=== PATIENT | female | born 1960 | race Caucasian/White ===

== ENCOUNTER 2022-06-13 15:06 | Outpatient (CLI) | payer OTHER, SELFPAY ==
[2022-06-13 16:22] LABS: Basophils Absolute Auto 0.1 K/mm3 (0.0-0.1); Basophils Percent Auto 0.8 % (0.2-1.2); Eosinophils Absolute Auto 0.4 K/mm3 (0-0.3); Eosinophils Percent Auto 4.6 % (0-4.4); Hematocrit 27.2 % (37.0-47.0); Hemoglobin 8.4 g/dL (12.0-15.0); Immature Granulocyte Absolute 0.05 K/mm3 (0.00-0.031); Immature Granulocyte Percent A 0.6 % (0-0.5); Lymphocytes Absolute Auto 2.13 K/mm3 (0.9-3.2); Lymphocytes Percent Auto 23.9 % (18.3-44.2); Mean Corpuscular HGB Conc 30.9 g/dl (32-36); Mean Corpuscular Hemoglobin 27.5 pg (26-34); Mean Corpuscular Volume 88.9 fl (80-100); Mean Platelet Volume 9.5 fl (7.4-10.4); Monocytes Absolute Auto 0.8 K/mm3 (0.1-0.6); Monocytes Percent Auto 8.7 % (2.6-8.5); Neutrophils Absolute Auto 5.5 K/mm3 (1.3-6.7); Neutrophils Percent Auto 61.4 % (45.5-73.1); Platelet Count Result 443 k/mm3 (150-375); Red Blood Count 3.06 M/mm3 (4.2-5.4); Red Cell Distribution Width 14.6 % (11.5-14.5); White Blood Count 8.9 K/mm3 (4.5-10.0)
== END 2022-06-13 15:07 | disposition home or self-care (01) ==
LOC: ANHLAB 15:12
PROVIDERS: PCP Family Medicine; Visit Provider Physician Assistant Surgical
DX: D64.9 Anemia, unspecified (principal)
CPT/HCPCS: 36415; 85025

== ENCOUNTER 2023-07-18 17:37 | Emergency (ER) | payer OTHER, SELFPAY ==
--- NOTE | ~2023-07-18 | CT_ITS ---
EXAMINATION: CT pelvis wo con DATE: 07/18/2023 21:03 INDICATION: Right hip pop and pain. TECHNIQUE: Computed tomography (CT) of the pelvis was performed without intravenous contrast. Automat ed exposure control and iterative reconstruction technique were employed. The dose-length product was 585.93 mGy-cm. COMPARISON: Pelvis and hip radiographs 07/18/2023 FINDINGS: Aortic atherosclerosis is noted. The bladder is distended. There are no pathologically enla rged lymph nodes. There is no free intraperitoneal fluid. Bone alignment is normal. No fracture. Ther e is moderate lumbar spondylosis. There is moderate osteoarthritis of the hips. IMPRESSION: 1. Moderate osteoarthritis of the hips. Reviewed, dictated and finalized at location E. OLOGY NURSE
--- NOTE | ~2023-07-18 | XR_ITS ---
EXAMINATION: XR hip RT 2V w AP pelvis DATE: 07/18/2023 18:22 INDICATION: Right hip pain. TECHNIQUE: An anteroposterior view of the pelvis and 2 views of right hip were obtained. COMPARISON: None. FINDINGS: Bone alignment is normal. No fracture. There is moderate lumbar spondylosis. There is moder ate osteoarthritis of the hips. IMPRESSION: 1. Moderate osteoarthritis of the hips. Reviewed, dictated and finalized at location E. INSPECTION SPECIALIST
[2023-07-18 17:39] VITALS: BP 131/62; PULSE 78; RESP 20; TEMP 36.2; O2SAT 100
--- NOTE | 2023-07-18 18:07 | ED.EXTPRO ---
HPI - Extremity Problem General Chief complaint: Extremity Problem,Nontraumatic <Ish Love APRN - Last Filed: 07/18/23 18:10> Stated complaint: right leg pain/swelling <Ish Love APRN - Last Filed: 07/18/23 18:10> Time Seen by Provider: 07/18/23 18:08 <Ish Love APRN - Last Filed: 07/18/23 18:10> Source: patient <Ish Love APRN - Last Filed: 07/18/23 18:10> Mode of arrival: ambulatory <Ish Love APRN - Last Filed: 07/18/23 18:10> Limitations: no limitations <Ish Love APRN - Last Filed: 07/18/23 18:10> History of Present Illness HPI Narrative: Supriya is a 62-year-old female patient presenting to the ER today with complaints of right hip/leg pain. She reports that she got up this morning and felt a pop in her hip. Initially had pain to her lateral hip and now it is more towards her groin radiating down her leg. Pain is worse when she is bearing weight. <Ish Love APRN - Last Filed: 07/18/23 18:10> Related Data Allergies/Adverse reactions: Allergies Allergy/AdvReac Type Severity Reaction Status Date / Time No Known Allergies Allergy Verified 07/18/23 20:51 <Ish Love APRN - Last Filed: 07/18/23 18:10> Review of Systems Review of Systems: Pertinent positives per HPI. Patient denies any fever, chills, rash, headache, visual changes, dizziness, cough, runny nose, sore throat, shortness of breath, chest pain, palpitations, nausea, vomiting, diarrhea, constipation, abdominal pain, or any urinary issues. <Ish Love APRN - Last Filed: 07/18/23 18:10> PMFSH Comments At the time of my signature, I reviewed and agree with the nursing past medical, surgical, social, and family history. There is no relevant family history pertinent to the patient complaint. <Ish Love APRN - Last Filed: 07/18/23 18:10> Exam Narrative: General: Well-developed, well nourished, in no apparent distress Head: Normocephalic, atraumatic. Cardio: Regular rate and rhythm, s1 and s2 normal, no murmur appreciated. Resp: Clear to auscultation bilaterally, no rhonchi, rales, wheezing or rubs. Musculoskeletal: No deformity, tender to palpation over the anterior hip joint, nontender to palpation over the lateral or posterior hip, grossly normal range of motion, muscle strength strong and equal, peripheral pulse strong, 1+ pitting edema bilaterally, no cyanosis, sitting in a wheelchair <Ish Love PURCHASE REQUEST EDITOR - Last Filed: 07/18/23 18:10> Course Course Emergency Course: Portions of this record may have been created with voice recognition software. <Ish Love APRN - Last Filed: 07/18/23 18:10> Vital Signs Vital signs: Vital Signs Temperature 97.1 F L 07/18/23 17:39 Pulse Rate 78 07/18/23 17:39 Respiratory Rate 20 07/18/23 17:39 Blood Pressure 131/62 07/18/23 17:39 Pulse Oximetry 100 07/18/23 17:39 Oxygen Delivery Room Air 07/18/23 17:39 Temperature 97.1 F L 07/18/23 17:39 Pulse Rate 76 07/18/23 20:54 Respiratory Rate 18 07/18/23 20:54 Blood Pressure 129/54 L 07/18/23 20:54 Pulse Oximetry 99 07/18/23 20:54 Oxygen Delivery Room Air 07/18/23 17:39 Vital signs reviewed <Ish Love, PURCHASE REQUEST EDITOR - Last Filed: 07/18/23 18:10> Vital Signs Temperature 97.1 F L 07/18/23 17:39 Pulse Rate 78 07/18/23 17:39 Respiratory Rate 20 07/18/23 17:39 Blood Pressure 131/62 07/18/23 17:39 Pulse Oximetry 100 07/18/23 17:39 Oxygen Delivery Room Air 07/18/23 17:39 Temperature 97.1 F L 07/18/23 17:39 Pulse Rate 76 07/18/23 20:54 Respiratory Rate 18 07/18/23 20:54 Blood Pressure 129/54 L 07/18/23 20:54 Pulse Oximetry 99 07/18/23 20:54 Oxygen Delivery Room Air 07/18/23 17:39 <Bruce Hernandez PA-C - Last Filed: 07/19/23 01:19> MDM - Extremity (Nontraumatic) MDM Narrative Medical decision making n
[2023-07-18] MEDS: ACETAMINOPHEN 500 MG TABLET 1000 MG PO (20:52)
[2023-07-18 20:54] VITALS: BP 129/54; PULSE 76; RESP 18; O2SAT 99
== END 2023-07-18 21:43 | disposition home or self-care (01) ==
PROVIDERS: Emergency Provider Physician Assistant; PCP Family Medicine
DX: S79.911A Unspecified injury of right hip, initial encounter (principal); X50.0XXA Overexertion from strenuous movement or load, initial encounter
CPT/HCPCS: 72192; 73502; 99283; A9270

== ENCOUNTER 2024-12-25 18:55 | Emergency (ER) | payer MEDICARE, MEDICAID, SELFPAY ==
--- NOTE | ~2024-12-25 | CT_ITS ---
Clinical Indication: Chest pain, abdominal pain CT Scan of the Chest, Abdomen, and Pelvis with Contrast: Technique: Contiguous sections were acquired throughout the chest, abdomen, and pelvis after intraven ous administration of 100 cc of Omnipaque 350. Dose reduction technique was used on this scan by jatin overton automated exposure control and iterative reconstruction technique. The dose-length product (DL P) was 1393.94 mGy-cm. Findings: There is no evidence of any significant mediastinal, hilar or axillary lymphadenopathy. The mediastin al soft tissues and vascular structures appear normal. Ujnbm-mu-ncpsqleh hiatal hernia present. There is no evidence of pleural or pericardial effusion. The lungs are clear. No pulmonary nodules or infiltrates are noted. There is diffuse hepatic steatosis. The spleen, pancreas, gallbladder, adrenals and kidneys are withi n normal limits. There are atherosclerotic calcifications of the aorta. No lymphadenopathy. No bowel obstruction or bowel wall thickening. There is mild diverticulosis. Urinary bladder is unremarkable. No pelvic mass seen. No ascites. Impression: No acute abnormalities seen. Ueelm-lf-lgrqxdcg hiatal hernia. Diffuse hepatic steatosis. Reviewed, dictated and finalized at [facility]. Impression: No acute abnormalities seen. Ldefd-ml-cmxocwvz hiatal hernia. Diffuse hepatic steatosis.
--- NOTE | ~2024-12-25 | CT_ITS ---
CT head without contrast Indication: Altered mental status Technique: Serial scans were obtained through the brain without the administration of contrast. Dose reduction technique was used on this scan by utilizing automated exposure control and iterative recon struction technique. The dose-length product (DLP) was 605.33 mGy-cm. Findings: There is no evidence of intracranial hemorrhage, mass lesion, or acute infarct. The ventri cles and subarachnoid spaces are dilated, consistent with mild atrophy. Low attenuation regions are seen within the periventricular white matter bilaterally, likely representing changes from chronic mi crovascular ischemic disease. There is no evidence of edema, mass effect or midline shift. The visu alized paranasal sinuses and mastoid air cells are clear. Impression: No intracranial hemorrhage, mass, or acute infarct. Atrophy and chronic white matter changes, as above. Reviewed, dictated and finalized at location . Impression: No intracranial hemorrhage, mass, or acute infarct. Atrophy and chronic white matter changes, as above.
[2024-12-25 18:56] VITALS: BP 201/73; PULSE 106; RESP 16; TEMP 36.2; O2SAT 96
--- OUTSIDE RECORDS SUMMARY | 2024-12-25 18:58 | XMS_ITS | CONTINUITY OF CARE DOCUMENT ---
Author Name sami gallardo Address Unknown Organization [facility] Address [address] [facility] [address] [place] [address] Phone [phone] Care Team Providers Care Sales Performance Analyst Name Role Phone Brea CAAL, Marino Unavailable [phone] FRANK HAM MD Unavailable FRANK HAM MD Unavailable PROBLEMS Condition Status Date Provider Notes Cardiology examination active Marino Guidry MD Hyperlipidemia active Marino Guidry MD Preoperative cardiovascular evaluation active Marino Guidry MD Degenerative joint disease active Marino alonzo MD ENCOUNTERS Date Type Provider Location Encounter Diag nosis - In-person encounter Office Visit Marino Guidry MD [facility] Cardiology examinationHyperlipidemiaPreoperative cardiovascular evaluationDegenerative joint disease VITAL SIGNS Date Observation Value Provider Body Mass Index (Ratio) 31.24 kg/m2 Luis Antonoi Guidry MD blood pressure, diastolic 80 mm[Hg] Lisa nkLogic blood pressure, systolic 140 mm[Hg] Marisa kLogmartir blood pressure, resting No Katerina Jane blood pressure, cuff size regular Cy manoj Jane blood pressure, diastolic 80 mm[Hg] Cy manoj Jane blood pressure, systolic 140 mm[Hg] Pam Jane height E&M 60 [in_i] Giselle ewing oxygen saturation, oximetry 98 % Giselle Jane respiratory rate E&M 18 /min Giselle Jane pulse rate 101 /min Giselle ewing weight E&M 160 [lb_av] Giselle ewing ALLERGIES No Known Drug Allergies HISTORY OF MEDICATION USE Medication Status Instructions Dates Provider Indications Com ments atorvastatin 10 mg tablet active Take 1 tablet by mouth once a day Giselle Jane dorzolamide 2% drops active Apply 1 drop into both eyes once a day Giselle Jane ibuprofen 600 mg tablet active Take 1 tablet by mouth twice a day Giselle Jane latanoprost 0.005% drops active Apply 1 drop into both eyes once a day Giselle Jane omeprazole 20 mg capsule,delayed release(DR/EC) active Take 1 capsule by mouth once a day Giselle Jane timolol maleate 0.5% drops active Apply 1 drop into both eyes twice a day Giselle Jane SOCIAL HISTORY Date Observation Value Provider passive cigarette sm cornelia exposure yes Marnio Guidry MD social history E&M Marital Statu s: C hildren: 2 O ccupation: Homemaker Smoking History: P atient has never smoked. Marino Guidry MD social history reviewed E&M revi ewed - no changes required Marino Guidry MD smoking status Never smoker Giselle Kristi ell FAMILY HISTORY Family Member Condition First Degree Blood Relative No Known Fam london History INSURANCE PROVIDERS Payer name Policy type / Coverage type Bessie red libertarian ID [id number] MEDICAID Medicaid [id number] ADVANCE DIRECTIVES Name Date DISCUSSED - NO DECISION MADE TREATMENT PLAN Date Name Performer [id number],S, Marino jang MD [id number],W, Marino jang MD [id number],N,P re-op eval for TKA. N eeds stress test, can't walk on treadmill due to knees (pre-op for knee replacement). Marino Guidry MD Cardiology New Patient Marino alonzo MD Cardiology New Patient Marino alonzo MD Cardiology New Patie nt :Pre-op eval for TKA. N eeds stress test, can't walk on treadmill due to knees (pre-op for knee replacement). Marino Guidry MD Date Name Stress Regadenoson HISTORY OF PROCEDURES Procedure Date Procedure Name Provider Procedure Notes S tatus EKG Marino Guidry MD complete d
--- OUTSIDE RECORDS SUMMARY | 2024-12-25 18:58 | XMS_ITS | Continuity of Care Document ---
Author Organization [facility] Address [address] [place] [address] [place] [address] Phone Care Team Providers Care Loader Operator Supervisor Name Role Phone Santos OD, Karthik Unavailable [...] Copied on Encounter Office/outpat ient Visit, Est [facility], [address] [place] [address] [address], [place], [place], [address], tel:[phone] [facility] [place] No Information Sep-1 5-201 0 Santos OD Karthik. [address] [place], [place] [address]ate Center , [address], [place], [address], [place]. tel:[phone] [facility], [address] [place] [address] [address], [place], [place], [address], tel:[phone] [facility] [place] No Information Jaguar-1 8-201 0 Santos OD Karthik. [address] [place] [address] Maryjo Monique, [address], [place], [place], [facility], [place]. tel:[phone] Referring Provider: Karthik Santos OD A, [address] [place], [place] [address]ate Maryjo Monique [address], [place], [place], [facility]. tel:[phone] Office/outpat ient Visit, [facility], [address] [place] [address] [address], [place], [place], [address], [place] tel:[phone] [facility] No Information May-2 5-201 0 Santos OD Karthik. [address] [place], [place] [address]ate Maryjo Monique, [address], [place], [address], [place]. tel:[phone] Office/outpat ient Visit, [facility], [address] [place] [address] [address], [place], [place], [address], [place] tel:[phone] [facility] No Information May-0 4-201 0 Santos OD Karthik. [facility] Maryjo Monique, [address], [place], [address], [place]. tel:[phone] [facility], [address] [place] [address] [address], [place], [place], [address], [place] tel:[phone] [facility] [place] No Information Apr-2 3-201 0 Santos OD Karthik. [address] [place], [place] [address]ate Center , [address], [place], [place], [facility], [place]. tel:[phone] Referring Provider: Karthik Santos OD A, [address] [place], [place] [address]ate Center [address], [place], [facility]. tel:[phone] [facility], [address] [place] [address] [address], [place], [place], [address], [place] tel:[phone] [facility] [place] No Information Mar-2 3-201 0 Santos OD Karthik. [address] [place] [address] Center , [address], [place], [facility], [place]. tel:[phone] [facility], [address] [place] [address] [address], [place], [place], [address], [place] tel:[phone] [facility] No Information Mar-0 9-201 0 Santos OD Karthik. [address] [place] [address] Maryjo Monique, [address], [place], [facility], [place]. tel:[phone] [facility], [address] [place] [address] [address], [place], [place], [address], [place] tel:[phone] [facility] No Information Mar-0 2-201 0 Alexx Rivas. [address] [place], [place] [address]ate Center , [address], [place], [place], [facility], [place]. tel:[phone] Referring Provider: Rob Bertrand, [address] [place], [place] [address]ate Center [address], [place], [place], [facility]. tel:[phone] Office/outpat ient Visit, Est [facility], [address] [place] [address] [address], [place], [place], [address], [place] tel:[phone] SEC [place] [facility] No Information 1-201 0 Alexx Rivas. [address] , [address], [place], [address], [place]. tel:[phone] [facility], [address], [place], [place], [address], [place] tel:[phone] [facility] No Information 0 5-200 9 Doialonzo Rivas. [address] , [address], [place], [facility], [place]. tel:[phone] [facility], [address] [place] [address] [address], [place], [place], [address], [place] tel:[phone] [facility] No Information 2200 9 Doialonzo Rivas. [address] , [address], [place], [facility], [place]. tel:[phone] [facility], [address] [place] [address] [address], [place], [place], [address], [place] tel:[phone] [facility] No Information 1200 9 Doialonzo Edemely. [address] , [address], [place], [facility], [place]. tel:[phone] [facility], [address] [address], [place], [place], [address], [place] tel:[phone] [facility] No Information 2200 9 Doialonzo Rivas. [address] , [address], [place], [facility], [place]. tel:[phone] Referring Provider: Rob Bertrand, [address], [place], [facility]. tel:[phone] [facility], [address] [address], [place], [place], [address], [place] tel:[phone] [facility] No Information Jaguar-1 6-200 9 Doisy Edward. [address] , [address], [place], [address], [place]. tel:[phone] Office/outpat ient Visit, Est [facility], [address] [address], [place], [place], [address], [place] tel:[phone] [facility] No Information Jaguar-0 1-200 9 Doisy Edward. [address] , [address], [place], [facility], [place]. tel:[phone] [facility], [address] [place] [address] [address], [place], [place], [address], [place] tel:[phone] [facility] No Information May-0 2-200 8 Doisy Edward. [address] [facility] , [address], [place], [facility], [place]. tel:[phone] [facility], [address] [address], [place], [place], [address], [place] tel:[phone] [facility] No Information Apr-2 3-200 8 Doisy Edemely. [facility] Center , [address], [place], [facility], [place]. tel:[phone] [facility], [address] [address], [place], [place], [address], [place] tel:[phone] [facility] No Information Apr-2 2-200 8 Doisy Edward. [address] [facility] , [address], [place], [facility], [place]. tel:[phone] Office/outpat ient Visit, [facility], [address] [address], [place], [place], [address], [place] tel:[phone] [facility] No Information Mar-3 1-200 8 Doisy Edemely. [address] [facility] , [address], [place], [address], [place]. tel:[phone] Referring Provider: Karthik Santos OD Jerzy, [address] [facility] [address], [place], [address]. tel:[phone] Office/outpat ient Visit, [facility], [address] [place] [address] [address], [place], [place], [address], [place] tel:[phone] [facility] No Information Mar-1 2-200 8 Santos OD Karthik. [address] [facility] , [address], [place], [address], [place]. tel:[phone] Office/outpat ient Visit, [facility], [address] [address], [place], [place], [address], [place] tel:[phone] [facility] No Information Nov-2 0-200 7 Wankum Donato. [address], [address], [place], [place], [address], [place]. tel:[phone] Office/outpat ient Visit, [facility], [address], [place], [place], [address], [place] tel:[phone] [facility] No Information Oct-2 3-200 7 Wankum Donato. [address], [address], [place], [place], [address], [place]. tel:[phone] Office/outpat ient Visit, [facility], [address] [place] [address] [address], [place], [place], [address], [place] tel:[phone] [facility] [place] No Information Sep-2 5-200 7 Wankum Donato. [address], [address], [place], [place], [address], [place]. tel:[phone] Office/outpat ient Visit, [facility], [address] [facility] [address], [place], [place], [address], tel:[phone] [facility] No Information 8-200 7 Enrike Sewell. [address] [facility], [facility] [place], [address], [place]. tel:[phone] Referring Provider: Donato Bertrand, [address] [facility] [address], [place], [address] . tel:[phone] [facility], [address] [facility] [address], [place], [place], [address], tel:[phone] [facility] No Information 5200 7 Enrike Sewell. [address] [facility], [facility] [place], [address], [place]. tel:[phone] Referring Provider: Donato Bertrand, [address] [facility], [place], [address] . tel:[phone] Office/outpat ient Visit, [facility], [address] [facility] [address], [place], [place], [address], [place] tel:[phone] [facility] No Information 200 7 Enrike Sewell. [address] [facility], [facility] [place], [address], [place]. tel:[phone] Family History Family Member Type Diagnosis Age At Onset No Information Payers Payer name Insurance type Covered republican ID Marya shayyyosef(s) [place] [id number] Social History Type Description Quantity Date Captured [...]
[2024-12-25 21:08] VITALS: BP 179/77; PULSE 99; RESP 18; TEMP 37.3; O2SAT 95
--- NOTE | 2024-12-25 23:11 | ECG_ITS ---
Test Date: 2024-12-25 23:34:46 Measurements Intervals [place] Rate: 96 P: 32 MI: 128 QRS: -12 QRSD: 85 T: 0 QT: 349 QTc: 442 Interpretive Statements SINUS RHYTHM NONSPECIFIC T-WAVE ABNORMALITY No previous ECG available for comparison Electronically Signed On 12-26-2024 15:21:37 CDT by Boyd Lock M.D.
--- NOTE | 2024-12-25 23:15 | ED_ITS ---
HPI - Dizziness General Chief Complaint: Dizziness Stated Complaint: dizzy Time Seen by Provider: 12/25/24 22:54 History of Present Illness HPI Narrative: Patient is a 64-year-old female who presents to the ER due to weakness, altered mental status, and not feeling well. Her caregiver reports she intellectual disabilities so she has caregivers who come in and spent time with her each day. Patient's caregiver that is here with her today reports she has not been acting like herself since Monday, 5 days ago. Her caregiver reports she has been ?zoning out, disoriented, and just off. Patient endorses recent nausea and headaches. Her caregiver reports she took patient to urgent care earlier today and patient's blood pressure was 190/80. Patient denies any recent sore throat, neck stiffness, or urinary symptoms. She reports she has been drinking a fair amount of water. Patient does endorse right upper quadrant pain. She has a history of glaucoma, right pupil abnormality, and high blood pressure. Related Data Allergies Allergy/AdvReac Type Severity Reaction Status Date / Time No Known Allergies Allergy Verified 12/25/24 18:59 Review of Systems 2 Review of Systems: All systems reviewed & are unremarkable except as noted in HPI and below Exam 2 Narrative: GENERAL: Well appearing, well-nourished, non-toxic, in no acute distress. HEAD: Normocephalic, atraumatic. NECK: Supple. No adenopathy, no masses. RESPIRATORY: Airway patent, respirations nonlabored. Clear to auscultation bilaterally, no rales, rhonchi, wheezing. CARDIOVASCULAR: Tachycardia without murmurs, rubs, or gallops. Peripheral pulses 2+ and equal bilaterally. ABDOMINAL: Soft, tender right upper quadrant with palpation, nondistended, no hepatosplenomegaly. Normoactive BS. MUSCULOSKELETAL: Moves all extremities. Strength/ROM intact without gross deformities. SKIN: Warm, dry, normal color. No rashes. NEURO: A&O X3. Speech clear. Cranial nerves II-XII intact. No ataxic movements. PSYCHIATRIC: Appropriate mood and affect. Normal interaction. Course Vital Signs Vital signs: Vital Signs Temperature 36.2 C L 12/25/24 18:56 Pulse Rate 106 H 12/25/24 18:56 Respiratory Rate 16 12/25/24 18:56 Blood Pressure 201/73 H 12/25/24 18:56 Pulse Oximetry 96 12/25/24 18:56 Temperature 37.3 C 12/25/24 21:08 Pulse Rate 99 12/25/24 21:08 Respiratory Rate 18 12/25/24 21:08 Blood Pressure 179/77 H 12/25/24 21:08 Pulse Oximetry 95 12/25/24 21:08 MDM - Dizziness MDM Narrative Medical decision making narrative: Patient is a 64-year-old female who presents to the ER due to weakness, altered mental status, and not feeling well. Her caregiver reports she intellectual disabilities so she has caregivers who come in and spent time with her each day. Patient's caregiver that is here with her today reports she has not been acting like herself since Monday, 5 days ago. Her caregiver reports she has been ?zoning out, disoriented, and just off. Patient endorses recent nausea and headaches. Her caregiver reports she took patient to urgent care earlier today and patient's blood pressure was 190/80. Patient denies any recent sore throat, neck stiffness, or urinary symptoms. She reports she has been drinking a fair amount of water. Patient does endorse right upper quadrant pain. She has a history of glaucoma, right pupil abnormality, and high blood pressure. Labs Ordered: CBC, CMP, CK, UDS, UA, INR, PTT, troponin, TSH Imaging Ordered: CT head, CT chest abdomen pelvis Medications Ordered: 1 L normal saline IV bolus x 2, ceftriaxone 1 g IV Results: Patient's head CT scan indicates no acute intracranial hemorrhage. No midline shift or mass effect. The territory low grade-white matter differentiation is maintained throughout. The ventricles and sulci are commensurate with age. Pt's chest/abdomen/pelvis indicates no pulmonary contusion or pneumothorax. No acute fractures. No traumatic visceral injury. Small hiatal hernia. Diverticulosis without acute diverticulitis. Patient's CBC indicates a white blood cell count of 14.4. Her CMP indicates a sodium of 130, BUN of 18, creatinine of 0.86, glucose of 206, AST of 68, ALT of 53. Her CK was 110. Patient's troponin was 0.028. Urinalysis indicates 2+ leukocytes with 21-50 white blood cell count. Patient's respiratory swab was negative for influenza, COVID, RSV. Diagnosis: Urinary tract infection, mild dehydration, elevated blood sugar, hypertension Patient Education/Shared MDM: Results of lab work and imaging shared with patient and her caregiver. She will be given 2L NS to help rehydrate pt and correct her low sodium. Pt will be given a dose of Ceftriaxone IV here in the ER and then sent home on oral antibiotics. Her blood pressure has been intermittently elevated and normotensive in the ER. Her most recent BP reading was 164/54. Pt should also follow-up on her elevated BP readings with her PCP. Patient strongly advised to maintain hydration status upon discharge. She will be discharged home with a prescription for Keflex PO. Her glucose in the ER is in the low 200s and her caregiver reports she has been diagnosed with pre- diabetes. She should follow up with her PCP for further evaluation regarding her elevated glucose readings in the ER. Strict return precautions provided. Patient and her caregiver verbalized understanding and is in agreement with plan. Vital signs stable at time of discharge. All questions answered. Differential Diagnosis Differential diagnosis: Likely cerebrovascular accident and other (Sepsis, urinary tract infection, pyelonephritis, dehydration) Lab Data Attestation: I reviewed the patient's lab results. 12/25/24 23:49 12/25/24 23:49 Labs: Lab Results 12/25/24 12/25/24 12/25/24 Range/Units 23:44 23:48 23:49 WBC 14.4 H (4.5-10.0) K/mm3 RBC 4.30 (4.2-5.4) M/mm3 Hgb 13.0 D (12.0-15.0) g/dL Hct 40.2 (37.0-47.0) % MCV 93.5 (80-100) fl MCH 30.2 (26-34) pg MCHC 32.3 (32-36) g/dl RDW 12.9 (11.5-14.5) % Plt Count 363 (150-375) k/mm3 MPV 9.6 (7.4-10.4) fl Immature Gran % (Auto) 0.6 H (0-0.5) % Neut % (Auto) 73.7 H (45.5-73.1) % Lymph % (Auto) 17.0 L (18.3-44.2) % Union % (Auto) 8.1 (2.6-8.5) % Eos % (Auto) 0.3 (0-4.4) % Baso % (Auto) 0.3 (0.2-1.2) % Lymph # (Auto) 2.45 (0.9-3.2) K/mm3 Union # (Auto) 1.2 H (0.1-0.6) K/mm3 Eos # (Auto) 0.0 (0-0.3) K/mm3 Baso # (Auto) 0.0 (0.0-0.1) K/mm3 Abs Immat Gran (auto) 0.09 H (0.00-0.031) K/mm3 Absolute Neuts (auto) 10.6 H (1.3-6.7) K/mm3 Absolute Nucleated RBC 0.000 (0.0-0.012) K/mm3 Nucleated RBC % 0.0 (0.0-0.2) % PT 12.9 (11.1-14.7) Seconds INR 0.9 APTT 25.8 (22.3-36.8) Seconds Sodium 130 L (137-145) mmol/L Potassium 5.0 (3.4-5.0) mmol/L Chloride 98 (98-107) mmol/L Carbon Dioxide 24 (22-30) mmol/L Anion Gap 8 (4-12) mmol/L BUN 18 H (7-17) mg/dL Creatinine 0.86 (0.7-1.0) mg/dL Estim Creat Clear Calc 55 ml/min Estimated GFR > 60 (59 - ) Glucose 206 H (65-110) mg/dL POC Capillary Glucose 202 H (65-105) mg/dl Lactic Acid Calcium 9.0 (8.4-10.2) mg/dL Total Bilirubin 1.3 (0.2-1.3) mg/dL AST 68 H (14-36) U/L ALT 53 H (6-35) U/L Alkaline Phosphatase 59 (38-126) U/L Total Creatine Kinase 110 (30-135) U/L Troponin I 0.028 (0.000-0.034) ng/mL C-Reactive Protein Pending Total Protein 8.0 (6.3-8.2) g/dL Albumin 4.8 (3.5-5.1) g/dL TSH 3.200 (0.465-4.680) uIU/mL Urine Color Yellow (Yellow) Urine Appearance Clear (Clear) Urine pH 6.5 (5.0-9.0) Ur Specific [place]ott 1.014 (1.001-1.035) Urine Protein 1+ H (Negative) mg/dL Urine Glucose (UA) Negative (Negative) mg/dL Urine Ketones Negative (Negative) mg/dL Ur Blood (Man) Negative (Negative) Urine Nitrate Negative (Negative) Urine Bilirubin Negative (Negative) Urine Urobilinogen 1.0 (<2.0) mg/dL Leukocyte Esterase Rfl 2+ H (Negative) DIANNA/UL Urine RBC 0-2 (0-2) /hpf Urine WBC 21-50 H (0-3) /hpf Ur Squamous Epith Cells Occasional (Few) /hpf Urine Bacteria Rare /hpf Urine Casts 0-2 Urine Opiates Screen Negative (Negative) Urine Methadone Screen Negative (Negative) Ur Barbiturates Screen Negative (Negative) Ur Phencyclidine Scrn Negative (Negative) Ur Amphetamine Screen Negative (Negative) U Benzodiazepines Scrn Negative (Negative) Urine Cocaine Screen Negative (Negative) U Cannabinoids Screen Negative (Negative) Influenza A (RT-PCR) Negative (Negative) Influenza B (RT-PCR) Negative (Negative) RSV (RT-PCR) Negative (Negative) SARS-CoV-2 RNA (RT-PCR) Negative (Negative) 12/26/24 Range/Units 03:35 WBC (4.5-10.0) K/mm3 RBC (4.2-5.4) M/mm3 Hgb (12.0-15.0) g/dL Hct (37.0-47.0) % MCV (80-100) fl MCH (26-34) pg MCHC (32-36) g/dl RDW (11.5-14.5) % Plt Count (150-375) k/mm3 MPV (7.4-10.4) fl Immature Gran % (Auto) (0-0.5) % Neut % (Auto) (45.5-73.1) % Lymph % (Auto) (18.3-44.2) % Union % (Auto) (2.6-8.5) % Eos % (Auto) (0-4.4) % Baso % (Auto) (0.2-1.2) % Lymph # (Auto) (0.9-3.2) K/mm3 Union # (Auto) (0.1-0.6) K/mm3 Eos # (Auto) (0-0.3) K/mm3 Baso # (Auto) (0.0-0.1) K/mm3 Abs Immat Gran (auto) (0.00-0.031) K/mm3 Absolute Neuts (auto) (1.3-6.7) K/mm3 Absolute Nucleated RBC (0.0-0.012) K/mm3 Nucleated RBC % (0.0-0.2) % PT (11.1-14.7) Seconds INR APTT (22.3-36.8) Seconds Sodium (137-145) mmol/L Potassium (3.4-5.0) mmol/L Chloride (98-107) mmol/L Carbon Dioxide (22-30) mmol/L Anion Gap (4-12) mmol/L BUN (7-17) mg/dL Creatinine (0.7-1.0) mg/dL Estim Creat Clear Calc ml/min Estimated GFR (59 - ) Glucose (65-110) mg/dL POC Capillary Glucose (65-105) mg/dl Lactic Acid Pending Calcium (8.4-10.2) mg/dL Total Bilirubin (0.2-1.3) mg/dL AST (14-36) U/L ALT (6-35) U/L Alkaline Phosphatase (38-126) U/L Total Creatine Kinase (30-135) U/L Troponin I (0.000-0.034) ng/mL C-Reactive Protein Total Protein (6.3-8.2) g/dL Albumin (3.5-5.1) g/dL TSH (0.465-4.680) uIU/mL Urine Color (Yellow) Urine Appearance (Clear) Urine pH (5.0-9.0) Ur Specific [place] (1.001-1.035) Urine Protein (Negative) mg/dL Urine Glucose (UA) (Negative) mg/dL Urine Ketones (Negative) mg/dL Ur Blood (Man) (Negative) Urine Nitrate (Negative) Urine Bilirubin (Negative) Urine Urobilinogen (<2.0) mg/dL Leukocyte Esterase Rfl (Negative) DIANNA/UL Urine RBC (0-2) /hpf Urine WBC (0-3) /hpf Ur Squamous Epith Cells (Few) /hpf Urine Bacteria /hpf Urine Casts Urine Opiates Screen (Negative) Urine Methadone Screen (Negative) Ur Barbiturates Screen (Negative) Ur Phencyclidine Scrn (Negative) Ur Amphetamine Screen (Negative) U Benzodiazepines Scrn (Negative) Urine Cocaine Screen (Negative) U Cannabinoids Screen (Negative) Influenza A (RT-PCR) (Negative) Influenza B (RT-PCR) (Negative) RSV (RT-PCR) (Negative) SARS-CoV-2 RNA (RT-PCR) (Negative) Imaging Data Attestation: I personally reviewed and interpreted this imaging study as follows: Radiologist's impression: Patient's head CT scan indicates no acute intracranial hemorrhage. No midline shift or mass effect. The territory low grade-white matter differentiation is maintained throughout. The ventricles and sulci are commensurate with age. Pt's chest/abdomen/pelvis indicates no pulmonary contusion or pneumothorax. No acute fractures. No traumatic visceral injury. Small hiatal hernia. Diverticulosis without acute diverticulitis. Discharge Plan Discharge Clinical Impression: Urinary tract infection, Dehydration, mild Patient Disposition: Home Condition: Stable Instructions: Antibiotic Form, Urinary Tract Infection in Women (ED) Additional Instructions: Please return to the ER with any worsening symptoms. Follow-up with primary care provider as soon as possible. Take all medications as prescribed, including regularly scheduled medications. Complete your full dose of antibiotics. Please remember to drink lots of water. You may take Tylenol at home for pain control. Patient Language: Amharic Prescriptions: New cephalexin 500 mg capsule 500 mg PO Q8H 7 Days Qty: 21 0RF Follow-up/Referrals: Sg,Bart Bertrand MD [Primary Care Provider] - Time of Disposition: 03:41
--- OUTSIDE RECORDS SUMMARY | 2024-12-25 23:21 | XMS_ITS | CONTINUITY OF CARE DOCUMENT ---
Author Name sami gallardo Address Unknown Organization [facility] Address [address] [facility] [address] [place] [address] Phone [phone] Care Team Providers Care Retail Advertising Executive Name Role Phone Brea CAAL, Marino Unavailable [phone] FRANK HAM MD Unavailable FRANK HAM MD Unavailable PROBLEMS Condition Status Date Provider Notes Cardiology examination active Marino Guidry MD Hyperlipidemia active Marino Guidry MD Preoperative cardiovascular evaluation active Marino Guidry MD Degenerative joint disease active Marino alonzo MD ENCOUNTERS Date Type Provider Location Encounter Diag nosis - In-person encounter Office Visit Marino Guidry MD [facility] Cardiology examinationHyperlipidemiaPreoperative cardiovascular evaluationDegenerative joint disease VITAL SIGNS Date Observation Value Provider Body Mass Index (Ratio) 31.24 kg/m2 Luis Antonio Guidry MD blood pressure, diastolic 80 mm[Hg] [...] Provider passive cigarette sm cornelia exposure yes Marino Guidry MD social history E&M Marital Statu [...] Bessie red libertarian ID [id number] Medicaid [id number] ADVANCE DIRECTIVES Name Date DISCUSSED - NO DECISION MADE TREATMENT PLAN Date Name Performer [id number],S, Marino jang MD [id number],W, Marino jang MD [id number],N,P re-op eval for TKA. N eeds stress [...]
--- OUTSIDE RECORDS SUMMARY | 2024-12-25 23:21 | XMS_ITS | Continuity of Care Document ---
Author Organization [facility] Address [id number] [place] [address] [place] [address] Phone Care Team Providers Care Dental Assistant Instructor Name Role Phone Santos OD, Karthik Unavailable [...] Copied on Encounter Office/outpat ient Visit, [facility], [address] [place] [address] [address], [place], [place], [address], tel:[phone] [facility] [place] No Information Sep-1 5-201 0 Santos OD Karthik. [address] [place], [place] [address]ate Center , [address], [place], [address], [place]. tel:[phone] [facility], [address] [place] [address] [address], [place], [place], [address], tel:[phone] SEC [facility] No Information Jaguar-1 8-201 0 Santos OD Karthik. [address] [place] [address] Maryjo Monique, [address], [place], [place], [facility], [place]. tel:[phone] Referring Provider: Karthik Santos OD A, [address] [place], [place] [address]ate Maryjo Monique [address], [place], [facility]. tel:[phone] Office/outpat ient Visit, [facility], [address] [place] [address] [address], [place], [place], [address], [place] tel:[phone] SEC [facility] No Information May-2 5-201 0 Santos OD Karthik. [address] [place], [place] [address]ate Maryjo Monique, [address], [place], [address], [place]. tel:[phone] Office/outpat ient Visit, [facility], [address] [place] [address] [address], [place], [place], [address], [place] tel:[phone] SEC [facility] No Information May-0 4-201 0 Santos OD Karthik. [facility] Maryjo Monique, [address], [place], [address], [place]. tel:[phone] [facility], [address] [place] [address] [address], [place], [place], [address], [place] tel:[phone] [facility] [place] No Information Apr-2 3-201 0 Santos OD Karthik. [address] [place], [place] [address]ate Center , [address], [place], [facility], [place]. tel:[phone] Referring Provider: Karthik Santos OD A, [address] [place], [place] [address]ate Center [address], [place], [facility]. tel:[phone] [facility], [address] [place] [address] [address], [place], [place], [address], [place] tel:[phone] [facility] [place] No Information Mar-2 3-201 0 Santos OD Karthik. [address] [place] [address] Center , [address], [place], [facility], [place]. tel:[phone] [facility], [address] [place] [address] [address], [place], [place], [address], [place] tel:[phone] SEC [facility] No Information Mar-0 9-201 0 Santos OD Akrthik. [address] [place] [address] Maryjo Monique, [address], [place], [facility], [place]. tel:[phone] [facility], [address] [place] [address] [address], [place], [place], [address], [place] tel:[phone] [facility] No Information Mar-0 2-201 0 Alexx Rivas. [address] [place], [place] [address]ate Center , [address], [place], [facility], [place]. tel:[phone] Referring Provider: Rob Bertrand, [address] [place], [place] [address]ate Center [address], [place], [facility]. tel:[phone] Office/outpat ient Visit, Est [facility], [address] [place] [address] [address], [place], [place], [address], [place] tel:[phone] SEC [place] [facility] No Information 1-201 0 Alexx Rivas. [address] , [address], [place], [address], [place]. tel:[phone] [facility], [address], [place], [place], [address], [place] tel:[phone] SEC [facility] No Information 0 5-200 9 Doialonzo Rivas. [address] , [address], [place], [facility], [place]. tel:[phone] [facility], [address] [place] [address] [address], [place], [place], [address], [place] tel:[phone] [facility] No Information 2200 9 Doialonzo Rivas. [address] , [address], [place], [facility], [place]. tel:[phone] [facility], [address] [place] [address] [address], [place], [place], [address], [place] tel:[phone] [facility] No Information 1200 9 Doialonzo Edemely. [address] , [address], [place], [facility], [place]. tel:[phone] [facility], [address], [place], [place], [address], [place] tel:[phone] SEC [facility] No Information 2200 9 Doialonzo Rivas. [address] , [address], [place], [facility], [place]. tel:[phone] Referring Provider: Rob Bertrand, [address], [place], [facility]. tel:[phone] [facility], [address], [place], [place], [address], [place] tel:[phone] [facility] No Information Jaguar-1 6-200 9 Doisy Edward. [address] , [address], [place], [address], [place]. tel:[phone] Office/outpat ient Visit, Est [facility], [address], [place], [place], [address], [place] tel:[phone] [facility] No Information Jaguar-0 1-200 9 Doisy Edward. [address] , [address], [place], [facility], [place]. tel:[phone] [facility], [address] [place] [address] [address], [place], [place], [address], [place] tel:[phone] [facility] No Information May-0 2-200 8 Doisy Edward. [address] [facility] , [address], [place], [facility], [place]. tel:[phone] [facility], [address], [place], [place], [address], [place] tel:[phone] [facility] No Information Apr-2 3-200 8 Doisy Edemely. [facility] , [address], [place], [facility], [place]. tel:[phone] [facility], [address], [place], [place], [address], [place] tel:[phone] [facility] No Information Apr-2 2-200 8 Doisy Edward. [address] [facility] , [address], [place], [facility], [place]. tel:[phone] Office/outpat ient Visit, [facility], [address], [place], [place], [address], [place] tel:[phone] [facility] No Information Mar-3 1-200 8 Doisy Edemely. [address] [facility] Center , [address], [place], [address], [place]. tel:[phone] Referring Provider: Karthik Santos OD Jerzy, [address] [facility] [address], [place], [address]. tel:[phone] Office/outpat ient Visit, [facility], [address] [place] [address] [address], [place], [place], [address], [place] tel:[phone] SEC [facility] No Information Mar-1 2-200 8 Santos OD Karthik. [address] [facility] , [address], [place], [address], [place]. tel:[phone] Office/outpat ient Visit, [facility], [address], [place], [place], [address], [place] tel:[phone] [facility] No Information Nov-2 0-200 7 Wankum Donato. [address], [place], [place], [address], [place]. tel:[phone] Office/outpat ient Visit, [facility], [address], [place], [place], [address], [place] tel:[phone] [facility] No Information Oct-2 3-200 7 Wankum Donato. [address], [address], [place], [place], [address], [place]. tel:[phone] Office/outpat ient Visit, [facility], [address] [place] [address] [address], [place], [place], [address], [place] tel:[phone] [facility] [place] No Information Sep-2 5-200 7 Wankum Donato. [address], [place], [place], [address], [place]. tel:[phone] Office/outpat ient Visit, [facility], [address] [facility] [address], [place], [place], [address], tel:[phone] SEC [facility] No Information 8-200 7 Enrike [place]. [address] [facility], [facility] [place], [address], [place]. tel:[phone] Referring Provider: Donato Bertrand, [address] [facility] [address], [place], [address] . tel:[phone] [facility], [address] [facility] [address], [place], [place], [address], tel:[phone] SEC [facility] No Information 5200 7 Enrike [place]. [address] [facility], [facility] [place], [address], [place]. tel:[phone] Referring Provider: Donato Bertrand, [address] [facility] [address], [place], [address] . tel:[phone] Office/outpat ient Visit, [facility] [address] [facility] [address], [place], [place], [address], [place] tel:[phone] SEC [facility] No Information 200 7 Enrike [place]. [address] [facility], [facility] [place], [address], [place]. tel:[phone] Family History Family Member Type Diagnosis Age At Onset No Information Payers Payer name Insurance type Covered republican ID Marya shayyyosef(s) Medicaid [place] [id number] Social History Type Description Quantity Date Captured [...]
[2024-12-25 23:38] VITALS: BP 177/57; PULSE 93; RESP 19; O2SAT 99
[2024-12-25 23:48] LABS: Glucose Point of Care 202 mg/dl (65-105)
[2024-12-25 23:58] LABS: Basophils Percent Auto 0.3 % (0.2-1.2); Eosinophils Percent Auto 0.3 % (0-4.4); Hematocrit 40.2 % (37.0-47.0); Immature Granulocyte Absolute 0.09 K/mm3 (0.00-0.031); Immature Granulocyte Percent A 0.6 % (0-0.5); Lymphocytes Absolute Auto 2.45 K/mm3 (0.9-3.2); Mean Corpuscular HGB Conc 32.3 g/dl (32-36); Mean Corpuscular Hemoglobin 30.2 pg (26-34); Mean Corpuscular Volume 93.5 fl (80-100); Mean Platelet Volume 9.6 fl (7.4-10.4); Monocytes Absolute Auto 1.2 K/mm3 (0.1-0.6); Monocytes Percent Auto 8.1 % (2.6-8.5); Neutrophils Absolute Auto 10.6 K/mm3 (1.3-6.7); Neutrophils Percent Auto 73.7 % (45.5-73.1); Platelet Count Result 363 k/mm3 (150-375); Red Cell Distribution Width 12.9 % (11.5-14.5); White Blood Count 14.4 K/mm3 (4.5-10.0)
[2024-12-26 00:01] VITALS: BP 158/63; PULSE 88; RESP 18; O2SAT 98
[2024-12-26 00:05] LABS: Add Urine Microscopic? YES; Appearance Urine Clear (Clear); Bacteria Urine Rare /hpf; Bilirubin Urine Negative (Negative); Blood Urine Negative (Negative); Color Urine Yellow (Yellow); Glucose Urine UA Negative (Negative); Ketones Urine Negative (Negative); Leukocyte Esterase Ur 2+ LEU/UL (Negative); Nitrate Urine Negative (Negative); Non Pathogenic Casts 0-2; Protein Urine 1+ mg/dL (Negative); RBC Urine 0-2 /hpf (0-2); Specific Grav Ur 1.014 (1.001-1.035); Squamous Epithelial Cell Urine Occasional /hpf (Few); WBC Urine 21-50 /hpf (0-3); pH Urine 6.5 (5.0-9.0)
[2024-12-26 00:08] LABS: Alanine Aminotransferase 53 U/L (6-35); Albumin Level 4.8 g/dL (3.5-5.1); Alkaline Phosphatase 59 U/L (38-126); Anion Gap 8 mmol/L (4-12); Aspartate Amino Transferase 68 U/L (14-36); Bilirubin,Total 1.3 mg/dL (0.2-1.3); Blood Urea Nitrogen 18 mg/dL (7-17); Carbon Dioxide 24 mmol/L (22-30); Chloride 98 mmol/L (98-107); Creatine Kinase 110 U/L (30-135); Estimated CRCL calculation 55 ml/min; Estimated Glomerular Filt Rate > 60; Glucose 206 mg/dL (65-110); Sodium 130 mmol/L (137-145)
[2024-12-26 00:13] LABS: INR 0.9; Partial Thromboplastin Time 25.8 Seconds (22.3-36.8); Prothrombin Time 12.9 Seconds (11.1-14.7)
[2024-12-26 00:16] VITALS: BP 158/61; PULSE 91; RESP 19; O2SAT 94
[2024-12-26 00:16] LABS: Barbiturate Screen Urine Negative (Negative); Benzodiazepines Screen Urine Negative (Negative)
[2024-12-26 00:19] LABS: Troponin I 0.028 ng/mL (0.000-0.034)
[2024-12-26 00:22] LABS: Amphetamine Screen Urine Negative (Negative); Cannabinoid Screen Urine Negative (Negative); Cocaine Screen Urine Negative (Negative); Methadone Screen Urine Negative (Negative); Opiate Screen Urine Negative (Negative); Phencyclidine Screen Urine Negative (Negative)
[2024-12-26 00:35] LABS: Influenza A QL RT-PCR Negative (Negative); Influenza B QL RT-PCR Negative (Negative); RSV RNA, RT-PCR Negative (Negative); SARS-CoV-2 RNA PCR Negative (Negative)
[2024-12-26 00:46] VITALS: BP 186/84; PULSE 98; RESP 20; O2SAT 94
[2024-12-26] MEDS: SODIUM CHLORIDE 0.9% IV 1,000 ML 999 ML IV CONT ×2 (03:38)
[2024-12-26 03:49] LABS: CRP 0.6 mg/dL (<1.0)
[2024-12-26 03:52] LABS: Lactic Acid Reflex 0.9 mmol/L (0.7-2.0)
[2024-12-26 05:16] VITALS: BP 168/97; PULSE 86; RESP 19; O2SAT 97
[2024-12-26 05:17] VITALS: PULSE 96
[2024-12-26 05:52] VITALS: BP 163/65; PULSE 97; RESP 19; TEMP 37.1; O2SAT 97
== END 2024-12-26 05:54 | disposition home or self-care (01) ==
PROVIDERS: Emergency Provider Registered Nurse; PCP Family Medicine
DX: N39.0 Urinary tract infection, site not specified (principal); E86.0 Dehydration; R10.11 Right upper quadrant pain; I10 Essential (primary) hypertension; H40.9 Unspecified glaucoma; F79 Unspecified intellectual disabilities; Z20.822 Contact with and (suspected) exposure to COVID-19; R94.31 Abnormal electrocardiogram [ECG] [EKG]
CPT/HCPCS: 36415; 70450; 71260; 74177; 80053; 80307; 81001; 82550; 82948; 83605; 84443; 84484; 85025; 85610; 85730; 86140; 87040; 87086; 87637; 93005; 96365; 99284; J0696; J7030; Q9967

== ENCOUNTER 2025-05-30 22:33 | Emergency (ER) | payer MEDICARE, MEDICAID, SELFPAY ==
--- OUTSIDE RECORDS SUMMARY | 2010-04-14 07:30 | XMS_ITS | Continuity of Care Document ---
Author Organization [facility] Address [id number] [place] [address] [place] [address] Phone Care Team Providers Care Solar Applications Development Engineer Name Role Phone Santos OD, Karthik Unavailable Unavailable Procedures Procedure Date Office/outpatient Visit, Est Optic Nerve Topography Optic Nerve Topography Office/outpatient Visit, Est Office/outpatient Visit, Est Visual Field Examination(s) Eye Exam & Treatment Refraction Post-op Follow-up Visit Laser Surgery Of Eye Office/outpatient Visit, Est Post-op Follow-up Visit Post-op Follow-up Visit Remove Cataract, Insert Lens Post-op Follow-up Visit Echo Exam Of Eye-Professional 9 After Cataract Laser Surgery Office/outpatient Visit, Est Post-op Follow-up Visit Post-op Follow-up Visit Remove Cataract, Insert Lens Cyclophotocoag,endoscopic Office/outpatient Visit, Est Echo Exam Of Eye Office/outpatient Visit, Est Office/outpatient Visit, Est Office/outpatient Visit, Est Office/outpatient Visit, Est Office/outpatient Visit, Est Corneal Pachymetry Visual Field Examination(s) Office/outpatient Visit, Est Advance Directives Directive Yes / No Effective Date File Name No Information Encounters Encounter Description Practice Location Reason(s) For Visit Diagnoses Date Provider Providers Copied on Encounter Office/outpat ient Visit, Est [facility], [address] [place] [address] [address], [place], [place], [id number], tel:[phone] [facility] [place] No Information Sep-1 5-201 0 Santos OD Karthik. [address] [place], [place] [address]ate Center , [address], [place], [address], [place]. tel:[phone] [facility], [address] [place] [address] [address], [place], [place], [id number], tel:[phone] SEC [facility] No Information Jaguar-1 8-201 0 Santos OD Karthik. [address] [place] [address] Maryjo Monique, [address], [place], [place], [facility], [place]. tel:[phone] Referring Provider: Karthik Santos OD A, [address] [place], [place] [address]ate Maryjo Monique [address], [place], [place], [facility]. tel:[phone] Office/outpat ient Visit, [facility], [address] [place] [address] [address], [place], [place], [address], [place] tel:[phone] [facility] No Information May-2 5-201 0 Santos OD Karthik. [address] [place], [place] [address]ate Maryjo Monique, [address], [place], [address], [place]. tel:[phone] Office/outpat ient Visit, [facility], [address] [place] [address] [address], [place], [place], [address], [place] tel:[phone] [facility] No Information May-0 4-201 0 Santos OD Karthik. [facility] Maryjo Monique, [address], [place], [address], [place]. tel:[phone] [facility], [address] [place] [address] [address], [place], [place], [address], [place] tel:[phone] [facility] [place] No Information Apr-2 3-201 0 Santos OD Karthik. [address] [place], [place] [address]ate Center , [address], [place], [facility], [place]. tel:[phone] Referring Provider: Karthik Santos OD A, [address] [place], [place] [address]ate Center [address], [place], [facility]. tel:[phone] [facility], [address] [place] [address] [address], [place], [place], [address], [place] tel:[phone] [facility] [place] No Information Mar-2 3-201 0 Santos OD Karthik. [address] [place] [address] Center , [address], [place], [facility], [place]. tel:[phone] [facility], [address] [place] [address] [address], [place], [place], [address], [place] tel:[phone] [facility] No Information Mar-0 9-201 0 Santos OD Karthik. [address] [place] [address] Maryjo Monique, [address], [place], [facility], [place]. tel:[phone] [facility], [address] [place] [address] [address], [place], [place], [address], [place] tel:[phone] [facility] No Information Mar-0 2-201 0 Alexx Rivas. [address] [place], [place] [address]ate Center , [address], [place], [facility], [place]. tel:[phone] Referring Provider: Rob Bertrand, [address] [place], [place] [address]ate Center [address], [place], [facility]. tel:[phone] Office/outpat ient Visit, Est [facility], [address] [place] [address] [address], [place], [place], [address], [place] tel:[phone] SEC [place] [place] [facility] No Information 1-201 0 Alexx Rivas. [address] , [address], [place], [address], [place]. tel:[phone] [facility], [address], [place], [place], [address], [place] tel:[phone] SEC [facility] No Information 0 5-200 9 Doialonzo Rivas. [address] , [address], [place], [facility], [place]. tel:[phone] [facility], [address] [place] [address] [address], [place], [place], [address], [place] tel:[phone] [facility] No Information 2200 9 Doialonzo Rivas. [address] , [address], [place], [facility], [place]. tel:[phone] [facility], [address] [place] [address] [address], [place], [place], [address], [place] tel:[phone] [facility] No Information 1200 9 Doialonzo Edemely. [address] , [address], [place], [facility], [place]. tel:[phone] [facility], [address], [place], [place], [address], [place] tel:[phone] [facility] No Information 2200 9 Doialonzo Rivas. [address] , [address], [place], [facility], [place]. tel:[phone] Referring Provider: Rob Bertrand, [address], [place], [facility]. tel:[phone] [facility], [address], [place], [place], [address], [place] tel:[phone] [facility] No Information Jaguar-1 6-200 9 Doisy Edward. [address] , [address], [place], [address], [place]. tel:[phone] Office/outpat ient Visit, Est [facility], [address], [place], [place], [address], [place] tel:[phone] [facility] No Information Jaguar-0 1-200 9 Doisy Edward. [address] , [address], [place], [facility], [place]. tel:[phone] [facility], [address] [place] [address] [address], [place], [place], [address], [place] tel:[phone] [facility] No Information May-0 2-200 8 Doisy Edward. [address] [facility] , [address], [place], [facility], [place]. tel:[phone] [facility], [address], [place], [place], [address], [place] tel:[phone] [facility] No Information Apr-2 3-200 8 Doisy Edemely. [facility] , [address], [place], [facility], [place]. tel:[phone] [facility], [address], [place], [place], [address], [place] tel:[phone] [facility] No Information Apr-2 2-200 8 Doisy Edward. [address] [facility] , [address], [place], [facility], [place]. tel:[phone] Office/outpat ient Visit, [facility], [address], [place], [place], [address], [place] tel:[phone] [facility] No Information Mar-3 1-200 8 Doisy Edemely. [address] [facility] , [address], [place], [address], [place]. tel:[phone] Referring Provider: Karthik Santos OD Jerzy, [address] [facility] [address], [place], [address]. tel:[phone] Office/outpat ient Visit, [facility], [address] [place] [address] [address], [place], [place], [address], [place] tel:[phone] [facility] No Information Mar-1 2-200 8 Santos OD Karthik. [address] [facility] , [address], [place], [address], [place]. tel:[phone] Office/outpat ient Visit, [facility], [address], [place], [place], [address], [place] tel:[phone] [facility] No Information Nov-2 0-200 7 Wankum Donato. [address], [place], [place], [address], [place]. tel:[phone] Office/outpat ient Visit, [facility], [address], [place], [place], [address], [place] tel:[phone] [facility] No Information Oct-2 3-200 7 Wankum Donato. [address], [place], [place], [address], [place]. tel:[phone] Office/outpat ient Visit, [facility], [address] [place] [address] [address], [place], [place], [address], [place] tel:[phone] [facility] [place] No Information Sep-2 5-200 7 Wankum Donato. [address], [address], [place], [place], [address], [place]. tel:[phone] Office/outpat ient Visit, [facility], [address] [facility] [place], [facility] [address], [place], [place], [address], tel:[phone] [facility] No Information 8-200 7 Enrike Sewell. [address] [facility], [facility] [place], [address], [place]. tel:[phone] Referring Provider: Donato Bertrand, [address] [facility] [place], [address] . tel:[phone] [facility], [address] [facility] [place], [facility] [address], [place], [place], [address], tel:[phone] [facility] No Information 5200 7 Enrike Sewell. [address] [facility], [facility] [place], [address], [place]. tel:[phone] Referring Provider: Donato Bertrand, [address] [facility] [address], [place], [address] . tel:[phone] Office/outpat ient Visit, [facility], [address] [facility], [place], [facility] [address], [place], [place], [address], [place] tel:[phone] [facility] No Information 200 7 Enrike Sewell. [address] [facility], [facility] [place], [place], [address], [place]. tel:[phone] Family History Family Member Type Diagnosis Age At Onset No Information Payers Payer name Insurance type Covered green party ID Marya shayyyosef(s) [place] [id number] Social History Type Description Quantity Date Captured Comments Sex Female Smoking Status No Information Chief Complaint And Reason For Visit No Information Reason For Referral Reason For Referral No Information History Of Present Illness Encounter Date Complaint History Of Prese nt Illness No Information Functional Status Date Functional Assessmen t No Information Instructions Date Instruction Additional Infor mation No Information Assessments Type Assessment Date No Information Patient Care Teams Name Effective Dates (start - stop) Status Members No Information
--- NOTE | ~2025-05-30 | XR_ITS ---
Examination: XR chest 1V Clinical History: AMS Comparison: CT chest abdomen pelvis 12/26/2004 Technique: Portable AP Findings: Heart size normal. Lungs clear. No acute bony abnormality. Chronic right rib fractures. IMPRESSION: 1. No acute cardiopulmonary findings given portable technique. Reviewed, dictated and finalized at location R.
--- NOTE | ~2025-05-30 | CT_ITS ---
CT brain wo con HISTORY:AMS COMPARISON: None. TECHNIQUE: Axial images were obtained of the head without intravenous contrast. FINDINGS: No acute intracranial hemorrhage, mass effect or midline shift. No extra-axial fluid collections. There is chronic white matter microangiopathic changes within the periventricular white matter.The calvarium is intact. Visualized paranasal sinuses and mastoid air cells are clear. IMPRESSION: No acute intracranial hemorrhage or extra axial fluid collections. Chronic white matter microangiopathic changes. All CT scans at this facility are performed using low dose modulation techniques as appropriate to perform exam including the following: automated exposure control; use of iterative reconstruction technique; adjustment of the mA and/or kV according to patient size (this includes techniques or standardized protocols for targeted exams where dose is matched to indication/reason for exam). Reviewed, dictated and finalized at location S. IMPRESSION: No acute intracranial hemorrhage or extra axial fluid collections. Chronic white matter microangiopathic changes. All CT scans at this facility are performed using low dose modulation techniqu es as appropriate to perform exam including the following: automated exposure c ontrol; use of iterative reconstruction technique; adjustment of the mA and/or kV according to patient size (this includes techniques or standardized protocol s for targeted exams where dose is matched to indication/reason for exam).
--- OUTSIDE RECORDS SUMMARY | 2025-05-30 22:35 | XMS_ITS | Clinical Summary ---
Author Organization [place] [id number] [facility] Address [address] [place] [address] Care Team Providers Care Stock Holder Name Role Phone Bart Bettencourt MD Primary Care Provider Brea Sorensen MD, Marino P. Unavailable [phone] Allergies Active Allergy Reactions Criticality Noted Date Comments Tissue Adhesive Blisters High 07/05/2022 Surgical glue Medications timolol (TIMOPTIC) 0.5 % ophthalmic solution Apply topically 07/31/18 70 Active latanoprost (XALATAN) 0.005 % ophthalmic solution Administer 1 drop into both eyes every evening 11/02/19 22 Active dorzolamide (TRUSOPT) 2 % ophthalmic solution 10/10/19 22 Active acetaminophen (TYLENOL) 500 mg tablet 12/30/19 22 Active hydrOXYzine (ATARAX) 25 mg tabletIndications:an xiety Take 1 tablet (25 mg total) by mouth every 8 (eight) hours as needed for anxiety (insomnia) 90 tablet 11/10/19 23 Active calcium carb and citrate-vitD3 600 mg-12.5 mcg (500 unit) tablet extended releaseIndications:O steoporosis Take 1 tablet by mouth 2 (two) times a day 60 tablet 11 12/09/19 23 Active cholecalciferol (VITAMIN D-3) 5,000 unit capsuleIndications:O steoporosis, post-menopausal TAKE (1) CAPSULE BY MOUTH DAILY WITH FOOD 28 capsule 11/27/19 24 Active brimonidine (ALPHAGAN) 0.2 % ophthalmic solution Administer 1 drop into both eyes 3 (three) times a day 02/12/20 24 Active losartan (COZAAR) 25 mg tabletIndications:Hy pertension, essential TAKE (1) TABLET BY MOUTH DAILY. 30 tablet 06/12/20 24 Active FeroSuL 325 mg (65 mg iron) tablet TAKE (1) TABLET BY MOUTH ONCE DAILY WITH BREAKFAST 30 tablet 08/30/19 25 Active nystatin cream Apply topically as needed (twice a day as needed.) 30 g 09/02/19 25 Active alendronate (FOSAMAX) 35 mg tabletIndications:Os teoporosis, post-menopausal TAKE (1) TABLET BY MOUTH EVERY WEEK *GIVE ON EMPTY STOMACH W/8OZ WATER-DO NOT LIE DOWN UNTIL AFTER 1ST FOOD OF THE DAYDO NOT CRUSH* 4 tablet 09/10/19 25 Active atorvastatin (LIPITOR) 20 mg tablet TAKE (1) TABLET BY MOUTH DAILY. 30 tablet 09/10/19 25 Active omeprazole (PriLOSEC) 20 mg capsule TAKE (1) CAPSULE BY MOUTH DAILY BEFORE BREAKFAST. 28 capsule 12/05/19 25 Active blood glucose diagnostic (glucose blood) stripIndications:Hyp ertension associated with diabetes (HCC) For blood glucose monitoring 100 each 01/01/20 25 026 Active escitalopram (LEXAPRO) 10 mg tabletIndications:Mo derate episode of recurrent major depressive disorder (HCC) Take 1 tablet (10 mg total) by mouth daily 28 tablet 01/04/20 25 Active fenofibrate nanocrystallized (TRICOR) 48 mg tabletIndications:Mi xed hyperlipidemia Take 1 tablet (48 mg total) by mouth daily 28 tablet 01/04/20 25 Active EvenCare G2 misc 02/27/20 25 Active metFORMIN XR (GLUCOPHAGE XR) 500 mg 24 hr tabletIndications:Hy pertension associated with diabetes (HCC) TAKE (1) TABLET BY MOUTH ONCE DAILY WITH BREAKFAST 30 tablet 04/07/20 25 Active celecoxib (CeleBREX) 200 mg capsule Take 1 capsule (200 mg total) by mouth daily 90 capsule 1 04/30/20 25 Active Easy Touch Safety Lancets 28 gauge misc Use to check blood sugar daily 100 each 05/19/20 25 Active nystatin-triamcinolo ne creamIndications:cut aneous candidiasis Apply to affect area twice a day for 7-14 days then as needed for rash. 30 g 1 05/27/20 25 025 Active Easy Touch Safety Lancets 28 gauge misc 02/27/20 25 025 Discontin ued(Reord er) Active Problems Problem Noted Date Diagnosed Date Class 1 obesity due to exces s calories with serious comorbidity and body mass index (BMI) of 33.0 to 33.9 in adult 09/10/2024 Assessment & Plan (09/10/2024 10:19 AM CLINICAL INFORMATICS EDUCATOR): BMI Follow-up includes: nutrition counseling, exercise counseling, and education provided. Vulvar itching 09/02/2024 Assessment & Plan (09/02/2024 10:22 AM CLINICAL INFORMATICS EDUCATOR): Will treat with nystatin and powder Moderate episode of recurrent major depressive d isorder 09/12/2023 Age-related osteoporosis wit hout current pathological fracture 08/28/2023 Overview (11/12/2024): 2022- -2.7 started fosomax 2024= -2.7 Assessment & Plan (09/02/2024 10:23 AM CLINICAL INFORMATICS EDUCATOR): To bmd To continue fosamax for now Assessment & Plan (11/27/2023 11:20 AM CDT): To continue on the Fosamax How to take was reviewed Will plan to repeat her BMD in 2024 Assessment & Plan (08/28/2023 9:44 AM CLINICAL INFORMATICS EDUCATOR): Doing well on fosamax Will check bones next year Abnormal mammogram of both breasts 08/28/2023 Overview (11/27/2023): 08/2022- bilateral calcifications 2023- Assessment & Plan (11/27/2023 11:20 AM CDT): We discussed that as her last mammogram was negative, she has and she has no current tenderness or palpable masses, I do not think her insurance will cover another mammogram this year. She and her varnish mixer would like to do her next screening mammogram at [facility]. She was asked to call if she develops any interval issues Assessment & Plan (08/28/2023 10:00 AM CLINICAL INFORMATICS EDUCATOR): Will arrange for her to have repeat giovani. Will also ask them to look at the tender area on the right breast at 9 oclock Recurrent major depression 10/06/2022 Assessment & Plan (03/07/2023 4:16 PM CDT): Stable on the Lexapro and Hydroxyzine. No changes today. Well woman exam 08/22/2022 Overview (09/02/2024): Lab: Pap:all normal that she remembers- [address] Bettencourt Giovani:due Colonoscopy:06/2022 due 2031 BMD: -2.7. she is supposed to be on fosamax. Will repeat this year Gardasil: Assessment & Plan (09/02/2024 10:25 AM CLINICAL INFORMATICS EDUCATOR): I did not do a pap as couldn't get up there Otherwise complete exam done. Assessment & Plan (11/27/2023 10:16 AM CDT): Due in Jul 2024 Assessment & Plan (08/28/2023 10:01 AM CLINICAL INFORMATICS EDUCATOR): Complete exam done Encounter for screening for malignant neoplasm o f colon 06/14/2022 Overview (06/14/2022): Added automatically from request for surgery [id number] Hypertension associated with diabetes 01/05/2022 Assessment & Plan (03/07/2023 4:17 PM CDT): BP stable in office today, continuing the Losartan 25 mg. Renal function stable for baseline, encouraged more water intake and less soda intake. Mixed hyperlipidemia 11/13/2021 Assessment & Plan (03/07/2023 4:16 PM CDT): Triglycerides much improved since starting the Fenofibrate. Discussed decreasing soda intake and increasing water intake. Assessment & Plan (11/13/2021 10:04 AM CDT): Lab work today Noted this time will continue with atorvastatin 10 mg 1 daily Request foot wound, watch her diet making sure that it is slower and fat but balance and adequate fluid. Note due to knees is unable to really exercise. Talked about doing chair aerobics. Arthritis of both knees 11/13/2021 Assessment & Plan (11/13/2021 10:13 AM CDT): Does have bad arthritis in both knees. Has seen Ortho in regards to her knee noting she is awaiting time for a knee replacement bilaterally. Noted this time does take Advil or Motrin 600 mg every 8 hours as needed for the pain Does continue to walk arm is pretty sure in her feet no shuffling is note no assist devices note Note gait is slow but steady area Gastroesophageal reflux disease without esophagi tis 11/13/2021 Assessment & Plan (11/13/2021 10:05 AM CDT): Will continue with Prilosec 20 mg 1 daily for GERD. Talked with him regarding diet and foods that aggravate her stomach. Making sure she is taking her medication appropriately. Lab work today. Flexural atopic dermatitis 11/13/2021 Assessment & Plan (11/13/2021 10:19 AM CDT): Noted this time this is in the topic dermatitis. No other areas noted to be involved. Will use some triamcinolone cream ..0.1% apply thin coat 2 times a day for 7 days. Try to get her a mild soap such as oil of Olay, dove, tone, If resolves find if not needs to be looked at again. Degenerative joint disease 06/01/2021 Resolved Problems Problem Noted Date Diagnosed Date Resolved Date Dermatitis 11/10/2021 11/13/2021 Encounters Date Type Department Care Team Description 05/28/2025 Results Follow-Up [facility] Medical [facility] at [address] [address] Cesilia Billy NP Vaginitis panel Vaginal, Urine culture Urine, clean voided 05/27/2025 5:38 PM CDT - 05/27/2025 11:59 PM CDT Hospital Encounter [address] [address] Vaginal itching; Urinary urgency Discharge Disposition: Discharge to home or self care 05/27/2025 5:00 PM CDT Office Visit [facility] at [address] [address] Cesilia Billy NP Urinary urgency (Primary Dx); Vaginal itching; Weight loss, unintentional 03/04/2025 10:50 AM CDT Lab [address] [address] Hypertension associated with diabetes (HCC) 03/04/2025 10:15 AM CDT Office Visit [facility] at [address] [phone] Bart Bettencourt MD Hypertension associated with diabetes (HCC) (Primary Dx); Mixed hyperlipidemia from Last 3 Months Immunizations Immunization Administration Dates Next Due Influenza, Quadrivalent, Marielos l Culture-based MDCK, Antibiotic Free, Intramuscular 06/20/2019 Influenza, Quadrivalent, Marielos l Culture-based MDCK, Preservative Free, Antibiotic Free, Intramuscular 05/05/2023 Influenza, Quadrivalent, Spl it, Intramuscular 06/13/2017,08/10/2015 Influenza, Trivalent, Cell Culture-based MDCK, Preservative Free, Antibiotic Free, Intramuscular 08/07/2024 Influenza, Trivalent, IM (MDV) 06/08/2012 Influenza, Trivalent, Preser vative Free, Intramuscular 08/04/2014 Influenza, Unspecified 03/07/2023(Deferr ed: Patient Refused),08/22/2022(Deferred: Patient Refused),07/31/2021,07/31/2020 Pneumococcal Conjugate Pcv20 08/07/2024 Tdap 03/07/2023 ZOSTER Recombinant 08/01/2024,01/09/2024 Surgical History Surgery Date Site/Laterality Comments REPLACEMENT TOTAL KNEE 05/31/2022 - 06/29/2022 Left COLONOSCOPY 07/05/2022 REPLACEMENT TOTAL KNEE 12/29/2021 - 01/27/2022 CATARACT EXTRACTION, BILATERAL Medical History Medical History Date Comments Mixed hyperlipidemia 11/13/2021 Hypertension, essential 01/05/2022 Gastroesophageal reflux disease without esophagi tis 11/13/2021 Degenerative joint disease 06/01/2021 Flexural atopic dermatitis 11/13/2021 Benign breast lumps Developmental delay Osteoporosis Social History Tobacco Use Types Packs/Day Years Used Date Smoking Tobacco: Never Passive Smoke Exposure: Never Smokeless Tobacco: Never Tobacco Cessation:Counseling Given: Not Answered Humiliation, Afraid, Rape, and Kick questionnair e Answer Date Recorded Within the last year, have y ou been afraid of your partner or ex-partner? No 09/02/2024 Within the last year, have y ou been humiliated or emotionally abused in other ways by your partner or ex-partner? No Within the last year, have y ou been kicked, hit, slapped, or otherwise physically hurt by your partner or ex-partner? No 09/02/2024 Within the last year, have y ou been raped or forced to have any kind of sexual activity by your partner or ex-partner? No 09/02/2024 AUDIT-C Answer Date Recorded Q1: How often do you have a drink containing alcohol? Never 06/14/2023 Q2: How many drinks containi ng alcohol do you have on a typical day when you are drinking? Patient does not drink Q3: How often do you have si x or more drinks on one occasion? Never 06/14/2023 PHQ-2 Answer Date Recorded PHQ-2 Total Score (If total score is 3 or more points, staff should administer the PHQ-9) 6 03/04/2025 PHQ-9 Answer Date Recorded PHQ-9 Total Score 10 03/04/2025 Comments No Sex and Gender Information Value Date Recorded Sex Assigned at Not on file Legal Sex Female 11:42 AM CLINICAL INFORMATICS EDUCATOR Gender Identity Not on file Sexual Orientation Not on file Obstetrics History Para Term AB IAB SAB Ectopic Multiple Livin g Live Births 2 2 2 Date Outcome GA Total Labor Labor/2nd/3rd Weight Sex Type Anes PTL Ilene A1 A5 Name Clin Term Term Last Filed Vital Signs Vital Sign Reading Time Taken Comments Blood Pressure 134/74 05/27/2025 4:59 PM CDT Pulse 61 05/27/2025 4:59 PM CDT Temperature 36.3 C (97.4 F) 05/27/2025 4:59 PM CDT Respiratory Rate 20 05/27/2025 4:59 PM CDT Oxygen Saturation 99% 05/27/2025 4:59 PM CDT Inhaled Oxygen Concentration - - Weight 72.6 kg (160 lb) 05/27/2025 4:59 PM CDT Height 152.4 cm (5') 03/04/2025 10:08 AM CDT Body Mass Index 31.25 03/04/2025 10:08 AM CDT Plan of Treatment Health Maintenance Due Date Last Done Comments Covid-19 Vaccine (2023-2 5 season) 2025 08/07/2024, 05/05/2023, 06/30/2021, Additional history exists Influenza Vaccine (#1) 2025 , 05/05/2023, 07/31/2021, Additional history exists Cervical Cancer Screening 09/02/2025 08/28/2023, Hemoglobin A1C 09/04/2025 03/04/2025, 11/28, 09/10/2024, Additional history exists Breast Cancer Screening-Mammogram 10/28/2025 10/28/2024, 09/23/2022, 09/23/2022 Albumin Creatinine Ratio, Urine 12/10/2025 Fall Risk Assessment 12/10/2025 12/10/2024, 09/10/2024, 09/12/2023, Additional history exists Foot Exam 12/10/2025 12/10/2024, 12/10/2024 Well Visit 65+ 12/10/2025 12/10/2024, 08/28/2023 Depression Screening 03/04/2026 03/04/2025, 03/04/2025, 12/10/2024, Additional history exists Lipid Panel 03/04/2026 03/04/2025, 08/31, 03/12/2024, Additional history exists eGFR 03/04/2026 03/04/2025, 08/31, 03/12/2024, Additional history exists Osteoporosis Screening-Bone Density Scan 10/28/2026 10/28/2024, 09/22/2022 Colon Cancer Screening-Colonoscopy 07/05/2032 07/05/2022, 07/05/2022 DTaP/Tdap/Td Vaccine (2 - Td or Tdap) 03/07/2033 03/07/2023 Hepatitis C Screening Completed 01/05/2022 Zoster Vaccine Completed 08/01/2024, 01/09/2024 Pneumococcal vaccine 65+ Completed 08/07/2024 Hepatitis B Screening Completed 12/10/2024 Dilated Eye Exam Discontinued Procedures Procedure Name Priority Date/Time Associated Diagnosis Comments URINE CULTURE Routine 05/27/2025 5:38 PM CDT Urinary urgency VAGINITIS PANEL Routine 05/27/2025 5:38 PM CDT Vaginal itching POCT URINALYSIS DIPSTICK Routine 05/27/2025 5:09 PM CDT Urinary urgency EGFR Routine 03/04/2025 10:54 AM CDT Hypertension associated with diabetes (HCC) DIFFERENTIAL AUTO Routine 03/04/2025 10: 54 AM CDT Hypertension associated with diabetes (HCC) LIPID PANEL Routine 03/04/2025 10:54 AM CDT Hypertension associated with diabetes (HCC) CBC WITH AUTO DIFFERENTIAL Routine 03/04/2025 10:54 AM CDT Hypertension associated with diabetes (HCC) COMPREHENSIVE METABOLIC PANEL Routine 03/04/2025 10:54 AM CDT Hypertension associated with diabetes (HCC) HEMOGLOBIN A1C Routine 03/04/2025 10:54 AM CDT Hypertension associated with diabetes (HCC) ALBUMIN CREATININE RATIO, URINE Routine 12/10/2024 9:54 AM CDT Hypertension associated with diabetes (HCC) SCREENING MAMMOGRAM BILATERAL W KENNY Schedule Routine, Read Routine (OP Routine) 10/28/2024 1:30 PM CDT Well woman exam Screening mammogram for breast cancer DEXA AXIAL SKELETON BONE DENSITY 1 OR MORE SITES Schedule Routine, Read Routine (OP Routine) 10/28/2024 1:24 PM CDT Age-related osteoporosis without current pathological fracture PAP AND HIGH RISK HPV, REFLEX TO GENOTYPING Routine 08/22/2022 10:30 AM CLINICAL INFORMATICS EDUCATOR Well woman exam COLONOSCOPY 07/05/2022 10:04 AM CLINICAL INFORMATICS EDUCATOR HEPATITIS C ANTIBODY Routine 01/05/2022 3:40 PM CDT Encounter for hepatitis C screening test for low risk patient from Last 3 Months or Most Recently Relevant to Health Maintenance Results * Vaginitis panel Vaginal (05/27/2025 5:38 PM CDT) Bacterial Vaginosis Not Detected Not Detected Comment:A negative result do es not preclude a possible infection. Results should be considered in conjunction with clinical presentation to determine the disease status. Anahy group Not Detected Not Detected [facility] Anahy glabrata/ krusei Not Detected Not Detected [facility] Trichomonas DNA Not Detected Not Detected [facility] Vaginal 05/27/2025 5:38 PM CDT 05/27/2025 8:07 PM CDT Narrative [facility] - 05/27/2025 9:26 PM CDT The CepARTtwo50id Xpert Xpress MVP test detects DNA targets from anaerobic bacteria associated with bacterial vaginosis, Anahy species associated with vulvovaginal candidiasis, and Trichomonas vaginalis by nucleic acid amplification testing (NAAT). Results should be interpreted in conjunction with other clinical data. This test cannot be used to assess therapeutic success or failure because target nucleic acids may persist following antimicrobial therapy. This test has been cleared by the [place] Food and Drug Administration to aid in the diagnosis of vaginal infections in symptomatic women ages 14 and older. The performance characteristics of this test have been verified by the [facility]. Cesilia Billy NP LAB MICROBIOLOGY - GENERAL ORDE RABLES Final Result [facility] [address] Department [place] [address] [place] * Urine culture Urine, clean voided (05/27/2025 5:38 PM CDT) Report Final Report: Less than 100,000 colonies/mL (clinically insignificant growth based on current clinical standards) Comment:Testing performed by : [facility], [address] [place]., [address] Organism (CLINICALLY INSIGNIFICANT GROWTH CYNDI Urine, clean voided 05/27/2025 5:38 PM CDT 05/27/2025 10:14 PM CDT Narrative [facility] - 05/29/2025 8:59 AM CDT Testing performed by [facility] ([phone]) Cesilia Billy NP LAB MICROBIOLOGY - [facility]AL ORDE [facility] Final Result Performing Organization Address City/[facility]/ZIP Co de Phone Number [facility] [address] [address] Department [place] [address] * POCT urinalysis dipstick (05/27/2025 5:09 PM CDT) Color, Urine, POC Dark Yellow Clarity, ur, POC Clear Clear Glucose, ur, POC Negative Negative Bilirubin, ur, POC Negative Negative Ketones, ur, POC Negative Negative Specific Accident, POC 1.020 1.003 - 1.030 Blood, ur, POC Negative Negative pH, ur, POC 5.5 5.0 - 8.0 Protein, ur, POC Negative Negative Urobilinogen, urine, POC 1.0 0.2 - 1.0 mg/dL Nitrite, ur, POC Negative Negative Leukocytes, ur, POC Negative Negative Lot Number [id number] Urine 05/27/2025 5:09 PM CDT Ranita Billy PNEUDRAULIC SYSTEMS MECHANIC POINT OF CARE TEST ORDERABLES F inal Result * eGFR (03/04/2025 10:54 AM CDT) Pathologist [facility] eGFR 62 >=60 mL/min/1. 73 m2 Comment: Interpretive Data Reference Interval Normal >/= 90 mL/min/1.73m2 Mildly decreased* 60 - 89 mL/min/1.73m2 Mildly to moderately decreased 45 - 59 mL/min/1.73m2 Moderately to severely decreased 30 - 44 mL/min/1.73m2 Severely decreased 15 - 29 mL/min/1.73m2 Kidney Failure < 15 mL/min/1.73m2 *Relative to young adult level Estimated glomerular filtration rate is determined by the 2020 CKD-EPI equation recommended by the National Kidney Foundation (A Unifying Approach to GFR Estimation: Recommendations of the NKF-ASK Task Force on Reassessing the Inclusion of Race in Diagnosing Kidney Disease, JASN 2020). The CKD-EPI equation should not be used for patients with unstable renal function and has not been validated in children and those over 70. Current interpretive data was last reviewed 2021. Blood 03/04/2025 10:5 4 AM CDT 03/04/2025 1:53 PM CDT us Bart Bettencourt MD LAB BLOOD ORDERABLES Final Result [facility] [address] [facility] [place] [address] * Differential, auto (03/04/2025 10:54 AM CDT) Pathologist [facility] Neutrophil abs 5.85 1.50 - 6.50 K/cumm Imm gran abs 0.04 0.00 - 0.10 K/cumm [facility] Lymphocyte abs 2.10 0.80 - 3.30 K/cumm [facility] Monocyte abs 0.78 0.20 - 0.80 K/cumm [facility] Eosinophil abs 0.10 0.00 - 0.50 K/cumm [facility] Basophil abs 0.06 0.00 - 0.10 K/cumm [facility] Neutrophil pct 65.6 % [facility] Comment: Interpretive Data Percent cell count reference ranges are not reported, since discordance with absolute values may lead to misinterpretation of CBC data. Current Interpretive Data was last revised on 2017. Imm gran pct 0.4 % [facility] Comment: Interpretive Data Percent cell count reference ranges are not reported, since discordance with absolute values may lead to misinterpretation of CBC data. Current Interpretive Data was last revised on 2017. Lymphocyte pct 23.5 % [facility] Comment: Interpretive Data Percent cell count reference ranges are not reported, since discordance with absolute values may lead to misinterpretation of CBC data. Current Interpretive Data was last revised on 2017. Monocyte pct 8.7 % [facility] Comment: Interpretive Data Percent cell count reference ranges are not reported, since discordance with absolute values may lead to misinterpretation of CBC data. Current Interpretive Data was last revised on 2017. Eosinophil pct 1.1 % [facility] Comment: Interpretive Data Percent cell count reference ranges are not reported, since discordance with absolute values may lead to misinterpretation of CBC data. Current Interpretive Data was last revised on 2017. Basophil pct 0.7 % [facility] Comment: Interpretive Data Percent cell count reference ranges are not reported, since discordance with absolute values may lead to misinterpretation of CBC data. Current Interpretive Data was last revised on 2017. Blood 03/04/2025 10:5 4 AM CDT 03/04/2025 1:53 PM CDT Bart Bettencourt MD LAB BLOOD ORDERABLES Final Result [facility] [address] [facility] [place] [address] * (ABNORMAL) CBC with auto differential (03/04/2025 10:54 AM CDT) WBC 8.93 3.80 - 9.90 K/cumm Hgb 12.6 11.9 - 15.5 g/dL [facility] Hct 39.3 35.6 - 45.5 % [facility] Plt 337 150 - 400 K/cumm [facility] MPV 10.4 9.1 - 12.3 fL [facility] RBC 4.20 3.90 - 5.20 M/cumm [facility] MCV 93.6 81.3 - 96.4 fL [facility] MCH 30.0 27.1 - 33.3 pg [facility] MCHC 32.1(L) 32.3 - 35.7 g/dL [facility] RDW CV 12.5 11.1 - 14.9 % [facility] RDW SD 42.5 35.7 - 48.1 fL [facility] NRBC abs 0.00 0.00 - 0.01 K/cumm [facility] Blood 03/04/2025 10:5 4 AM CDT 03/04/2025 1:53 PM CDT Bart Bettencourt MD LAB BLOOD ORDERABLES Final Result Performing Organization Address [facility] Phone Number [address] [place] [address] * (ABNORMAL) Hemoglobin A1c (03/04/2025 10:54 AM CDT) Hgb A1C 6.4(H) 4.0 - 5.6 % Estimated Average Glucose 137 mg/dL [facility] Comment: The ADA recommends reporting an estimated Average Glucose (eAG) with all Hemoglobin A1c results using the equation derived from a study of 507 normal and diabetic adults. Minority populations were underrepresented and children were not included. (Diabetes Care 31:7077-8183, 2008). The eAG is not equivalent to a fasting glucose. Blood 03/04/2025 10:5 4 AM CDT 03/04/2025 1:53 PM CDT Bart Bettencourt MD LAB BLOOD ORDERABLES Final Result Performing Organization Address [facility] Co de Phone Number [address] [place] [address] * (ABNORMAL) Lipid panel (03/04/2025 10:54 AM CDT) Cholesterol 155 30 - 199 mg/dL Comment: Interpretive Data Ages < or = 19 years Acceptable: <170 mg/dL Borderline high: 170-199 mg/dL High: >or= 200 mg/dL Ages > or = 20 years Desirable: <200 mg/dL Borderline high: 200-239 mg/dL High: >or= 240 mg/dL Literature References: 1. Expert Panel on Integrated Guidelines for Cardiovascular Health and Risk Reduction in Children and Adolescents. Pediatrics 2011;128:S213 2. NCEP Expert Panel. Circulation 2004;110:227 Current Interpretive Data was last revised on 2018. Triglycerides 205(H) <=149 mg/dL [facility] Comment: Interpretive Data Ages < or = 9 years Acceptable: <75 mg/dL Borderline high: 75-99 mg/dL High: >or= 100 mg/dL Ages 10 to 20 years Acceptable: <90 mg/dL Borderline high: 90-129 mg/dL High: >or= 130 mg/dL Ages > or = 20 years Desirable: <150 mg/dL Borderline high: 150-199 mg/dL High: 200-499 mg/dL Very high: >or= 499 mg/dL Literature References: 1. Expert Panel on Integrated Guidelines for Cardiovascular Health and Risk Reduction in Children and Adolescents. Pediatrics 2011;128:S213 2. NCEP Expert Panel. Circulation 2004;110:227 Current Interpretive Data was last revised on 2018. HDL 32(L) >=40 mg/dL [facility] Comment: Interpretive Data Ages < or = 19 years Acceptable: >45 mg/dL Borderline low: 40-45 mg/dL Low: <40 mg/dL Ages > or = 20 years Desirable: >or= 60 mg/dL Low: <40 mg/dL Literature References: 1. Expert Panel on Integrated Guidelines for Cardiovascular Health and Risk Reduction in Children and Adolescents. Pediatrics 2011;128:S213 2. NCEP Expert Panel. Circulation 2004;110:227 Current Interpretive Data was last revised on 2018. LDL, calculated 88 <=129 mg/dL [facility] Comment: Interpretive Data Ages < or = 19 years Acceptable: <110 mg/dL Borderline high: 110-129 mg/dL High: >or= 130 mg/dL Ages > or = 20 years Optimal: <100 mg/dL Near optimal: 100-129 mg/dL Borderline high: 130-159 mg/dL High: >160 mg/dL Calculated using the Marshall LDL-C estimating equation. This equation was implemented on 2024. Prior to this date LDL-C was estimated using the Friedewald equation. Literature References: 1. Expert Panel on Integrated Guidelines for Cardiovascular Health and Risk Reduction in Children and Adolescents. Pediatrics 2011;128:S213 2. NCEP Expert Panel. Circulation 2004;110:227 3. Marshall Vivas et al. SHAUN Cardiol. 2019November 28;5(5):540-548. doi: 10.1001/[email or web address] Current Interpretive Data was last revised on 2024. Non-HDL Cholesterol 123 mg/dL [facility] Comment: Interpretive Data Ages < or = 19 years Acceptable: <120 mg/dL Borderline high: 120-144 mg/dL High: >145 mg/dL Ages > or = 20 years When triglycerides are >200 mg/dL, Non-HDL cholesterol is a secondary target of therapy with treatment goals that are 30 mg/dL greater than the LDL cholesterol target. Literature References: 1. Expert Panel on Integrated Guidelines for Cardiovascular Health and Risk Reduction in Children and Adolescents. Pediatrics 2011;128:S213 2. NCEP Expert Panel. Circulation 2004;110:227 Current Interpretive Data was last revised on 2018. Chol/HDL ratio 5 [facility] Blood 03/04/2025 10:5 4 AM CDT 03/04/2025 1:53 PM CDT Bart Bettencorut MD LAB BLOOD ORDERABLES Final Result [facility] [address] [facility] [place] [address] * Comprehensive metabolic panel (03/04/2025 10:54 AM CDT) Sodium 138 135 - 145 mmol/L Potassium, pl 4.0 3.3 - 4.9 mmol/L [facility] Chloride 102 97 - 110 mmol/L [facility] CO2 25 22 - 32 mmol/L [facility] Anion gap 11 2 - 15 mmol/L [facility] BUN 22 6 - 25 mg/dL [facility] Creatinine 1.01 0.60 - 1.10 mg/dL [facility] Glucose 121 70 - 199 mg/dL [facility] Comment: Interpretive Data Fasting glucose >/= 126 mg/dl is diagnostic for diabetes. Fasting is defined as no caloric intake for at least 8 hours. Fasting glucose between 100 mg/dl to 125 mg/dl is diagnostic of prediabetes. In a patient with classic symptoms of hyperglycemia or hyperglycemic crisis, a random glucose >/= 200 mg/dl is diagnostic for diabetes. In the absence of unequivocal hyperglycemia, results should be confirmed by repeat testing. The classification and Diagnosis of Diabetes Diabetes Care 2021; 46: S19-S40. Current interpretive data was last revised 2022. Calcium 9.7 8.5 - 10.3 mg/dL [facility] Bilirubin, total 0.5 0.1 - 1.2 mg/dL [facility] Protein, pl 7.3 6.5 - 8.5 g/dL [facility] Albumin 4.4 3.5 - 5.0 g/dL [facility] Alk phos 74 40 - 130 Units/L [facility] ALT 22 7 - 45 Units/L [facility] AST 31 10 - 45 Units/L [facility] Blood 03/04/2025 10:5 4 AM CDT 03/04/2025 1:53 PM CDT Bart Bettencourt MD LAB BLOOD ORDERABLES Final Result [facility] [address] [facility] [place] [address] * Albumin Creatinine Ratio, Urine (12/10/2024 9:54 AM CDT) Albumin Ur <12.0 mg/L Comment: Interpretive Data No reference range established. Current interpretive data was last revised 2018. Creatinine Ur 49.0 mg/dL [facility] Comment: Interpretive Data No reference range established. Current interpretive data was last revised 2018. Albumin Creatinine Ratio, Ur <24 1 - 29 mg/g [facility] Urine 12/10/2024 9:54 AM CDT 12/10/2024 4:43 PM CDT Narrative [facility] NUÑEZ - 12/10/2024 5:30 PM CDT PLEASE DRAW 12/08 A1C WELL us Bart Bettencourt MD LAB URINE ORDERABLES Final Result [facility] NUÑEZ [address] [facility] [place] Department [place] [address] * Screening Mammogram Bilateral W Kenny (10/28/2024 1:30 PM CDT) Anatomical Region Laterality Modality Breast Bilateral Mammography 10/31/2024 3:47 PM CDT Impressions 10/31/2024 3:47 PM CDT There is no mammographic evidence to suggest malignancy. The patient may continue screening mammography as per ACR guidelines. FINAL ASSESSMENT: BI-RADS Category 2: Benign. Electronically signed by: Nicci Berry M.D. Narrative 10/31/2024 3:47 PM CDT EXAMINATION: BILATERAL SCREENING MAMMOGRAM WITH TOMOGRAPHY HISTORY: Screening. COMPARISON(S): 2023, 2022, and 2019 TECHNIQUE: Full-field 2D images and digital tomosynthesis images were obtained. CAD was utilized. BREAST PARENCHYMAL COMPOSITION: There are scattered areas of fibroglandular density. FINDINGS: There is a biopsy marker in a stable mass on the left. There are no suspicious masses. No suspicious calcifications are seen. There is no unexplained architectural distortion. There is no skin thickening seen. There are no mammographically abnormal lymph nodes seen in the axillae or elsewhere. 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 CLINICAL INFORMATION: Current height: 60 inches Maximum height: 61 inches Weight: 186 pounds Risk factors: Postmenopausal COMPARISON: 09/22/2022 Dissimilar scan types or analysis methods precludes assessment for calculating a significant change. FINDINGS: AP LUMBAR SPINE L1-L4: Total BMD is 1.005 g/cm2 T-score is -0.4 LEFT HIP: Total BMD is 0.694 g/cm2 T-score is -2.0 Femoral neck BMD is 0.552 g/cm2 T-score is -2.7 FRAX: FRAX not reported due to T-scores of hip, femoral neck and/or spine being at or below -2.5 (Osteoporosis). IMPRESSION: Osteoporosis. REFERENCE: Bone mineral density: T-Score: Normal (T-score above or = -1.0) Low bone mass (T-score between -1.0 and -2.5) replaces the previously used term osteopenia Osteoporosis (T-score = or below -2.5) Z-Score: Within the expected range for age (Z-score above -2.0) Below the expected range for age (Z-score is -2.0 or below) Please see below follow up recommendations. Medical evaluation for secondary causes of low bone mineral density may be appropriate. FRAX is a World Health Organization validated fracture risk assessment tool that calculates a person's 10 year probability of a major osteoporosis related fracture and hip fracture. According to the National Osteoporosis Foundation guidelines, postmenopausal women and men age 50 or older with low bone mass and a 10 year probability of a major osteoporosis related fracture = or greater than 20% or a 10 year probability of a hip fracture = or greater than 3% should be considered for pharmacological treatment for the prevention of osteoporosis. For further information, including treatment recommendations, please refer to the 2019 ISCD Official Positions (http://www.iscd.org) and the NOF's Clinician's Guide to Prevention and Treatment of Osteoporosis (http://www.nof.org/professionals/clinical-guidelines) THIS IS AN ELECTRONICALLY VERIFIED FINAL REPORT 10/29/2024 4:50 PM - Electronically signed by Aidan Jones M.D. 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 CLINICAL INFORMATION: Current height: 60 inches Maximum height: 61 inches Weight: 186 pounds Risk factors: Postmenopausal COMPARISON: 09/22/2022 Dissimilar scan types or analysis methods precludes assessment for calculating a significant change. FINDINGS: AP LUMBAR SPINE L1-L4: Total BMD is 1.005 g/cm2 T-score is -0.4 LEFT HIP: Total BMD is 0.694 g/cm2 T-score is -2.0 Femoral neck BMD is 0.552 g/cm2 T-score is -2.7 FRAX: FRAX not reported due to T-scores of hip, femoral neck and/or spine beingat or below -2.5 (Osteoporosis). IMPRESSION: Osteoporosis. REFERENCE: Bone mineral density: T-Score: Normal (T-score above or = -1.0) Low bone mass (T-score between -1.0 and -2.5) replaces thepreviously used term osteopenia Osteoporosis (T-score = or below -2.5) Z-Score: Within the expected range for age (Z-score above -2.0) Below the expected range for age (Z-score is -2.0 or below) Please see below follow up recommendations. Medical evaluation forsecondary causes of low bone mineral density may be appropriate. FRAX is a World Health Organization validated fracture risk assessmenttool that calculates a person's 10 year probability of a major osteoporosisrelated fracture and hip fracture. According to the National OsteoporosisFoundation guidelines, postmenopausal women and men age 50 or older with low bonemass and a 10 year probability of a major osteoporosis related fracture = or greater than 20% or a 10 year probability of a hip fracture = or greaterthan 3% should be considered for pharmacological treatment for the preventionof osteoporosis. For further information, including treatment recommendations, please referto the 2019 ISCD Official Positions (http://www.iscd.org) and the NOF's Clinician's Guide to Prevention and Treatment of Osteoporosis (http://www.nof.org/professionals/clinical-guidelines) THIS IS AN ELECTRONICALLY VERIFIED FINAL REPORT 10/29/2024 4:50 PM - Electronically signed by Aidan Jones M.D. MF: EARLINE Report ID: [id number] Reading Location: [place] [address] Rosa Maria Romero MD IM DXA PROCEDURES Final Result * Pap and High Risk HPV, reflex to Genotyping (08/22/2022 10:30 AM CLINICAL INFORMATICS EDUCATOR) CLINICAL INFORMATION: [facility] Comment:None given LMP [facility] Comment:None given Previous Pap [facility] Comment:None given Prev. Bx [facility] Comment:None given SOURCE: [facility] Comment:Cervix, Endocervix Pap, specimen adequacy [facility] Comment:SATISFACTORY FOR VIKKI LUATION HPV interp [facility] Comment: Negative for intraepithelial lesion or malignancy. Atrophic pattern; predominantly parabasal cells Field Service Manager [facility] Comment: JAF, CT(ASCP) CT Screening Location: [place] [address] [place] [address] Comment [facility] Comment: EXPLANATORY NOTE: The Pap is a screening test for cervical cancer. It is not a diagnostic test and is subject to false negative and false positive results. It is most reliable when a satisfactory sample, regularly obtained, is submitted with relevant clinical findings and history, and when the Pap result is evaluated along with historic and current clinical information. Human papillomavirus DNA, High Risk E6/E7 Not Detected NOT DETECTED [facility] Comment: Not Detected High Risk HPV types (16,18,31,33,35,39,45,51,52, 56,58,59,66,68) were not detected. Other HPV types which cause anogenital lesions may be present. The significance of the other types of HPV in malignant processes has not been established. Methodology: Real Time PCR Thin prep 08/22/2022 10:3 0 AM CLINICAL INFORMATICS EDUCATOR 08/23/2022 5:37 AM CLINICAL INFORMATICS EDUCATOR Rosa Maria Romero MD LAB CYTOLOGY ORDERA BLES Final Result [facility] [address] [place] [id number] [facility]/[place] [address] [place] [address] * COLONOSCOPY (07/05/2022 10:04 AM CLINICAL INFORMATICS EDUCATOR) Anatomical Region Laterality Modality Other Narrative Procedure Note Anthony Pichardo MD - 07/05/2022 10:[address] [facility] Endoscopy [facility] Patient Name: Supriya Lauren Procedure Date: 07/05/2022 10:04 AM Date of : 1960 Admit Type: Outpatient Age: 61 Gender: Female Note Status: Finalized Attending MD: Anthony Pichardo M.D. Procedure Date: 07/05/2022 Procedure: Colonoscopy Indications: Screening for colorectal malignant neoplasm, Thisis the patient's first colonoscopy Providers: Anthony Pichardo M.D., Neda Cohen (AnesthesiaStaff), Venus Michel RN, Lorene Palacios, Appraiser Personal Property Referring MD: Bart Bettencourt M.D. Medicines: Monitored Anesthesia Care Complications: No immediate complications. Estimated Blood Loss: Estimated blood loss: none. Procedure: Pre-Anesthesia Assessment: - Airway Examination: normal oropharyngeal airwayand neck mobility. - Respiratory Examination: clear to auscultation. - ASA Grade Assessment: II - A patient with mild systemic disease. - After reviewing the risks and benefits, thepatient was deemed in satisfactory condition to undergo the procedure. - The risks and benefits of the procedure and the sedation options and risks were discussed with the patient. All questions were answered and informed consent was obtained. After I obtained informed consent, the scope was passed under direct vision. Throughout theprocedure, the patient's blood pressure, pulse, and oxygen saturations were monitored continuously. The scopewas passed under direct vision. The Colonoscope was introduced through the anus and advanced to the the cecum, identified by the appendiceal orifice, ileocecal valve and palpation. The colonoscopy was performed with ease. The patient tolerated the procedure well. The quality of the bowelpreparation was fair. The quality of the bowel preparation was evaluated using the BBPS (Monroe Bowel Preparation Scale) with scores of: Right Colon = 2 (minoramount of residual staining, small fragments of stooland/or opaque liquid, but mucosa seen well), TransverseColon = 2 (minor amount of residual staining, small fragments of stool and/or opaque liquid, but mucosa seen well) and Left Colon = 1 (portion of mucosaseen, but other areas not well seen due to staining, residual stool and/or opaque liquid). The totalBBPS score equals 5. The quality of the bowelpreparation was fair. The bowel preparation used was GoLYTELYvia split dose instruction. Bowel prep was administered using a split dose. Findings: The perianal and digital rectal examinations were normal. Multiple small and large-mouthed diverticula were found in the entire colon. The retroflexed view of the distal rectum and anal verge was normaland showed no anal or rectal abnormalities. Impression: - Preparation of the colon was fair. - Preparation of the colon was fair. - Diverticulosis in the entire examined colon. - The distal rectum and anal verge are normal on retroflexion view. - No specimens collected. Recommendation: - Discharge patient to home (ambulatory). - Repeat colonoscopy in 10 years for screening purposes. Procedure Code(s): --- Professional --- G0121, Colorectal cancer screening; colonoscopy on individual not meeting criteria for high risk Diagnosis Code(s): --- Professional --- Z12.11, Encounter for screening for malignantneoplasm of colon K57.30, Diverticulosis of large intestine without perforation or abscess without bleeding CPT copyright 2020 [employer]. All rights reserved. The codes documented in this report are preliminary and upon outpatient coder reviewmay be revised to meet current compliance requirements. Electronically signed by Anthony Pichardo MD Anthony Pichardo M.D. 07/05/2022 10:24:01 AM Number of Addenda: 0 Note Initiated On: 07/05/2022 10:04 AM Anthony Pichardo MD ENDOSCOPY PROCEDURES Final Resul t * Hepatitis C antibody (01/05/2022 3:40 PM CDT) Hep C Ab Nonreactive Nonreactive [facility] Comment: Interpretive Data Nonreactive: Antibodies to HCV not detected. Does NOT exclude the possibility of recent exposure to HCV. Equivocal: Equivocal for HCV antibodies. Supplemental molecular testing will be automatically performed to determine infection status in accordance with current CDC screening recommendations. Reactive: Positive for HCV antibodies. This may represent current or past HCV infection. Supplemental molecular testing will be automatically performed to determine current infection status in accordance with current CDC screening recommendations. Interpretive data was last revised on 2019. Blood 01/05/2022 3:40 PM CDT 01/05/2022 7:46 PM CDT Bart Bettenocurt MD LAB MICROBIOLOGY - GENERAL ORDERABLES Final Result Performing Organization Address City/State/Research [facility] Phone Number [facility] [id number] [facility] [place] [address] from Last 3 Months or Most Recently Relevant to Health Maintenance Insurance [facility] MEDICARE Care Teams Stock Holder Relationship Specialty Start Date End Date Bart Bettencourt MD [address] [place] [address] PCP - General Family Medicine 01/05/22 Marino Guidry Jr., MD [address] [place] [address] Consulting Physician Cardiovascular Disease 01/05/22
--- OUTSIDE RECORDS SUMMARY | 2025-05-30 22:35 | XMS_ITS | Data Portability ---
Author Organization [facility], Main Office Address [address] [place] [address] Care Team Providers Care Expediter Clerk Name Role Phone SABRINA PLASENCIA Primary Care Provider SABRINA PLASENCIA Referring Provider [phone] Assessment Encounter Date Assessment Date Assessment LastModified by Organization Details LastModified Time 07/03/2023 07/03/2023 HPI: Patient returns. She is here a 1 year follow-up of her staged bilateral total knee arthroplasty. she is doing very well. She still notes that the left knee which was done 2nd feels stiff at times but the right knee feels very normal. She has been active in the last year without having any significant complaints or pains. Physical exam: 62-year-old female alert pleasant. She is walking very well today without assistance or limp. There is no effusion in either knee. Her right knee range of motion is from 2-135 degrees on the left it is 2-125 degrees. On the left she has a little bit of discomfort at full flexion and on the right she has none. She has excellent stability in both flexion and extension in both knees. No increased swelling in either lower extremity. Impression: patient's total knee arthroplasties are doing very well 1 year out. She is lacking a little bit of flexion on the left relative to the right and talked about ways to improve this. I think this is probably why the left feels a little bit stiff because she does not have a flexion that she has on the left as she does the right. Otherwise she is doing very well and very happy with her results. X-rays look excellent. Long-term risk of infection was discussed. We will plan on seeing her back in 5 years for routine x-ray surveillance or sooner if she has problems. 20 minutes was spent in treatment patient more than half of this in [id number] conversation [email or web address] Not available 07/03/2023 15:28:15 Plan of Treatment Reminders Order Date Submit Date Provider Last Modified By Organization Details Last Modified Time Details Appointments None record ed. Lab None record ed. Referral None record ed. Procedures None record ed. Surgeries None record ed. Imaging XR, knee 023 07/03/20 23 [email or web address] [facility] [place], [facility], [place], [address], 3 07:27:40 Medication Orders None record ed. Patient TargetsNo targets recorded. Patient InstructionsNo instructions recorded. Reason for Referral None Reported. Results Created Date Observation Date Name Description Value Unit Range Abnormal Flag Note LastModifiedBy Organization Detail LastModifiedTime 05/26/2005/26/2022 MRSA/ STAPH AUREU S, NASAL , PCR MRSA, nasal positi ve abnormal Not Available [facility] (Lab) [address] [place], [address], 05/26/2022 12:43:10 05/26/20 22 05/26/2022 MRSA/ STAPH AUREU S, NASAL , PCR staph aureus, nasal positi ve abnormal Not Available [facility] (Lab) [address] [place], [address], 05/26/2022 12:43:10 05/26/20 22 05/26/2022 TYPE AND SCREE N patient ABO group and Rh O positi ve Not Available [facility] (Lab) [address] [place], [address], 05/26/2022 11:37:03 05/26/20 22 05/26/2022 TYPE AND SCREE N patient antibody screen negati ve Not Available [facility] (Lab) [address] [place], [address], 05/26/2022 11:37:03 05/26/20 22 05/26/2022 BASIC METAB OLIC PANEL sodium 140 mmol/ L 137-14 5 Not Available [facility] (Lab) [address] [place], [address], 05/26/2022 10:52:42 05/26/2005/26/2022 BASIC METAB OLIC PANEL potassium 3.9 mmol/ L 3.5-5. 1 Not Available [facility] (Lab) [address] [place], [address], 05/26/2022 10:52:42 05/26/2005/26/2022 BASIC METAB OLIC PANEL chloride 108 mmol/ L 98-107 high Not Available [facility] (Lab) [address] [place], [address], 05/26/2022 10:52:42 05/26/2005/26/2022 BASIC METAB OLIC PANEL carbon dioxide 24 mmol/ L 22-30 Not Available [facility] (Lab) [address] [place], [address], 05/26/2022 10:52:42 05/26/20 22 05/26/2022 BASIC METAB OLIC PANEL anion gap 11.9 mmol/ L 14-22 low Not Available [facility] (Lab) [address] [place], [address], 05/26/2022 10:52:42 05/26/2005/26/2022 BASIC METAB OLIC PANEL glucose 114 mg/dL 70-99 high Not Available [facility] (Lab) [address] [place], [address], 05/26/2022 10:52:42 05/26/20 22 05/26/2022 BASIC METAB OLIC PANEL BUN 11 mg/dL 8-19 Not Available [facility] (Lab) [address] [place], [address], 05/26/2022 10:52:42 05/26/20 22 05/26/2022 BASIC METAB OLIC PANEL creatinine 0.78 mg/dL 0.66-1 .25 Not Available [facility] (Lab) [address] [place], [address], 05/26/2022 10:52:42 05/26/2005/26/2022 BASIC METAB OLIC PANEL GFR >60 Refer ence Range : Mcbain ge GFR Healt hy Adult : >60 mL/mi n/1.7 3 m2 Chron ic Kidne y Disea se: 15-60 mL/mi n/1.7 3 m2 Kidne y Failu re: <15/m L/min /1.73 m2 www.n iddk. nih.g ov The MDRD study equat ion has not been valid ated in child fabian <18 years of age; pregn ant women ; the elder ly >85 years of age; or in some racia l or ethni c subgr oups, such as Hispa nics. Outsi de the valid ated paula eters , estim ated GFR is less accur ate, requi ring clini petr judgm ent on a case- by-ca se basis . Clini petr inter preta tion for other races and ages must be made by the clini cullen. The MDRD study equat ion has not been valid ated for the evalu ation of serum creat inine relat ed to nutri natan l statu s or medic ation usage . For perso ns <18 years of age, a pedia tric GFR calcu lator is avail able on the [facility] websi te: https ://sally rosales.orly veronica/pr ofess ional s/kdo qi/gf r_cal culat or Not Available [facility] (Lab) [address] [place], [address], 05/26/2022 10:52:42 05/26/2005/26/2022 BASIC METAB OLIC PANEL calcium 9.1 mg/dL 8.4-10 .2 Not Available [facility] (Lab) [address] [place], [address], 05/26/2022 10:52:42 05/26/2005/26/2022 CBC/C OMPLE TE BLD COUNT W/DIF F white blood cells 6.9 x10'3 /uL 4.2-10 .8 Not Available [facility] (Lab) [address] [place], [address], 05/26/2022 10:40:21 05/26/20 22 05/26/2022 CBC/C OMPLE TE BLD COUNT W/DIF F red blood cells 3.79 x10'6 /uL 3.80-5 .20 low Not Available [facility] (Lab) [address] [place], [address], 05/26/2022 10:40:21 05/26/20 22 05/26/2022 CBC/C OMPLE TE BLD COUNT W/DIF F hemoglobin 10.4 g/dL 12.0-1 5.6 low Not Available [facility] (Lab) [address] [place], [address], 05/26/2022 10:40:21 05/26/20 22 05/26/2022 CBC/C OMPLE TE BLD COUNT W/DIF F hematocrit 33.2 % 35.7-4 5.7 low Not Available [facility] (Lab) [address] [place], [address], 05/26/2022 10:40:21 05/26/20 22 05/26/2022 CBC/C OMPLE TE BLD COUNT W/DIF F mean red cell volume 87.6 fL 82.0-9 9.0 Not Available [facility] (Lab) [address] [place], [address], 05/26/2022 10:40:21 05/26/20 22 05/26/2022 CBC/C OMPLE TE BLD COUNT W/DIF F mean red cell hemoglobin 27.4 pg 27.0-3 3.0 Not Available [facility] (Lab) [address] [place], [address], 05/26/2022 10:40:21 05/26/20 22 05/26/2022 CBC/C OMPLE TE BLD COUNT W/DIF F mean RBC HGB concentratio n 31.3 g/dL 31.0-3 6.0 Not Available [facility] (Lab) [address] [place], [address], 05/26/2022 10:40:21 05/26/20 22 05/26/2022 CBC/C OMPLE TE BLD COUNT W/DIF F red cell distribution width 14.2 % 11.8-1 5.5 Not Available [facility] (Lab) [address] [place], [address], 05/26/2022 10:40:21 05/26/20 22 05/26/2022 CBC/C OMPLE TE BLD COUNT W/DIF F platelets 292 x10'3 /uL 150-40 0 Not Available [facility] (Lab) [address] [place], [address], 05/26/2022 10:40:21 05/26/20 22 05/26/2022 CBC/C OMPLE TE BLD COUNT W/DIF F mean platelet volume 9.6 fL 9.0-12 .4 Not Available [facility] (Lab) [address] [place], [address], 05/26/2022 10:40:21 05/26/20 22 05/26/2022 CBC/C OMPLE TE BLD COUNT W/DIF F neutrophils 56.2 % 39.0-7 2.0 Not Available [facility] (Lab) [address] [place], [address], 05/26/2022 10:40:21 05/26/20 22 05/26/2022 CBC/C OMPLE TE BLD COUNT W/DIF F lymphocytes 30.0 % 16.0-4 7.0 Not Available [facility] (Lab) [address] [place], [address], 05/26/2022 10:40:21 05/26/20 22 05/26/2022 CBC/C OMPLE TE BLD COUNT W/DIF F monocytes 10.0 % 5.0-12 .0 Not Available [facility] (Lab) [address] [place], [address], 05/26/2022 10:40:21 05/26/20 22 05/26/2022 CBC/C OMPLE TE BLD COUNT W/DIF F eosinophils 2.7 % 1.0-7. 0 Not Available [facility] (Lab) [address] [place], [address], 05/26/2022 10:40:21 05/26/20 22 05/26/2022 CBC/C OMPLE TE BLD COUNT W/DIF F basophils 0.7 % 0.0-2. 0 Not Available [facility] (Lab) [address] [place], [address], 05/26/2022 10:40:21 05/26/20 22 05/26/2022 CBC/C OMPLE TE BLD COUNT W/DIF F immature granulocytes 0.4 % 0.00-0 .50 Not Available [facility] (Lab) [address] [place], [address], 05/26/2022 10:40:21 05/26/20 22 05/26/2022 CBC/C OMPLE TE BLD COUNT W/DIF F neutrophils, absolute count 3.89 x10'3 /uL 1.5-8. 0 Not Available [facility] (Lab) [address] [place], [address], 05/26/2022 10:40:21 05/26/20 22 05/26/2022 CBC/C OMPLE TE BLD COUNT W/DIF F lymphocytes, absolute count 2.08 x10'3 /uL 1.07-3 .43 Not Available [facility] (Lab) [address] [place], [address], 05/26/2022 10:40:21 05/26/20 22 05/26/2022 CBC/C OMPLE TE BLD COUNT W/DIF F monocytes, absolute count 0.69 x10'3 /uL 0.29-0 .99 Not Available [facility] (Lab) [address] [place], [address], 05/26/2022 10:40:21 05/26/20 22 05/26/2022 CBC/C OMPLE TE BLD COUNT W/DIF F eosinophils, absolute count 0.19 x10'3 /uL 0.02-0 .53 Not Available [facility] (Lab) [address] [place], [address], 05/26/2022 10:40:21 05/26/20 22 05/26/2022 CBC/C OMPLE TE BLD COUNT W/DIF F basophils, absolute count 0.05 x10'3 /uL 0.01-0 .08 Not Available [facility] (Lab) [address] [place], [address], 05/26/2022 10:40:21 05/26/20 22 05/26/2022 CBC/C OMPLE TE BLD COUNT W/DIF F immature granulocytes ,absolute 0.03 x10'3 /uL 0.00-0 .05 Not Available [facility] (Lab) [address] [place], [address], 05/26/2022 10:40:21 05/26/20 22 05/26/2022 CBC/C OMPLE TE BLD COUNT W/DIF F nucleated red blood cells 0.0 % -0 Not Available [facility] (Lab) [address] [place], [address], 05/26/2022 10:40:21 05/26/20 22 05/26/2022 CBC/C OMPLE TE BLD COUNT W/DIF F NRBC# 0.00 x10'3 /uL Not Available [facility] (Lab) [address] [place], [address], 05/26/2022 10:40:21 06/06/20 22 06/06/2022 SARS- COV-2 RNA(C OVID1 9),RT -PCR sars-cov-2 RNA(covid19) ,RT-PCR negati ve This test has been autho rized by the FDA under an Emerg ency Use Autho rizat ion (EUA) for use by autho rized labor atori es. Negat lefty resul ts do not precl ude SARS- CoV-2 and shoul d not be used as the sole basis for treat ment or other patie nt manag ement decis ions. Test resul ts shoul d be corre lated with the clini petr histo ry, epide miolo gical data, and other data avail able to the clini cullen evalu ating the patie nt. [place] w the Fact Sheet s for healt h care provi ders and patie nts at the [facility] lopez: https ://ww w.fda .gov/ media /1363 12/do wnloa d https ://ww w.fda .gov/ media /1363 13/do wnloa d https ://ww w.fda .gov/ media /1421 92/do wnloa d https ://ww w.fda .gov/ media /1421 91/do wnloa d Metho dolog y: Real- Time RT-PC R Not Available [facility] (Lab) [address] [place], [address], 06/06/2022 13:55:52 06/07/20 22 06/07/2022 GLUCO SE (POIN T OF CARE) glucose (point of care) 418 mg/dL 74-99 high Not Available [facility] (Lab) [address] [place], [address], 06/07/2022 21:18:03 06/08/20 22 06/08/2022 GLUCO SE (POIN T OF CARE) glucose (point of care) 183 mg/dL 74-99 high Not Available [facility] (Lab) [address] [place], [address], 06/08/2022 13:04:37 06/08/20 22 06/08/2022 HEMOG LOBIN A1C HA1C 6.1 % 4.0-6. 0 high Diabe lopez Scree deborah Crite arlin: <5.7% Consi stent with absen ce of diabe lopez 5.7-6 .4% Consi stent with incre ased risk for diabe lopez (pred iabet es) >OR=6 .5% Consi stent with diabe lopez REFER ENCE: Diabe lopez Care 2016, 39(Ley ppl.1 ):s13 -s22 Not Available [facility] (Lab) [address] [place], [address], 06/08/2022 11:33:04 06/08/20 22 06/08/2022 BASIC METAB OLIC PANEL sodium 139 mmol/ L 137-14 5 Not Available [facility] (Lab) [address] [place], [address], 06/08/2022 07:52:29 06/08/20 22 06/08/2022 BASIC METAB OLIC PANEL potassium 4.1 mmol/ L 3.5-5. 1 Not Available [facility] (Lab) [address] [place], [address], 06/08/2022 07:52:29 06/08/20 22 06/08/2022 BASIC METAB OLIC PANEL chloride 105 mmol/ L 98-107 Not Available [facility] (Lab) [address] [place], [address], 06/08/2022 07:52:29 06/08/20 22 06/08/2022 BASIC METAB OLIC PANEL carbon dioxide 26 mmol/ L 22-30 Not Available [facility] (Lab) [address] [place], [address], 06/08/2022 07:52:29 06/08/20 22 06/08/2022 BASIC METAB OLIC PANEL anion gap 12.1 mmol/ L 14-22 low Not Available [facility] (Lab) [address] [place], [address], 06/08/2022 07:52:29 06/08/20 22 06/08/2022 BASIC METAB OLIC PANEL glucose 107 mg/dL 70-99 high Not Available [facility] (Lab) [address] [place], [address], 06/08/2022 07:52:29 06/08/20 22 06/08/2022 BASIC METAB OLIC PANEL BUN 14 mg/dL 8-19 Not Available [facility] (Lab) [address] [place], [address], 06/08/2022 07:52:29 06/08/20 22 06/08/2022 BASIC METAB OLIC PANEL creatinine 0.80 mg/dL 0.66-1 .25 Not Available [facility] (Lab) [address] [place], [address], 06/08/2022 07:52:29 06/08/20 22 06/08/2022 BASIC METAB OLIC PANEL GFR >60 Refer ence Range : Mcbain ge GFR Healt hy Adult : >60 mL/mi n/1.7 3 m2 Chron ic Kidne y Disea se: 15-60 mL/mi n/1.7 3 m2 Kidne y Failu re: <15/m L/min /1.73 m2 www.n iddk. nih.g ov The MDRD study equat ion has not been valid ated in child fabian <18 years of age; pregn ant women ; the elder ly >85 years of age; or in some racia l or ethni c subgr oups, such as Hispa nics. Outsi de the valid ated paula eters , estim ated GFR is less accur ate, requi ring clini petr judgm ent on a case- by-ca se basis . Clini petr inter preta tion for other races and ages must be made by the clini cullen. The MDRD study equat ion has not been valid ated for the evalu ation of serum creat inine relat ed to nutri natan l statu s or medic ation usage . For perso ns <18 years of age, a pedia tric GFR calcu lator is avail able on the F websi te: https ://sally w.kid bobby.o rg/pr ofess ional s/kdo qi/gf r_cal culat or Not Available [facility] (Lab) [address] [place], [address], 06/08/2022 07:52:29 06/08/20 22 06/08/2022 BASIC METAB OLIC PANEL calcium 9.0 mg/dL 8.4-10 .2 Not Available [facility] (Lab) [address] [place], [address], 06/08/2022 07:52:29 06/08/20 22 06/08/2022 CBC W/O DIFFE RENTI AL white blood cells 11.6 x10'3 /uL 4.2-10 .8 high Not Available [facility] (Lab) [address] [place], [address], 06/08/2022 07:28:52 06/08/20 22 06/08/2022 CBC W/O DIFFE RENTI AL red blood cells 3.05 x10'6 /uL 3.80-5 .20 low Not Available [facility] (Lab) [address] [place], [address], 06/08/2022 07:28:52 06/08/20 22 06/08/2022 CBC W/O DIFFE RENTI AL hemoglobin 8.4 g/dL 12.0-1 5.6 low Not Available [facility] (Lab) [address] [place], [address], 06/08/2022 07:28:52 06/08/20 22 06/08/2022 CBC W/O DIFFE RENTI AL hematocrit 27.0 % 35.7-4 5.7 low Not Available [facility] (Lab) [address] [place], [address], 06/08/2022 07:28:52 06/08/20 22 06/08/2022 CBC W/O DIFFE RENTI AL mean red cell volume 88.5 fL 82.0-9 9.0 Not Available [facility] (Lab) [address] [place], [address], 06/08/2022 07:28:52 06/08/20 22 06/08/2022 CBC W/O DIFFE RENTI AL mean red cell hemoglobin 27.5 pg 27.0-3 3.0 Not Available [facility] (Lab) [address] [place], [address], 06/08/2022 07:28:52 06/08/20 22 06/08/2022 CBC W/O DIFFE RENTI AL mean RBC HGB concentratio n 31.1 g/dL 31.0-3 6.0 Not Available [facility] (Lab) [address] [place], [address], 06/08/2022 07:28:52 06/08/20 22 06/08/2022 CBC W/O DIFFE RENTI AL red cell distribution width 14.6 % 11.8-1 5.5 Not Available [facility] (Lab) [address] [place], [address], 06/08/2022 07:28:52 06/08/20 22 06/08/2022 CBC W/O DIFFE RENTI AL platelets 306 x10'3 /uL 150-40 0 Not Available [facility] (Lab) [address] [place], [address], 06/08/2022 07:28:52 06/08/20 22 06/08/2022 CBC W/O DIFFE ALPHONSE AL mean platelet volume 9.3 fL 9.0-12 .4 Not Available [facility] (Lab) [address], [place], [address], 06/08/2022 07:28:52 06/07/20 22 06/07/2022 XR, knee, 1 or 2 view [facility] [address], [place] [address] Patien t Name: SUPRIYA LAUREN Access ion #: [id number] Sex: F : 1960 7 Locati on: Attend ing Physic rainer: SRIKANTH GIL[place]ERT Orderi Physic rainer: SRIKANTH GILBERT Exam Date: 2:02 PM Exam Name: XR KNEE LT 2V Admitt ing Diagno sis(es ): RADIOL OGY REPORT - FINAL EXAM: XR KNEE LT 2V HISTOR Y: LT Total Knee Arthro plasty 61-yea r-old female status post left total knee arthro plasty . COMPAR JEANNA: Preope rative radiog raphs dated 2021. TECHNI QUE: AP and latera l views of the left knee were perfor med. FINDIN GS: See below. IMPRES MATT: Postop erativ e change s of left total knee arthro plasty withou t eviden ce of peripr osthet ic fractu re or other compli cation . Page 1 of 2 [facility] Patien t Name: SUPRIYA ALUREN ion #: [id number] Sex: F : 1960 7 Exam Date: 2:02 PM Exam Name: XR KNEE LT 2V Admitt ing Diagno sis(es ): Create d and electr onical ly signed by: Matteo malone MD Signed Date: 5:01 PM (CT) Dictat ed by: Matteo malone MD DD: 5:01 PM (CT) DT: 5:01 PM (CT) Page 2 of 2 [id number] [facility] (Imaging) [address] [place], [address], 09/28/2022 13:53:54 07/20/20 22 XR, knee No observ ation record ed. [id number] [facility] [place] [address], [place], [address], 09/28/2022 13:53:54 07/03/20 23 XR, knee No observ ation record ed. [email or web address] [facility] [place] [address] [facility] [address], [place], [address], 07/03/2023 15:26:06 Result Notes None recorded. Problems Name Problem SNOMED Code Status Onset Date Resolution Date Notes Provider Name and Address Organization Details Recorded Time Osteoarthr itis 628623661 Active Not Available [facility] 13:52:18 Anemia 749489662 Active 2021 Not Available [facility] 3 13:52:18 Pain of bilateral knee joints 2775415633247 04 Active 2022 Carolyn Chawla, GIFTY null, [place] [facility] 3 15:02:32 Problem Notes None recorded. Procedures Surgical History Date Name Laterality Status Provider Name and Address Organization Details Recorded Time section completed Not Available [facility] 09/28/2022 13:51:43 Knee Replacement completed Not Available [facility] 09/28/2022 13:51:43 Imaging Results None recorded. Procedure Notes None recorded. Medical Equipment None Reported. Allergies No known drug allergies Medications Name Sig Start Date Stop Date Status Note LastModified by Organization Details LastModified Time celecoxib 200 mg capsule TAKE (1) CAPSULE BY MOUTH DAILY. active Not Available Not Available No t Available latanoprost 0.005 % eye drops active Not Available Not Available Not Available silver sulfadiazin e 1 % topical cream APPLY A THIN COATING TO OPEN SKIN AREAS ON KNEE 2 TIMES DAILY 07/20 completed Not Available Not Available Not Available prednisone 10 mg tablet 08/24 completed Not Available Not Available Not Available doxycycline hyclate 100 mg capsule 06/27 completed Not Available Not Available Not Available atorvastati n 10 mg tablet active Not Available Not Available Not Available prednisone 20 mg tablet Take 1 tablet every day by oral route. 06/27 completed Not Available Not Available Not Available peg-electro lyte solution 420 gram oral solution 06/17 completed Not Available Not Available Not Available acetaminoph en 500 mg tablet TAKE (2) TABLETS BY MOUTH EVERY 6 HOURS active Not Available Not Available No t Available prednisone 10 mg tablets in a dose pack Take 1 tab by mouth, 3 times a day for 3 daysTake 1 tab by mouth 2 times a day for 2 daysTake 1 tab by mouth once a day for 1 day 08/24 completed Not Available Not Available Not Available alendronate 35 mg tablet active Not Available Not Available Not Available Kenalog 10 mg/mL suspension for injection In office injection administe red by the provider 08/24 completed [facility]: 0003- 0494- 20 Not Available Not Available Not Available losartan 25 mg tablet active Not Available Not Available No t Available omeprazole 20 mg capsule,del ayed release active Not Available Not Available Not Available Banophen 25 mg capsule 06/27 completed Not Available Not Available Not Available hydroxyzine HCl 25 mg tablet active Not Available Not Available Not Available bisacodyl 5 mg tablet,jc yed release 06/17 completed Not Available Not Available Not Available mupirocin 2 % topical ointment Applied as directed in both nostrils twice daily for 5 days starting 06-02-22 active Not Available Not Available No t Available ibuprofen 600 mg tablet TAKE ONE TABLET TWICE DAILY WITH MEALS 06/17 completed Not Available Not Available Not Available polyethylen e glycol 3350 17 gram/dose oral powder 06/17 completed Not Available Not Available Not Available timolol maleate 0.5 % eye drops active Not Available Not Available Not Available cholecalcif maraih (vitamin D3) 125 mcg (5,000 unit) capsule active Not Available Not Available Not Available Hibiclens 4 % topical liquid Perform daily total body-wash for 5 days starting 06-02-2206/17 completed Not Available Not Available Not Available dorzolamide 2 % eye drops active Not Available Not Available Not Available oxycodone 5 mg tablet Take 1 tablet PO Q 4hr PRN pain active Not Available Not Available No t Available escitalopra m 10 mg tablet active Not Available Not Available Not Available lidocaine (PF) 10 mg/mL (1 %) injection solution In office injection administe red by the provider 08/24 completed [facility]: 0409- [phone]- [phone] Not Available Not Available Not Available fenofibrate nanocrystal lized 48 mg tablet active Not Available Not Available Not Available Eliquis 2.5 mg tablet Take by oral route for 14 days. active Not Available Not Available No t Available Stimulant Laxative Plus 8.6 mg-50 mg tablet TAKE (2) TABLETS BY MOUTH TWICE DAILY.HOL D FOR LOOSE STOOLS 07/20 completed Not Available Not Available Not Available Vitals Date Recorded Body height Provider Name an d Address Organization Details Last Updated DateTime 06/17/2022 149.86 cm Not Available [facility] 3 13:52:09 Date Recorded Body height Provider Name an d Address Organization Details Last Updated DateTime 06/27/2022 149.86 cm Not Available [facility] 3 13:52:09 Date Recorded Body height Body mass index (BMI) Body weight Provider Name and Address Organization Details Last Updated DateTime 07/03/2023 149.86 cm 35.3 kg/m2 47341.66 g GIFTY Lenz [place] [facility] [employer] [facility] 07/03/2023 15:05:20 Date Recorded Body mass index (BMI) Body height Body weight Provider Name and Address Organization Details Last Updated DateTime 07/04/2022 30.9 kg/m2 152.4 cm 27811.59 g Not Available [facility] 09/28/2022 13:52:09 Date Recorded Body height Provider Name an d Address Organization Details Last Updated DateTime 07/20/2022 152.4 cm Not Available [facility] 3 13:52:09 Social History None recorded. Functional Status Question Answer Note LastModified by Organizat ion Details LastModified Time What is your level of alcohol consumption? None [id number] Information not available 09/28/2022 Mental Status None recorded. Family History Nothing Reported. Medical History Condition Response BLINDNESS N KIDNEY STONES N MRSA N CARPAL TUNNEL SYNDROME N LUNG DISEASE/DISORDER N HISTORY OF DRUG ABUSE N RADIATION / CHEMOTHERAPY N COPD N SPORTS INJURY N ANKLE PAIN N BLOOD DISEASES N SCHIZOPHRENIA N SHINGLES N SHOULDER PAIN N BOWEL PROBLEMS N DEPRESSION (INCLUDING POST ) N STROKE/TIA N ULCERS N KNEE PAIN N BENIGN PROSTATIC HYPERPLASIA N OBESITY N GERD/NAUSEA N ANEURYSM N URINARY/BLADDER/KIDNEY PROBLEMS N CORONARY ARTERY DISEASE (CAD) N ADDICTION CONCERNS N USE OF BLOOD THINNERS N SKIN PROBLEMS N EMPHYSEMA N MUSCLE,JOINT OR BONE PROBLEMS N DVT N STOMACH ULCERS N BLOOD CLOTS N USE OF NSAIDS N CONCUSSION OR SPINAL TRAUMA N NEUROPATHY N AIDS/HIV N FRACTURES N HYPERTENSION N ELBOW PAIN N TOURETTE'S N Metal allergy N ANXIETY DISORDER N BLOOD TRANSFUSION N ANEMIA/BLOOD DISORDER N BIPOLAR DISORDER N BRONCHITIS N OSTEOARTHRITIS N TUBERCULOSIS N FOOT PROBLEM N HEART VALVE DISORDERS N ALLERGIES/HAYFEVER N SOFT TISSUE INJURY N INFECTIOUS DISEASE N HEART ARRHYTHMIA N INSOMNIA N HIGH CHOLESTEROL / HYPERLIPIDEMIA N RHEUMATOID ARTHRITIS N EDEMA N CHRONIC PAIN SYNDROME N CAROTID BLOCKAGE N BACK / NECK PROBLEMS N HAVE YOU BEEN HOSPITALIZED OR SEEN IN [facility] ER IN THE PAST YEAR ? N BURSITIS N HERNIATED DISC N DIALYSIS N FIBROMYALGIA N OSTEOPOROSIS Y ARTHRITIS Y NO SIGNIFICANT PAST MEDICAL HISTORY N PERIPHERAL NEUROPATHY N DIABETES, TYPE N HEARTBURN / REFLUX N HEPATITIS / LIVER DISEASE N GOUT N ALZHEIMER'S DISEASE N SLEEP DISORDER N HERPES N HEADACHES/MIGRAINES N SEIZURES/EPILEPSY N VASCULAR DISEASE N Blood Disorder N HIP PAIN N DIZZINESS N HEAD TRAUMA OR INJURY N HEART DISEASE/HEART PROBLEMS N MULTIPLE SCLEROSIS N CANCER: SPECIFY N CARDIAC ARRHYTHMIA N ANESTHESIA COMPLICATIONS N ATRIAL FIBRILLATION N AUTOIMMUNE DISEASE N Gynecological HistoryNo gynecological history recorded. Obstetrics History GPAL:G 0 P 0 0 0 0 Past Encounters Encounter ID Performer Location Encounter Start Date Encounter Closed Date Diagnosis/Indication Diagnosis SNOMED-CT Code Diagnosis ICD10 Code Diagnosis IMO Codes Diagnosis Note [id number] Jemal Cohen MD [facility] [place] [address] [place] [address] 06/29/2021 00:00:00 06/29/2021 14:59:51 [id number] Jemal Cohen MD [facility] [place] [address] [place] [address] 08/24/2021 00:00:00 08/24/2021 15:29:31 [id number] MD [facility] [address] [address] 12/09/2021 00:00:00 12/10/2021 21:33:19 [id number] MD [facility] [place] [address] [place] [address] 01/28/2022 00:00:00 01/28/2022 11:06:22 [id number] MD [facility] [place] [address] [place] [address] 02/14/2022 00:00:00 02/14/2022 14:56:49 [id number] MD [facility] [address] [address] 03/03/2022 00:00:00 03/03/2022 12:04:04 [id number] MD [facility] [address] [address] 03/17/2022 00:00:00 03/17/2022 10:54:18 [id number] MD [facility] [place] [address] [place] [address] 04/15/2022 00:00:00 04/24/2022 14:56:38 [id number] MD [facility] [place] [address] [place] [address] 06/17/2022 00:00:00 06/26/2022 11:14:37 [id number] MD [facility] [place] [address] [place] [address] 06/27/2022 00:00:00 06/28/2022 15:56:03 [id number] MD [facility] [place] [address] [place] [address] 07/04/2022 00:00:00 07/04/2022 16:24:09 [id number] Srikanth Ken MD [facility] [place] [address] [place] [address] 07/20/2022 00:00:00 07/20/2022 11:40:03 [id number] Srikanth Ken MD [facility] [place] [address] [facility] [address] [place] [address] 07/03/2023 14:42:13 07/03/2023 15:30:51 History of bilateral total knee replacement [id number] Z96.653 Health Concerns Section Related Observation LastModified by Organization Detai ls LastModified Time None Recorded Concern Status LastModified by Organization Details LastModified Time None Recorded Advance Directives Directive None Recorded Payers Insurance Date Sequence Insurance Name Policy Number Policy Cross Covered Member ID Cross Member ID Guarantor Name 07/10/2023 1 [facility] (MEDICAID HMO) [id number] Supriya Lauren [id number] Supriya Lauren OBGyn Episode No OBEpisode recorded.
--- OUTSIDE RECORDS SUMMARY | 2025-05-30 22:35 | XMS_ITS | Encounter Summary ---
Author Organization [facility] Healthcare Address [address] [place] [address] Care Team Providers Care Milk Treater Name Role Phone aBrt Bettencourt MD Primary Care Provider [phone] Brea Sorensen MD, Marino Vance. 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 * Result Encounter Note - Charito Wright NP - 05/29/2025 9:00 AM CDT Please alert patient that urine culture was negative. She can stop taking antibiotics if any were given for a UTI. If s/s persist, she should follow up with PCP. * Result Encounter Note - Britney Rodriguez MA - 05/28/2025 9:28 AM CDT Called and spoke with patient about their negative test results. And they had a good understanding. documented in this encounter Plan of Treatment Not on file documented as of this encounter Visit Diagnoses Not on filedocumented in this encounter Care Teams Milk Treater Relationship Specialty Start Date End Date Bart Bettencourt MD [address] [place] [address] PCP - General Family Medicine 01/05/22 Marino Guidry Jr., MD [address] [place] [address] Consulting Physician Cardiovascular Disease 01/05/22 documented as of this encounter
[2025-05-30 22:39] VITALS: BP 146/78; PULSE 110; RESP 17; TEMP 36.4; O2SAT 98
--- NOTE | 2025-05-30 22:40 | ECG_ITS ---
Test Date: 2025-05-31 00:15:42 Measurements Intervals [place] Rate: 90 P: 17 GA: 139 QRS: -10 QRSD: 97 T: -13 QT: 373 QTc: 457 Interpretive Statements SINUS RHYTHM ANTEROSEPTAL MYOCARDIAL INFARCTION , OF INDETERMINATE AGE [40+ ms Q WAVE IN V1-V4] Compared to ECG 12/25/2024 23:34:46 no significant change Electronically Signed On 05-31-2025 12:01:41 CDT by Junito Dunn M.D.
[2025-05-30 23:12] VITALS: BP 158/73; PULSE 104; RESP 22; O2SAT 100
[2025-05-30 23:16] VITALS: BP 165/79; PULSE 98; RESP 21; O2SAT 91
--- NOTE | 2025-05-30 23:21 | ED_ITS ---
HPI - Altered Mental Status General Chief Complaint: Altered Mental Status Stated Complaint: increase in confusion, mental status change Time Seen by Provider: 05/30/25 23:08 History of Present Illness HPI narrative: 64-year-old female with history of intellectual delay, hyperlipidemia presenting to the emergency department today with increased confusion over the past week. Patient's rubber boots and shoes repairer is present and providing the majority of the collateral formation. She has noticed that the patient has been more boisterous over the last week and not acting appropriately, wandering around town today during the Halloween parade. Patient denies any traumatic injuries and states she feels good. She endorses a headache presently but denies any falls or injuries. No blood thinner use. No fever, chills, shortness a breath. Was otherwise in her normal state of health. States she took a beer earlier today. Patient's rubber boots and shoes repairer states she is only intermittently compliant with her medications and has missed several doses of her escitalopram in addition to her lipid medications. Otherwise patient has been in her normal state of health and went to urgent care 3 days ago with suspicion for UTI but was told that her urine was negative at that time. Related Data Allergies Allergy/AdvReac Type Severity Reaction Status Date / Time No Known Allergies Allergy Verified 05/30/25 22:39 Review of Systems 2 Review of Systems: As reviewed above in HPI Exam 2 Narrative: GENERAL: Pleasant and cooperative, in good spirits, not any acute distress. HEAD: [Normocephalic, atraumatic.] EYES: [PERRLA and EOMI.] ENT: Nares clear, no rhinorrhea or epistaxis. Mucous membranes moist. NECK: Supple. CHEST: [Clear to auscultation. No respiratory distress.] HEART: [Regular rate and rhythm]. No murmur heard. [Normal peripheral pulses.] ABDOMEN: [Soft, nondistended], [nontender], [No rigidity or guarding] EXTREMITIES: Normal range of motion. [No edema.] SKIN: Warm, dry, no rash. NEURO: [No focal deficits]. Alert and oriented [x3.] Moving all extremities symmetrically. No facial asymmetries or slurring speech. No facial droop. Strength and sensation intact both arms and legs. PSYCH: [Normal mood and affect.] Course Vital Signs Vital signs: Vital Signs Temperature 36.4 C 05/30/25 22:39 Pulse Rate 110 H 05/30/25 22:39 Respiratory Rate 17 05/30/25 22:39 Blood Pressure 146/78 H 05/30/25 22:39 Pulse Oximetry 98 05/30/25 22:39 Temperature 36.4 C 05/30/25 22:39 Pulse Rate 89 05/31/25 02:39 Respiratory Rate 20 05/31/25 02:39 Blood Pressure 156/65 H 05/31/25 02:39 Pulse Oximetry 100 05/31/25 02:39 Oxygen Delivery Room Air 05/31/25 00:05 MDM - Altered Mental Status MDM Narrative Medical decision making narrative: 64-year-old female with history of intellectual delay, hyperlipidemia presenting to the emergency department today with increased confusion over the past week. Patient's rubber boots and shoes repairer is present and providing the majority of the collateral formation. She has noticed that the patient has been more boisterous over the last week and not acting appropriately, wandering around town today during the Halloween parade. Patient denies any traumatic injuries and states she feels good. She endorses a headache presently but denies any falls or injuries. No blood thinner use. No fever, chills, shortness a breath. Was otherwise in her normal state of health. States she took a beer earlier today. Patient's rubber boots and shoes repairer states she is only intermittently compliant with her medications and has missed several doses of her escitalopram in addition to her lipid medications. Otherwise patient has been in her normal state of health and went to urgent care 3 days ago with suspicion for UTI but was told that her urine was negative at that time. Patient had mild tachycardia in triage but this resolved upon going to the examination room and resting. Current heart rate 95. No tachycardia or tachypnea. Blood pressure 146/78. Afebrile. 98% on room air. She has an unremarkable physical examination and is in good spirits. Endorses a headache at this time but otherwise no symptoms. She is pleasant, no neurological deficits appreciated. Has a history of intellectual delay and given family's concern for changes in her cognition recently a broad workup was underway including CBC, CMP, urinalysis, CT of the head, chest x-ray and EKG. Patient given some fluids and Tylenol for headache. Workup shows no leukocytosis or anemia. Normal renal function. Normal electrolytes. Normal LFTs. Normal glucose. CT head without any acute findings. Chest x-ray and EKG are unremarkable. Urinalysis has florid signs of UTI. Culture sent. Patient started on Rocephin and will be discharged with Keflex. Patient and care workers updated on plan of care and patient is safe for discharge with regular PCP follow-up. Medical Records Attestation: I reviewed the patient's medical records. Lab Data Attestation: I reviewed the patient's lab results. 05/30/25 23:30 05/30/25 23:30 Labs: Lab Results 05/30/25 Range/Units 23:30 WBC 9.4 (4.5-10.0) K/mm3 RBC 4.34 (4.2-5.4) M/mm3 Hgb 12.7 (12.0-15.0) g/dL Hct 38.8 (37.0-47.0) % MCV 89.4 (80-100) fl MCH 29.3 (26-34) pg MCHC 32.7 (32-36) g/dl RDW 13.0 (11.5-14.5) % Plt Count 322 (150-375) k/mm3 MPV 9.9 (7.4-10.4) fl Immature Gran % (Auto) 0.2 (0-0.5) % Neut % (Auto) 70.4 (45.5-73.1) % Lymph % (Auto) 21.1 (18.3-44.2) % Bond % (Auto) 8.1 (2.6-8.5) % Eos % (Auto) 0.0 (0-4.4) % Baso % (Auto) 0.2 (0.2-1.2) % Lymph # (Auto) 1.98 (0.9-3.2) K/mm3 Bond # (Auto) 0.8 H (0.1-0.6) K/mm3 Eos # (Auto) 0.0 (0-0.3) K/mm3 Baso # (Auto) 0.0 (0.0-0.1) K/mm3 Abs Immat Gran (auto) 0.02 (0.00-0.031) K/mm3 Absolute Neuts (auto) 6.6 (1.3-6.7) K/mm3 Absolute Nucleated RBC 0.000 (0.0-0.012) K/mm3 Nucleated RBC % 0.0 (0.0-0.2) % PT 13.7 (11.1-14.7) Seconds INR 1.1 APTT 28.8 (22.3-36.8) Seconds Sodium 136 L (137-145) mmol/L Potassium 3.9 (3.4-5.0) mmol/L Chloride 103 (98-107) mmol/L Carbon Dioxide 22 (22-30) mmol/L Anion Gap 11 (4-12) mmol/L BUN 14 (7-17) mg/dL Creatinine 0.86 (0.7-1.0) mg/dL Estim Creat Clear Calc 52 ml/min Estimated GFR > 60 (59 - ) Glucose 100 (65-110) mg/dL Calcium 9.7 (8.4-10.2) mg/dL Total Bilirubin 0.7 (0.2-1.3) mg/dL AST 32 (14-36) U/L ALT 22 (6-35) U/L Alkaline Phosphatase 61 (38-126) U/L Total Protein 7.9 (6.3-8.2) g/dL Albumin 4.8 (3.5-5.1) g/dL Urine Color Yellow (Yellow) Urine Appearance Cloudy H (Clear) Urine pH 6.0 (5.0-9.0) Ur Specific Rosine 1.012 (1.001-1.035) Urine Protein Negative (Negative) mg/dL Urine Glucose (UA) Negative (Negative) mg/dL Urine Ketones Negative (Negative) mg/dL Ur Blood (Man) Non-hemolyzed trace H (Negative) Urine Nitrate Positive H (Negative) Urine Bilirubin Negative (Negative) Urine Urobilinogen 1.0 (<2.0) mg/dL Leukocyte Esterase Rfl 3+ H (Negative) DIANNA/UL Urine RBC 6-10 H (0-2) /hpf Urine WBC 51-100 H (0-3) /hpf Ur Squamous Epith Cells Moderate (Few) /hpf Urine Bacteria 4+ H /hpf Urine Casts 0-2 Influenza A (RT-PCR) Negative (Negative) Influenza B (RT-PCR) Negative (Negative) RSV (RT-PCR) Negative (Negative) SARS-CoV-2 RNA (RT-PCR) Negative (Negative) Imaging Data Attestation: I personally reviewed and interpreted this imaging study as follows: My impression: Impressions Head CT 05/30/25 22:55 IMPRESSION: No acute intracranial hemorrhage or extra axial fluid collections. Chronic white matter microangiopathic changes. All CT scans at this facility are performed using low dose modulation techniques as appropriate to perform exam including the following: automated exposure control; use of iterative reconstruction technique; adjustment of the mA and/or kV according to patient size (this includes techniques or standardized protocols for targeted exams where dose is matched to indication/reason for exam). Discharge Plan Discharge Clinical Impression: Acute UTI, Delirium due to general medical condition Patient Disposition: Home Condition: Stable Instructions: Antibiotic Form, Urinary Tract Infection in Older Adults (ED) Additional Instructions: Laboratory studies and imaging are all reassuring and normal aside from a urine that shows 4+ bacteria, inflammatory markers and evidence of urinary tract infection which is likely the source of patient's symptoms. We will treat this with antibiotics. Follow-up with the primary doctor. Return with any emergent concerns. Patient Language: Maltese Prescriptions: New cephalexin 500 mg capsule 500 mg PO Q12H 7 Days Qty: 14 0RF No Action cephalexin 500 mg capsule 500 mg PO Q8H 7 Days Qty: 21 0RF Follow-up/Referrals: Sg,Bart Bertrand MD [Primary Care Provider, Unknown] Time of Disposition: 23:56
--- OUTSIDE RECORDS SUMMARY | 2025-05-30 23:27 | XMS_ITS | Clinical Summary ---
Author Organization [place] [id number] Address [address] [place] [address] Care Team Providers Care Supervisor Post Wave Name Role Phone Bart Bettencourt MD Primary Care Provider Brea Sorensen MD, Marino P. Unavailable [phone] Allergies Active Allergy Reactions Criticality Noted Date [...] 09/10/2024 Assessment & Plan (09/10/2024 10:19 AM PAPER BAG MACHINE OPERATOR): BMI Follow-up includes: nutrition counseling, exercise counseling, and education provided. Vulvar itching 09/02/2024 Assessment & Plan (09/02/2024 10:22 AM PAPER BAG MACHINE OPERATOR): Will treat with nystatin and powder Moderate episode of recurrent major depressive d isorder 09/12/2023 Age-related osteoporosis wit hout current pathological fracture 08/28/2023 Overview (11/12/2024): 2022- -2.7 started fosomax 2024= -2.7 Assessment & Plan (09/02/2024 10:23 AM PAPER BAG MACHINE OPERATOR): To bmd To continue fosamax for now Assessment & Plan (11/27/2023 11:20 AM CDT): To continue on the Fosamax How to take was reviewed Will plan to repeat her BMD in 2024 Assessment & Plan (08/28/2023 9:44 AM PAPER BAG MACHINE OPERATOR): Doing well on fosamax Will check bones next year Abnormal mammogram of both breasts 08/28/2023 Overview (11/27/2023): 08/2022- bilateral calcifications 2023- Assessment & Plan (11/27/2023 11:20 AM CDT): We discussed that as her last mammogram was negative, she has and she has no current tenderness or palpable masses, I do not think her insurance will cover another mammogram this year. She and her product control and logistics analyst would like to do her next screening mammogram at [facility]. She was asked to call if she develops any interval issues Assessment & Plan (08/28/2023 10:00 AM PAPER BAG MACHINE OPERATOR): Will arrange for her to have repeat [...] Gardasil: Assessment & Plan (09/02/2024 10:25 AM PAPER BAG MACHINE OPERATOR): I did not do a pap as couldn't get up there Otherwise complete exam done. Assessment & Plan (11/27/2023 10:16 AM CDT): Due in Jul 2024 Assessment & Plan (08/28/2023 10:01 AM PAPER BAG MACHINE OPERATOR): Complete exam done Encounter for screening for malignant neoplasm o f colon 06/14/2022 Overview (06/14/2022): Added automatically from request for surgery [id number] Hypertension associated with diabetes 01/05/2022 Assessment & [...] Department Care Team Description 05/28/2025 Results Follow-Up [facility] Care at [address] [address] Cesilia Billy NP Vaginitis panel Vaginal, Urine culture Urine, clean voided 05/27/2025 5:38 PM CDT - 05/27/2025 11:59 PM CDT Hospital Encounter [address] [address] Vaginal itching; Urinary urgency Discharge Disposition: Discharge to home or self care 05/27/2025 5:00 PM CDT Office Visit [facility] Care at [address] [address] Cesilia Billy NP Urinary urgency (Primary Dx); Vaginal itching; Weight loss, unintentional 03/04/2025 10:50 AM CDT Lab [address] [address] Hypertension associated with diabetes (HCC) 03/04/2025 10:15 AM CDT Office Visit [facility] Primary Care at [address] [address] Bart Bettencourt MD Hypertension associated with diabetes [...] on file Legal Sex Female 11:42 AM PAPER BAG MACHINE OPERATOR Gender Identity Not on file Sexual Orientation [...] REFLEX TO GENOTYPING Routine 08/22/2022 10:30 AM PAPER BAG MACHINE OPERATOR Well woman exam COLONOSCOPY 07/05/2022 10:04 AM PAPER BAG MACHINE OPERATOR HEPATITIS C ANTIBODY Routine 01/05/2022 3:40 PM [...] status. Anahy group Not Detected Not Detected [facility] Anahy glabrata/ krusei Not Detected Not Detected [facility] Trichomonas DNA Not Detected Not Detected [facility] Vaginal 05/27/2025 5:38 PM CDT 05/27/2025 8:07 PM CDT Narrative [facility] - 05/27/2025 9:26 PM CDT The CepKismetid Xpert Xpress MVP test detects DNA targets [...] this test have been verified by the [facility]. Cesilia Billy NP LAB MICROBIOLOGY - GENERAL ORDE RABLES Final Result [facility] [address] Department [place] [address] [place] * Urine culture Urine, clean voided (05/27/2025 5:38 PM CDT) Report Final Report: Less than 100,000 colonies/mL (clinically insignificant growth based on current clinical standards) Comment:Testing performed by : [facility], [address] [place]., [address] Organism (CLINICALLY INSIGNIFICANT GROWTH [facility] Urine, clean voided 05/27/2025 5:38 PM CDT 05/27/2025 10:14 PM CDT Narrative [facility] - 05/29/2025 8:59 AM CDT Testing performed by [facility] Microbiology Laboratory ([phone]) Cesilia Billy NP LAB MICROBIOLOGY - GENERAL ORDE [facility] Final Result Performing Organization Address City/[facility]/ZIP Co de Phone Number [facility] [address] [address] Department [place] [address] * POCT urinalysis dipstick (05/27/2025 5:09 PM CDT) Color, Urine, POC Dark Yellow Clarity, ur, POC Clear Clear Glucose, ur, POC Negative Negative Bilirubin, ur, POC Negative Negative Ketones, ur, POC Negative Negative Specific Vivian, POC 1.020 1.003 - 1.030 Blood, ur, POC Negative Negative pH, ur, POC 5.5 5.0 - 8.0 Protein, ur, POC Negative Negative Urobilinogen, urine, POC 1.0 0.2 - 1.0 mg/dL Nitrite, ur, POC Negative Negative Leukocytes, ur, POC Negative Negative Lot Number [id number] Urine 05/27/2025 5:09 PM CDT Ranita Billy DIVING [facility] POINT OF CARE TEST ORDERABLES F inal Result * eGFR (03/04/2025 10:54 AM CDT) Pathologist [facility] eGFR 62 >=60 mL/min/1. 73 m2 Comment: [...] Bettencourt MD LAB BLOOD ORDERABLES Final Result [facility] [address] [facility] Department [place] [address] * Differential, auto (03/04/2025 10:54 AM CDT) Pathologist [facility] Neutrophil abs 5.85 1.50 - 6.50 K/cumm Imm gran abs 0.04 0.00 - 0.10 K/cumm [facility] Lymphocyte abs 2.10 0.80 - 3.30 K/cumm [facility] Monocyte abs 0.78 0.20 - 0.80 K/cumm [facility] Eosinophil abs 0.10 0.00 - 0.50 K/cumm [facility] Basophil abs 0.06 0.00 - 0.10 K/cumm [facility] Neutrophil pct 65.6 % [facility] Comment: Interpretive Data Percent cell count reference ranges are not reported, since discordance with absolute values may lead to misinterpretation of CBC data. Current Interpretive Data was last revised on 2017. Imm gran pct 0.4 % [facility] Comment: Interpretive Data Percent cell count reference ranges are not reported, since discordance with absolute values may lead to misinterpretation of CBC data. Current Interpretive Data was last revised on 2017. Lymphocyte pct 23.5 % [facility] Comment: Interpretive Data Percent cell count reference ranges are not reported, since discordance with absolute values may lead to misinterpretation of CBC data. Current Interpretive Data was last revised on 2017. Monocyte pct 8.7 % [facility] Comment: Interpretive Data Percent cell count reference ranges are not reported, since discordance with absolute values may lead to misinterpretation of CBC data. Current Interpretive Data was last revised on 2017. Eosinophil pct 1.1 % [facility] Comment: Interpretive Data Percent cell count reference ranges are not reported, since discordance with absolute values may lead to misinterpretation of CBC data. Current Interpretive Data was last revised on 2017. Basophil pct 0.7 % [facility] Comment: Interpretive Data Percent cell count reference ranges are not reported, since discordance with absolute values may lead to misinterpretation of CBC data. Current Interpretive Data was last revised on 2017. Blood 03/04/2025 10:5 4 AM CDT 03/04/2025 1:53 PM CDT Bart Bettencourt MD LAB BLOOD ORDERABLES Final Result [facility] [address] [facility] Department [place] [address] * (ABNORMAL) CBC with auto differential (03/04/2025 10:54 AM CDT) WBC 8.93 3.80 - 9.90 K/cumm Hgb 12.6 11.9 - 15.5 g/dL [facility] Hct 39.3 35.6 - 45.5 % [facility] Plt 337 150 - 400 K/cumm [facility] MPV 10.4 9.1 - 12.3 fL [facility] RBC 4.20 3.90 - 5.20 M/cumm [facility] MCV 93.6 81.3 - 96.4 fL [facility] MCH 30.0 27.1 - 33.3 pg [facility] MCHC 32.1(L) 32.3 - 35.7 g/dL [facility] RDW CV 12.5 11.1 - 14.9 % [facility] RDW SD 42.5 35.7 - 48.1 fL [facility] NRBC abs 0.00 0.00 - 0.01 K/cumm [facility] Blood 03/04/2025 10:5 4 AM CDT 03/04/2025 1:53 PM CDT Bart Bettencourt MD LAB BLOOD ORDERABLES Final Result Performing Organization Address [facility] Phone Number [address] [place] [address] * (ABNORMAL) Hemoglobin A1c (03/04/2025 10:54 AM CDT) Hgb A1C 6.4(H) 4.0 - 5.6 % Estimated Average Glucose 137 mg/dL [facility] Comment: The ADA recommends reporting an estimated Average Glucose (eAG) with all Hemoglobin A1c results using the equation derived from a study of 507 normal and diabetic adults. Minority populations were underrepresented and children were not included. (Diabetes Care 31:2440-2389, 2008). The eAG is not equivalent to a fasting glucose. Blood 03/04/2025 10:5 4 AM CDT 03/04/2025 1:53 PM CDT Bart Bettencourt MD LAB BLOOD ORDERABLES Final Result Performing Organization Address [facility] Co de Phone Number [address] [employer] [address] * (ABNORMAL) Lipid panel (03/04/2025 10:54 AM [...] revised on 2018. Triglycerides 205(H) <=149 mg/dL [facility] Comment: Interpretive Data Ages < [...] Bettencourt MD LAB BLOOD ORDERABLES Final Result [facility] [address] [facility] Department [place] [address] * Comprehensive metabolic panel (03/04/2025 10:54 AM CDT) Sodium 138 135 - 145 mmol/L Potassium, pl 4.0 3.3 - 4.9 mmol/L [facility] Chloride 102 97 - 110 mmol/L [facility] CO2 25 22 - 32 mmol/L [facility] Anion gap 11 2 - 15 mmol/L [facility] BUN 22 6 - 25 mg/dL [facility] Creatinine 1.01 0.60 - 1.10 mg/dL [facility] Glucose 121 70 - 199 mg/dL [facility] Comment: Interpretive Data Fasting glucose >/= [...] 2022. Calcium 9.7 8.5 - 10.3 mg/dL [facility] Bilirubin, total 0.5 0.1 - 1.2 mg/dL [facility] Protein, pl 7.3 6.5 - 8.5 g/dL [facility] Albumin 4.4 3.5 - 5.0 g/dL [facility] Alk phos 74 40 - 130 Units/L [facility] ALT 22 7 - 45 Units/L [facility] AST 31 10 - 45 Units/L [facility] Blood 03/04/2025 10:5 4 AM CDT 03/04/2025 1:53 PM CDT Bart Bettencourt MD LAB BLOOD ORDERABLES Final Result [facility] [address] [facility] Department [place] [address] * Albumin Creatinine Ratio, Urine (12/10/2024 9:54 AM CDT) Albumin Ur <12.0 mg/L Comment: Interpretive Data No reference range established. Current interpretive data was last revised 2018. Creatinine Ur 49.0 mg/dL [facility] Comment: Interpretive Data No reference range established. Current interpretive data was last revised 2018. Albumin Creatinine Ratio, Ur <24 1 - 29 mg/g [facility] Urine 12/10/2024 9:54 AM CDT 12/10/2024 4:43 PM CDT Narrative [facility] - 12/10/2024 5:30 PM CDT PLEASE DRAW 12/08 A1C WELL us Bart Bettencourt MD LAB URINE ORDERABLES Final Result [facility] [address] [facility] Department [place] [address] * Screening Mammogram Bilateral W Kenny (10/28/2024 [...] given history of: screening for osteoporosis Screening Clay Grinder/Model: SiSense Discovery SL (S/N [id number]) Facility LSC value of 0.022 for the [...] Aidan Jones M.D. MF: EARLINE Report ID: [id number] Reading Location: [id number] Procedure Note Aidan Jones MD - 10/29/2024 EXAM DESCRIPTION: DEXA AXIAL SKELETON BONE DENSITY 1 OR MORE SITES REASON FOR STUDY: 64 y/o year old F with given history of: screeningfor osteoporosis Screening Clay Grinder/Model: AppointmentCity (S/N [id number]) Facility LSC value of 0.022 for the [...] Aidan Jones M.D. MF: EARLINE Report ID: [id number] Reading Location: [place] [address] Rosa Maria Romero MD IM DXA PROCEDURES Final Result * Pap and High Risk HPV, reflex to Genotyping (08/22/2022 10:30 AM PAPER BAG MACHINE OPERATOR) CLINICAL INFORMATION: [facility] Comment:None given LMP [facility] Comment:None given Previous Pap [facility] Comment:None given Prev. Bx [facility] Comment:None given SOURCE: [facility] Comment:Cervix, Endocervix Pap, specimen adequacy [facility] Comment:SATISFACTORY FOR VIKKI LUATION HPV interp [facility] Comment: Negative for intraepithelial lesion or malignancy. Atrophic pattern; predominantly parabasal cells Field Service Poultry Technician [facility] Comment: JAF, CT(ASCP) CT Screening Location: [place] [address] [place] [address] Comment [facility] Comment: EXPLANATORY NOTE: The Pap is [...] High Risk E6/E7 Not Detected NOT DETECTED [facility] /Ronit SHIRLEY Comment: Not Detected High Risk HPV types (16,18,31,33,35,39,45,51,52, 56,58,59,66,68) were not detected. Other HPV types which cause anogenital lesions may be present. The significance of the other types of HPV in malignant processes has not been established. Methodology: Real Time PCR Thin prep 08/22/2022 10:3 0 AM PAPER BAG MACHINE OPERATOR 08/23/2022 5:37 AM PAPER BAG MACHINE OPERATOR Rosa Maria Romero MD LAB CYTOLOGY ORDERA BLES Final Result [facility] [address] [place] [address] [facility]/[place] [address] [facility] [place] [address] * COLONOSCOPY (07/05/2022 10:04 AM PAPER BAG MACHINE OPERATOR) Anatomical Region Laterality Modality Other Narrative Procedure Note Anthony Pichardo MD - 07/05/2022 10:04 AM CST [facility] Patient Name: Supriya Lauren Procedure Date: 07/05/2022 10:04 AM Date of : 1960 Admit Type: Outpatient Age: 61 Gender: Female Note Status: Finalized Attending MD: Anthony Pichardo M.D. Procedure Date: 07/05/2022 Procedure: Colonoscopy Indications: Screening for colorectal malignant neoplasm, Thisis the patient's first colonoscopy Providers: Anthony Pichardo M.D., Neda Cohen (AnesthesiaStaff), Venus Michel RN, Lorene Palacios, Shirt Ironer Referring MD: Bart Bettencourt M.D. Medicines: Monitored [...] bowel preparation was evaluated using the BBPS ([place] Bowel Preparation Scale) with scores of: Right [...] or abscess without bleeding CPT copyright 2020 [employer]. All rights reserved. The codes documented in this report are preliminary and upon biodiesel product development manager reviewmay be revised to meet current compliance [...] PM CDT 01/05/2022 7:46 PM CDT Bart Bettencourt MD LAB MICROBIOLOGY - GENERAL ORDERABLES Final Result Performing Organization Address City/State/[facility] Phone Number [facility] [address] [facility] Department [place] [address] from Last 3 Months or Most Recently Relevant to Health Maintenance Insurance [facility] MEDIC[facility] Care Teams Supervisor Post Wave Relationship Specialty Start Date End Date Bart Bettencourt MD [address] [place] [address] PCP - General Family Medicine 01/05/22 Marino Guidry Jr., MD [address] [place] [address] Consulting Physician Cardiovascular Disease 01/05/22
--- OUTSIDE RECORDS SUMMARY | 2025-05-30 23:27 | XMS_ITS | Encounter Summary ---
Author Organization [facility] Healthcare Address [address] [place] [address] Care Team Providers Care Radio Aerial Installer Name Role Phone Bart Bettencourt MD Primary Care Provider [phone] Brea Sorensen MD, Marino Vance. Unavailable [phone] Encounter Details Date Type Department Care Team (Late st Contact Info) Description 05/28/2025 Results Follow-Up [facility] Care at [place] [address] [place] [address] Cesilia Billy NP [address] [facility] [address] [place] [address] Vaginitis panel Vaginal, Urine culture [...] on file Legal Sex Female 11:42 AM TIMBER TREATMENT PLANT OPERATOR Gender Identity Not on file Sexual [...] with PCP. * Result Encounter Note - Birtney Rodriguez MA - 05/28/2025 9:28 AM CDT Called and spoke with patient about their negative test results. And they had a good understanding. documented in this encounter Plan of Treatment Not on file documented as of this encounter Visit Diagnoses Not on filedocumented in this encounter Care Teams Radio Aerial Installer Relationship Specialty Start Date End Date Bart Bettencourt MD [address] [place] [address] PCP - General Family Medicine 01/05/22 Marino Guidry Jr., MD [address] [place] [address] Consulting Physician Cardiovascular Disease 01/05/22 documented as of this encounter
[2025-05-30 23:31] VITALS: BP 164/68; PULSE 98; RESP 20; O2SAT 99
[2025-05-30 23:38] LABS: Hematocrit 38.8 % (37.0-47.0); Hemoglobin 12.7 g/dL (12.0-15.0); Immature Granulocyte Percent A 0.2 % (0-0.5); Lymphocytes Absolute Auto 1.98 K/mm3 (0.9-3.2); Mean Corpuscular HGB Conc 32.7 g/dl (32-36); Mean Corpuscular Hemoglobin 29.3 pg (26-34); Mean Corpuscular Volume 89.4 fl (80-100); Nucleated Red Blood Cells Absolute Auto 0.000 K/mm3 (0.0-0.012); Nucleated Red Blood Cells Perc 0.0 % (0.0-0.2); Platelet Count Result 322 k/mm3 (150-375); Red Blood Count 4.34 M/mm3 (4.2-5.4); White Blood Count 9.4 K/mm3 (4.5-10.0)
[2025-05-30 23:43] LABS: Add Urine Microscopic? YES; Appearance Urine Cloudy (Clear); Glucose Urine UA Negative (Negative); Leukocyte Esterase Ur 3+ LEU/UL (Negative); Nitrate Urine Positive (Negative); Non Pathogenic Casts 0-2; Specific Grav Ur 1.012 (1.001-1.035)
[2025-05-30 23:46] VITALS: BP 162/74; PULSE 95; RESP 21; O2SAT 93
[2025-05-30 23:48] LABS: Alanine Aminotransferase 22 U/L (6-35); Albumin Level 4.8 g/dL (3.5-5.1); Alkaline Phosphatase 61 U/L (38-126); Anion Gap 11 mmol/L (4-12); Aspartate Amino Transferase 32 U/L (14-36); Bilirubin,Total 0.7 mg/dL (0.2-1.3); Blood Urea Nitrogen 14 mg/dL (7-17); Calcium 9.7 mg/dL (8.4-10.2); Carbon Dioxide 22 mmol/L (22-30); Chloride 103 mmol/L (98-107); Estimated CRCL calculation 52 ml/min; Estimated Glomerular Filt Rate > 60; Glucose 100 mg/dL (65-110); Potassium 3.9 mmol/L (3.4-5.0); Sodium 136 mmol/L (137-145); Total Protein 7.9 g/dL (6.3-8.2)
[2025-05-30 23:49] LABS: INR 1.1; Prothrombin Time 13.7 Seconds (11.1-14.7)
[2025-05-30 23:50] LABS: Partial Thromboplastin Time 28.8 Seconds (22.3-36.8)
[2025-05-31 00:01] VITALS: BP 173/64; PULSE 91; RESP 18; O2SAT 96
[2025-05-31 00:05] VITALS: O2SAT 100
[2025-05-31 00:13] LABS: Influenza A QL RT-PCR Negative (Negative); Influenza B QL RT-PCR Negative (Negative); RSV RNA, RT-PCR Negative (Negative); SARS-CoV-2 RNA PCR Negative (Negative)
[2025-05-31 00:16] VITALS: BP 158/65; PULSE 93; RESP 18; O2SAT 99
[2025-05-31] MEDS: ACETAMINOPHEN 500 MG TABLET 1000 MG PO (00:21)
[2025-05-31] MEDS: LACTATED RINGERS 1,000 ML 999 ML IV CONT (00:21)
[2025-05-31] MEDS: cefTRIAXone 2 GM in SODIUM CHLORIDE 0.9% IV 100 ML 200 ML IVPB (00:21)
[2025-05-31 00:31] VITALS: BP 155/66; PULSE 88; RESP 13; O2SAT 99
[2025-05-31 02:39] VITALS: BP 156/65; PULSE 89; RESP 20; O2SAT 100
== END 2025-05-31 02:41 | disposition home or self-care (01) ==
PROVIDERS: Emergency Provider Student in an Organized Health Care Education/Training Program; PCP Family Medicine
DX: N39.0 Urinary tract infection, site not specified (principal); F05 Delirium due to known physiological condition; T46.6X6A Underdosing of antihyperlipidemic and antiarteriosclerotic drugs, initial encounter; T43.226A Underdosing of selective serotonin reuptake inhibitors, initial encounter; Z20.822 Contact with and (suspected) exposure to COVID-19; E78.5 Hyperlipidemia, unspecified; F81.9 Developmental disorder of scholastic skills, unspecified
CPT/HCPCS: 36415; 70450; 71045; 80053; 81001; 85025; 85610; 85730; 87637; 93005; 96365; 99284; A9270; J0696; J7120

== ENCOUNTER 2025-05-31 08:49 | Emergency (ER) | payer MEDICARE, MEDICAID, SELFPAY ==
--- NOTE | ~2025-05-31 | XR_ITS ---
Examination: XR chest 2V Clinical History: syncope Comparison: Chest x-ray [address] chest abdomen pelvis 12/26/2024 Technique: PA and Lateral Findings: Cardiomediastinal silhouette normal size and configuration. Lungs clear. No acute bony abnormality. Chronic right rib fractures. IMPRESSION: 1. No acute cardiopulmonary findings. Reviewed, dictated and finalized at location R.
[2025-05-31 08:44] VITALS: BP 159/67; PULSE 83; RESP 20; TEMP 36.9; O2SAT 100
--- NOTE | 2025-05-31 08:57 | ECG_ITS ---
Test Date: 2025-05-31 08:50:16 Measurements Intervals [place] Rate: 80 P: 51 DC: 143 QRS: 21 QRSD: 95 T: -1 QT: 394 QTc: 456 Interpretive Statements SINUS RHYTHM MODERATE T-WAVE ABNORMALITY, CONSIDER ANTERIOR ISCHEMIA [-0.1+ mV T-WAVE IN V3/V4] Compared to ECG 05/31/2025 00:15:42 T-wave abnormality now present Possible ischemia now present Myocardial infarct finding no longer present Electronically Signed On 05-31-2025 12:03:49 CDT by Junito Dunn M.D.
--- OUTSIDE RECORDS SUMMARY | 2025-05-31 09:14 | XMS_ITS | Clinical Summary ---
Author Organization [place] [address] [facility] Address [address] [place] [address] Care Team Providers Care Costume Rental Clerk Name Role Phone Bart Bettencourt MD Primary Care Provider Brea Sorensen MD, Marino P. Unavailable [phone] Allergies Active Allergy Reactions Criticality Noted Date [...] 09/10/2024 Assessment & Plan (09/10/2024 10:19 AM FINANCIAL SERVICE REP): BMI Follow-up includes: nutrition counseling, exercise counseling, and education provided. Vulvar itching 09/02/2024 Assessment & Plan (09/02/2024 10:22 AM FINANCIAL SERVICE REP): Will treat with nystatin and powder Moderate episode of recurrent major depressive d isorder 09/12/2023 Age-related osteoporosis wit hout current pathological fracture 08/28/2023 Overview (11/12/2024): 2022- -2.7 started fosomax 2024= -2.7 Assessment & Plan (09/02/2024 10:23 AM FINANCIAL SERVICE REP): To bmd To continue fosamax for now Assessment & Plan (11/27/2023 11:20 AM CDT): To continue on the Fosamax How to take was reviewed Will plan to repeat her BMD in 2024 Assessment & Plan (08/28/2023 9:44 AM FINANCIAL SERVICE REP): Doing well on fosamax Will check bones next year Abnormal mammogram of both breasts 08/28/2023 Overview (11/27/2023): 08/2022- bilateral calcifications 2023- Assessment & Plan (11/27/2023 11:20 AM CDT): We discussed that as her last mammogram was negative, she has and she has no current tenderness or palpable masses, I do not think her insurance will cover another mammogram this year. She and her gambling dealer would like to do her next screening mammogram at [facility]. She was asked to call if she develops any interval issues Assessment & Plan (08/28/2023 10:00 AM FINANCIAL SERVICE REP): Will arrange for her to have repeat [...] Gardasil: Assessment & Plan (09/02/2024 10:25 AM FINANCIAL SERVICE REP): I did not do a pap as couldn't get up there Otherwise complete exam done. Assessment & Plan (11/27/2023 10:16 AM CDT): Due in Jul 2024 Assessment & Plan (08/28/2023 10:01 AM FINANCIAL SERVICE REP): Complete exam done Encounter for screening for malignant neoplasm o f colon 06/14/2022 Overview (06/14/2022): Added automatically from request for surgery [id number] Hypertension associated with diabetes 01/05/2022 Assessment & [...] Department Care Team Description 05/28/2025 Results Follow-Up [facility] Care at [address] [address] Cesilia Billy NP Vaginitis panel Vaginal, Urine culture Urine, clean voided 05/27/2025 5:38 PM CDT - 05/27/2025 11:59 PM CDT Hospital Encounter [address] [address] Vaginal itching; Urinary urgency Discharge Disposition: Discharge to home or self care 05/27/2025 5:00 PM CDT Office Visit [facility] Care at [address] [address] Cesilia Billy NP Urinary urgency (Primary Dx); Vaginal itching; Weight loss, unintentional 03/04/2025 10:50 AM CDT Lab [address] [address] Hypertension associated with diabetes (HCC) 03/04/2025 10:15 AM CDT Office Visit [facility] Primary Care at [address] [address] Bart Bettencourt MD Hypertension associated with diabetes [...] on file Legal Sex Female 11:42 AM FINANCIAL SERVICE REP Gender Identity Not on file Sexual Orientation [...] REFLEX TO GENOTYPING Routine 08/22/2022 10:30 AM FINANCIAL SERVICE REP Well woman exam COLONOSCOPY 07/05/2022 10:04 AM FINANCIAL SERVICE REP HEPATITIS C ANTIBODY Routine 01/05/2022 3:40 PM [...] status. Anahy group Not Detected Not Detected [facility] Anahy glabrata/ krusei Not Detected Not Detected [facility] Trichomonas DNA Not Detected Not Detected [facility] Vaginal 05/27/2025 5:38 PM CDT 05/27/2025 8:07 PM CDT Narrative [facility] - 05/27/2025 9:26 PM CDT The CepLifePayid Xpert Xpress MVP test detects DNA targets [...] this test have been verified by the [facility]. Cesilia Billy NP LAB MICROBIOLOGY - GENERAL ORDE RABLES Final Result [place] [address] [address] Department [place] [address] [place] * Urine culture Urine, clean voided (05/27/2025 5:38 PM CDT) Report Final Report: Less than 100,000 colonies/mL (clinically insignificant growth based on current clinical standards) Comment:Testing performed by : [facility], [address] [place]., [address] Organism (CLINICALLY INSIGNIFICANT GROWTH [facility]I Urine, clean voided 05/27/2025 5:38 PM CDT 05/27/2025 10:14 PM CDT Narrative [facility] - 05/29/2025 8:59 AM CDT Testing performed by [facility] Microbiology Laboratory ([phone]) Cesilia Billy NP LAB MICROBIOLOGY - [facility] Final Result Performing Organization Address City/[facility]/ZIP Co de Phone Number [place] [address] [address] Department [place] [address] * POCT urinalysis dipstick (05/27/2025 5:09 PM CDT) Color, Urine, POC Dark Yellow Clarity, ur, POC Clear Clear Glucose, ur, POC Negative Negative Bilirubin, ur, POC Negative Negative Ketones, ur, POC Negative Negative Specific [place], POC 1.020 1.003 - 1.030 Blood, ur, POC Negative Negative pH, ur, POC 5.5 5.0 - 8.0 Protein, ur, POC Negative Negative Urobilinogen, urine, POC 1.0 0.2 - 1.0 mg/dL Nitrite, ur, POC Negative Negative Leukocytes, ur, POC Negative Negative Lot Number [id number] Urine 05/27/2025 5:09 PM CDT Ranita Billy PEST CONTROL WORKER HELPER POINT OF CARE TEST ORDERABLES F inal Result * eGFR (03/04/2025 10:54 AM CDT) Pathologist [facility] eGFR 62 >=60 mL/min/1. 73 m2 [...] Bettencourt MD LAB BLOOD ORDERABLES Final Result [facility] [address] [facility] Department [place] [address] * Differential, auto (03/04/2025 10:54 AM CDT) Pathologist [facility] Neutrophil abs 5.85 1.50 - 6.50 K/cumm Imm gran abs 0.04 0.00 - 0.10 K/cumm [facility] Lymphocyte abs 2.10 0.80 - 3.30 K/cumm [facility] Monocyte abs 0.78 0.20 - 0.80 K/cumm [facility] Eosinophil abs 0.10 0.00 - 0.50 K/cumm [facility] Basophil abs 0.06 0.00 - 0.10 K/cumm [facility] Neutrophil pct 65.6 % [facility] Comment: Interpretive Data Percent cell count reference ranges are not reported, since discordance with absolute values may lead to misinterpretation of CBC data. Current Interpretive Data was last revised on 2017. Imm gran pct 0.4 % [facility] Comment: Interpretive Data Percent cell count reference ranges are not reported, since discordance with absolute values may lead to misinterpretation of CBC data. Current Interpretive Data was last revised on 2017. Lymphocyte pct 23.5 % [facility] Comment: Interpretive Data Percent cell count reference ranges are not reported, since discordance with absolute values may lead to misinterpretation of CBC data. Current Interpretive Data was last revised on 2017. Monocyte pct 8.7 % [facility] Comment: Interpretive Data Percent cell count reference ranges are not reported, since discordance with absolute values may lead to misinterpretation of CBC data. Current Interpretive Data was last revised on 2017. Eosinophil pct 1.1 % [facility] Comment: Interpretive Data Percent cell count reference ranges are not reported, since discordance with absolute values may lead to misinterpretation of CBC data. Current Interpretive Data was last revised on 2017. Basophil pct 0.7 % [facility] Comment: Interpretive Data Percent cell count reference ranges are not reported, since discordance with absolute values may lead to misinterpretation of CBC data. Current Interpretive Data was last revised on 2017. Blood 03/04/2025 10:5 4 AM CDT 03/04/2025 1:53 PM CDT Bart Bettencourt MD LAB BLOOD ORDERABLES Final Result [facility] [address] [facility] Department [place] [address] * (ABNORMAL) CBC with auto differential (03/04/2025 10:54 AM CDT) WBC 8.93 3.80 - 9.90 K/cumm Hgb 12.6 11.9 - 15.5 g/dL [facility] Hct 39.3 35.6 - 45.5 % [facility] Plt 337 150 - 400 K/cumm [facility] MPV 10.4 9.1 - 12.3 fL [facility] RBC 4.20 3.90 - 5.20 M/cumm [facility] MCV 93.6 81.3 - 96.4 fL [facility] MCH 30.0 27.1 - 33.3 pg [facility] MCHC 32.1(L) 32.3 - 35.7 g/dL [facility] RDW CV 12.5 11.1 - 14.9 % [facility] RDW SD 42.5 35.7 - 48.1 fL [facility] NRBC abs 0.00 0.00 - 0.01 K/cumm [facility] Blood 03/04/2025 10:5 4 AM CDT 03/04/2025 1:53 PM CDT Bart Bettencourt MD LAB BLOOD ORDERABLES Final Result Performing Organization Address [facility] Phone Number [address] [place] [address] * (ABNORMAL) Hemoglobin A1c (03/04/2025 10:54 AM CDT) Hgb A1C 6.4(H) 4.0 - 5.6 % Estimated Average Glucose 137 mg/dL [facility] Comment: The ADA recommends reporting an estimated Average Glucose (eAG) with all Hemoglobin A1c results using the equation derived from a study of 507 normal and diabetic adults. Minority populations were underrepresented and children were not included. (Diabetes Care 31:6977-4134, 2008). The eAG is not equivalent to a fasting glucose. Blood 03/04/2025 10:5 4 AM CDT 03/04/2025 1:53 PM CDT Bart Bettencourt MD LAB BLOOD ORDERABLES Final Result Performing Organization Address [facility] Co de Phone Number [address] [place] [address] * (ABNORMAL) Lipid panel (03/04/2025 10:54 AM [...] MD LAB BLOOD ORDERABLES Final Result [facility] [address] [facility] Department [place] [address] * Comprehensive metabolic panel (03/04/2025 10:54 AM CDT) Sodium 138 135 - 145 mmol/L Potassium, pl 4.0 3.3 - 4.9 mmol/L [facility] Chloride 102 97 - 110 mmol/L [facility] CO2 25 22 - 32 mmol/L [facility] Anion gap 11 2 - 15 mmol/L [facility] BUN 22 6 - 25 mg/dL [facility] Creatinine 1.01 0.60 - 1.10 mg/dL [facility] Glucose 121 70 - 199 mg/dL [facility] Comment: Interpretive Data Fasting glucose >/= 126 [...] 2022. Calcium 9.7 8.5 - 10.3 mg/dL [facility] Bilirubin, total 0.5 0.1 - 1.2 mg/dL [facility] Protein, pl 7.3 6.5 - 8.5 g/dL [facility] Albumin 4.4 3.5 - 5.0 g/dL [facility] Alk phos 74 40 - 130 Units/L [facility] ALT 22 7 - 45 Units/L [facility] AST 31 10 - 45 Units/L [facility] Blood 03/04/2025 10:5 4 AM CDT 03/04/2025 1:53 PM CDT Bart Bettencourt MD LAB BLOOD ORDERABLES Final Result [facility] [address] [facility] Department [place] [address] * Albumin Creatinine Ratio, Urine (12/10/2024 9:54 AM CDT) Albumin Ur <12.0 mg/L Comment: Interpretive Data No reference range established. Current interpretive data was last revised 2018. Creatinine Ur 49.0 mg/dL [facility] Comment: Interpretive Data No reference range established. Current interpretive data was last revised 2018. Albumin Creatinine Ratio, Ur <24 1 - 29 mg/g [facility] Urine 12/10/2024 9:54 AM CDT 12/10/2024 4:43 PM CDT Narrative [facility] - 12/10/2024 5:30 PM CDT PLEASE DRAW 12/08 A1C WELL us Bart Bettencourt MD LAB URINE ORDERABLES Final Result [facility] [address] [facility] Department [place] [address] * Screening Mammogram Bilateral W Kenny (10/28/2024 [...] given history of: screening for osteoporosis Screening Inspector Paper Products/Model: InTouch [employer] Discovery SL (S/N [id number]) Facility LSC value of 0.022 for the [...] Aidan Jones M.D. MF: EARLINE Report ID: [id number] Reading Location: [id number] Procedure Note Aidan Jones MD - 10/29/2024 EXAM DESCRIPTION: DEXA AXIAL SKELETON BONE DENSITY 1 OR MORE SITES REASON FOR STUDY: 64 y/o year old F with given history of: screeningfor osteoporosis Screening Inspector Paper Products/Model: Advanced-Tec (S/N [id number]) Facility LSC value of 0.022 for the [...] Aidan Jones M.D. MF: EARLINE Report ID: [id number] Reading Location: [place] [address] Rosa Maria Romero MD IM DXA PROCEDURES Final Result * Pap and High Risk HPV, reflex to Genotyping (08/22/2022 10:30 AM FINANCIAL SERVICE REP) CLINICAL INFORMATION: [facility] Comment:None given LMP [facility] [email or web address] [facility] Comment:None given Previous Pap [facility] Comment:None given Prev. Bx [facility] [email or web address] [facility] Comment:None given SOURCE: [facility] [email or web address] [facility] Comment:Cervix, Endocervix Pap, specimen adequacy [facility] Comment:SATISFACTORY FOR VIKKI LUATION HPV interp [facility] Comment: Negative for intraepithelial lesion or malignancy. Atrophic pattern; predominantly parabasal cells Restaurant Shift Leader [facility] Comment: JAF, CT(ASCP) CT Screening Location: [place] [address] [place] [address] Comment [facility] [email or web address] [facility] Comment: EXPLANATORY NOTE: The Pap is a [...] High Risk E6/E7 Not Detected NOT DETECTED [employer] [facility]Ronit [facility] Comment: Not Detected High Risk HPV types (16,18,31,33,35,39,45,51,52, 56,58,59,66,68) were not detected. Other HPV types which cause anogenital lesions may be present. The significance of the other types of HPV in malignant processes has not been established. Methodology: Real Time PCR Thin prep 08/22/2022 10:3 0 AM FINANCIAL SERVICE REP 08/23/2022 5:37 AM FINANCIAL SERVICE REP Rosa Maria Romero MD LAB CYTOLOGY ORDERA BLES Final Result [facility] [address] [place] [address] [facility]/[place] [address] [place] [address] * COLONOSCOPY (07/05/2022 10:04 AM FINANCIAL SERVICE REP) Anatomical Region Laterality Modality Other Narrative Procedure Note Anthony Pichardo MD - 07/05/2022 10:04 AM CST [facility] Patient Name: Supriya Lauren Procedure Date: 07/05/2022 10:04 AM Date of : 1960 Admit Type: Outpatient Age: 61 Gender: Female Note Status: Finalized Attending MD: Anthony Pichardo M.D. Procedure Date: 07/05/2022 Procedure: Colonoscopy Indications: Screening for colorectal malignant neoplasm, Thisis the patient's first colonoscopy Providers: Anthony Pichardo M.D., Neda Cohen (AnesthesiaStaff), Venus Michel RN, Lorene Palacios, Skiver Machine Operator Referring MD: Bart Bettencourt M.D. Medicines: Monitored [...] bowel preparation was evaluated using the BBPS ([place] Bowel Preparation Scale) with scores of: Right [...] or abscess without bleeding CPT copyright 2020 [employer]. All rights reserved. The codes documented in this report are preliminary and upon jumbo operator reviewmay be revised to meet current compliance [...] GENERAL ORDERABLES Final Result Performing Organization Address City/State/[facility] Phone Number [place] [address] [facility] Department [place] [address] from Last 3 Months or Most Recently Relevant to Health Maintenance Insurance [facility] MEDIC[facility] Care Teams Costume Rental Clerk Relationship Specialty Start Date End Date Bart Bettencourt MD [address] [place] [address] PCP - General Family Medicine 01/05/22 Marino Guidry Jr., MD [address] [place] [address] Consulting Physician Cardiovascular Disease 01/05/22
--- OUTSIDE RECORDS SUMMARY | 2025-05-31 09:14 | XMS_ITS | Encounter Summary ---
Author Organization [facility] Address [address] [place] [address] Care Team Providers Care Activity Assistant Name Role Phone Bart Bettencourt MD Primary Care Provider [phone] Brea Sorensen MD, Marino Vance. Unavailable [phone] Encounter Details Date Type Department Care Team (Late st Contact Info) Description 05/28/2025 Results Follow-Up [facility] Care at [place] [address] [place] [address] Cesilia Billy NP [address] [facility] [address] [place] [address] Vaginitis panel Vaginal, Urine culture [...] on file Legal Sex Female 11:42 AM SEWER MAINTENANCE SUPERVISOR Gender Identity Not on file Sexual Orientation [...] on filedocumented in this encounter Care Teams Activity Assistant Relationship Specialty Start Date End Date Bart Bettencourt MD [address] [place] [address] PCP - General Family Medicine 01/05/22 Marino Guidry Jr., MD [address] [place] [address] Consulting Physician Cardiovascular Disease 01/05/22 documented as of this encounter
[2025-05-31 09:24] LABS: Hematocrit 36.8 % (37.0-47.0); Hemoglobin 11.9 g/dL (12.0-15.0); Immature Granulocyte Percent A 0.3 % (0-0.5); Lymphocytes Absolute Auto 1.82 K/mm3 (0.9-3.2); Mean Corpuscular HGB Conc 32.3 g/dl (32-36); Mean Corpuscular Hemoglobin 29.0 pg (26-34); Mean Corpuscular Volume 89.8 fl (80-100); Nucleated Red Blood Cells Absolute Auto 0.000 K/mm3 (0.0-0.012); Nucleated Red Blood Cells Perc 0.0 % (0.0-0.2); Platelet Count Result 283 k/mm3 (150-375); Red Blood Count 4.10 M/mm3 (4.2-5.4); White Blood Count 7.9 K/mm3 (4.5-10.0)
[2025-05-31 09:39] LABS: Alanine Aminotransferase 19 U/L (6-35); Albumin Level 4.3 g/dL (3.5-5.1); Alkaline Phosphatase 59 U/L (38-126); Anion Gap 9 mmol/L (4-12); Aspartate Amino Transferase 28 U/L (14-36); Bilirubin,Total 0.8 mg/dL (0.2-1.3); Blood Urea Nitrogen 13 mg/dL (7-17); Calcium 9.3 mg/dL (8.4-10.2); Carbon Dioxide 25 mmol/L (22-30); Chloride 104 mmol/L (98-107); Estimated CRCL calculation 47 ml/min; Estimated Glomerular Filt Rate > 60; Glucose 106 mg/dL (65-110); Potassium 4.0 mmol/L (3.4-5.0); Sodium 138 mmol/L (137-145); Total Protein 7.2 g/dL (6.3-8.2)
[2025-05-31 09:50] LABS: Troponin I 0.019 ng/mL (0.000-0.034)
[2025-05-31 09:52] VITALS: BP 151/63; BP 153/68; BP 158/78; PULSE 80; PULSE 91; PULSE 94
[2025-05-31] MEDS: SODIUM CHLORIDE 0.9% IV 1,000 ML 999 ML IV CONT (09:57)
[2025-05-31] MEDS: MECLIZINE HCL 12.5 MG TABLET PO (09:57)
[2025-05-31 11:02] VITALS: BP 159/77; PULSE 82; RESP 20; O2SAT 100
--- NOTE | 2025-05-31 11:27 | ED_ITS ---
HPI - General Adult General Chief complaint: Syncope Stated complaint: syncopal episode Time Seen by Provider: 05/31/25 08:59 History of Present Illness HPI narrative: Patient is a 64-year-old female who presents ER after having an episode at her group living setting where she put her head down and then woke up 30 seconds later. They are unsure if she had a syncopal event. Patient apparently was out last night at a Halloween parade and had wandered off and had a beer and then was diagnosed with urinary tract infection here. Apparently she had a late night and went to bed around 3:00 a.m.. Patient reports she does have some dizziness with turning her head but otherwise is without significant complaint. Related Data Allergies Allergy/AdvReac Type Severity Reaction Status Date / Time No Known Allergies Allergy Verified 05/31/25 09:02 Review of Systems 2 Review of Systems: All systems reviewed & are unremarkable except as noted in HPI and below Constitutional: Constitutional: Reports no additional constitutional complaints Cardiovascular: Cardiovascular: Reports no additional cardiovascular complaints Respiratory: Respiratory: Reports no additional respiratory complaints Gastrointestinal: Gastrointestinal: Reports no additional gastrointestinal complaints Musculoskeletal: Musculoskeletal: Reports no additional musculoskeletal complaints [facility] Past Medical History Medical History (Updated 05/31/25 @ 11:43 by Sushant Leija MD) Diabetes Hyperlipidemia Hypertension Exam 2 Narrative: GENERAL: Well-appearing, well-nourished, and in no acute distress. HEAD: Normocephalic, atraumatic. EYES: PERRL and EOMI. ENT: Mucous membranes moist. Large amount of cerumen bilaterally, after removal TMs normal bilaterally. Patient can hear better CHEST: Clear to auscultation. No respiratory distress. HEART: Regular rate and rhythm. Normal peripheral pulses. ABDOMEN: Soft, nontender, nondistended. EXTREMITIES: Normal range of motion. No edema. SKIN: Warm, dry, no rash. NEURO: Alert and oriented x3. PSYCH: Normal mood and affect. Course Course Emergency Course: Unremarkable evaluation. Evaluated for possible syncope. Labs from last night reviewed. Patient did receive IV antibiotics are continuing to be effective in treatment. Recommend filling home antibiotics. I do not feel patient requires hospitalization. Patient is pleasant and cooperative. Vital Signs Vital signs: Vital Signs Temperature 98.4 F 05/31/25 08:44 Pulse Rate 83 05/31/25 08:44 Respiratory Rate 20 05/31/25 08:44 Blood Pressure 159/67 H 05/31/25 08:44 Pulse Oximetry 100 05/31/25 08:44 Oxygen Delivery Room Air 05/31/25 08:44 Temperature 98.4 F 05/31/25 08:44 Pulse Rate 82 05/31/25 11:02 Respiratory Rate 20 05/31/25 11:02 Blood Pressure 159/77 H 05/31/25 11:02 Pulse Oximetry 100 05/31/25 11:02 Oxygen Delivery Room Air 05/31/25 08:44 Medical Decision Making Vital Signs Vital Signs: Vital Signs Temperature 98.4 F 05/31/25 08:44 Pulse Rate 83 05/31/25 08:44 Respiratory Rate 20 05/31/25 08:44 Blood Pressure 159/67 H 05/31/25 08:44 Pulse Oximetry 100 05/31/25 08:44 Oxygen Delivery Room Air 05/31/25 08:44 Temperature 98.4 F 05/31/25 08:44 Pulse Rate 82 05/31/25 11:02 Respiratory Rate 20 05/31/25 11:02 Blood Pressure 159/77 H 05/31/25 11:02 Pulse Oximetry 100 05/31/25 11:02 Oxygen Delivery Room Air 05/31/25 08:44 Lab Data Lab results reviewed: Yes I reviewed the patient's lab results. 05/31/25 09:17 05/31/25 09:17 Labs: Lab Results 05/31/25 05/31/25 Range/Units 09:17 09:17 WBC 7.9 (4.5-10.0) K/mm3 RBC 4.10 L (4.2-5.4) M/mm3 Hgb 11.9 L (12.0-15.0) g/dL Hct 36.8 L (37.0-47.0) % MCV 89.8 (80-100) fl MCH 29.0 (26-34) pg MCHC 32.3 (32-36) g/dl RDW 13.2 (11.5-14.5) % Plt Count 283 (150-375) k/mm3 MPV 9.7 (7.4-10.4) fl Immature Gran % (Auto) 0.3 (0-0.5) % Neut % (Auto) 65.6 (45.5-73.1) % Lymph % (Auto) 23.1 (18.3-44.2) % [place] % (Auto) 10.2 H (2.6-8.5) % Eos % (Auto) 0.3 (0-4.4) % Baso % (Auto) 0.5 (0.2-1.2) % Lymph # (Auto) 1.82 (0.9-3.2) K/mm3 [place] # (Auto) 0.8 H (0.1-0.6) K/mm3 Eos # (Auto) 0.0 (0-0.3) K/mm3 Baso # (Auto) 0.0 (0.0-0.1) K/mm3 Abs Immat Gran (auto) 0.02 (0.00-0.031) K/mm3 Absolute Neuts (auto) 5.2 (1.3-6.7) K/mm3 Absolute Nucleated RBC 0.000 (0.0-0.012) K/mm3 Nucleated RBC % 0.0 (0.0-0.2) % Sodium 138 (137-145) mmol/L Potassium 4.0 (3.4-5.0) mmol/L Chloride 104 (98-107) mmol/L Carbon Dioxide 25 (22-30) mmol/L Anion Gap 9 (4-12) mmol/L BUN 13 (7-17) mg/dL Creatinine 0.92 (0.7-1.0) mg/dL Estim Creat Clear Calc 47 ml/min Estimated GFR > 60 (59 - ) Glucose 106 (65-110) mg/dL Calcium 9.3 (8.4-10.2) mg/dL Total Bilirubin 0.8 (0.2-1.3) mg/dL AST 28 (14-36) U/L ALT 19 (6-35) U/L Alkaline Phosphatase 59 (38-126) U/L Troponin I 0.019 Cancelled (0.000-0.034) ng/mL Total Protein 7.2 (6.3-8.2) g/dL Albumin 4.3 (3.5-5.1) g/dL Imaging Data Radiologist's impression: ITS Impressions Chest X-Ray 05/31/25 10:01 IMPRESSION: 1. No acute cardiopulmonary findings. ECG Data EKG #1: ECG completion date: 05/31/25 ECG completion time: 08:50 EKG Interpretation: normal rate (80), sinus rhythm, non-specific ST changes, normal QRS and normal QT Discharge Plan Discharge Clinical Impression: UTI (urinary tract infection), Excessive cerumen in both ear canals Patient Disposition: Home Condition: Stable Instructions: Antibiotic Form Additional Instructions: You had an unremarkable evaluation. Her blood work was normal. Continue to take the oral antibiotics that were prescribed to you to treat a urinary tract infection. He received these last night your in the ER. Return to the ER if you have fever over 100.4? F, you suffered a new injury, or you have additional concerns. Patient Language: Australian Prescriptions: No Action cephalexin 500 mg capsule 500 mg PO Q8H 7 Days Qty: 21 0RF cephalexin 500 mg capsule 500 mg PO Q12H 7 Days Qty: 14 0RF Follow-up/Referrals: Sg,Bart Bertrand MD [Primary Care Provider, Unknown] - 1 Week
== END 2025-05-31 12:03 | disposition home or self-care (01) ==
PROVIDERS: Emergency Provider Emergency Medicine; PCP Family Medicine
DX: N39.0 Urinary tract infection, site not specified (principal); H61.23 Impacted cerumen, bilateral; I10 Essential (primary) hypertension; E11.9 Type 2 diabetes mellitus without complications; E78.5 Hyperlipidemia, unspecified; R94.31 Abnormal electrocardiogram [ECG] [EKG]
CPT/HCPCS: 36415; 69209; 71046; 80053; 84484; 85025; 93005; 96360; 99284; A9270; J7030

== ENCOUNTER 2025-06-02 22:52 | Observation (INO) | payer MEDICARE, MEDICAID, SELFPAY ==
--- NOTE | ~2025-06-02 | CT_ITS ---
CT abdomen pelvis w con Clinical History: gi bleed? . Comparison: CT chest abdomen and pelvis 12/26/2024 Technique: Axial images lung bases to symphysis pubis 100 mL Omnipaque 350 Coronal, sagittal reformats CT images acquired with automatic exposure control for dose reduction DLP: 744 mGy-cm Findings: Lung bases: 2 mm nodule lateral right lower lobe, no surveillance indicated given small size. Minimal scattered atelectasis. Visualized heart and pericardium: Unremarkable. Liver: Steatosis. Enlarged. Gallbladder: Unremarkable. Spleen: Unremarkable. Pancreas: Unremarkable. Adrenal glands: Unremarkable. Kidneys: Right kidney- No hydronephrosis. No renal stones. Left kidney- No hydronephrosis. No renal stones. Small cyst. Distal esophagus/stomach: Moderate hiatal hernia. A few small associated nodes. Small bowel loops: Normal caliber and wall thickness. Small proximal duodenal diverticulum. Colon: Diverticula. Normal caliber and wall thickness. Normal appendix, right upper quadrant subhepatic. Nodes: No enlarged nodes. Peritoneum: No ascites. No free air. Urinary bladder: Distended. Uterus: Unremarkable. Adnexa: No masses. Bones: No acute bony abnormality. Soft tissues: Unremarkable. Aorta: No aneurysm or dissection. Atherosclerotic disease. IVC: Unremarkable. Main portal vein/SMV/splenic vein: Patent. IMPRESSION: 1. No acute findings. Reviewed, dictated and finalized at location R. L RUNNER HELPER IMPRESSION: 1. No acute findings.
--- NOTE | ~2025-06-02 | CT_ITS ---
EXAMINATION: CTA brain carotid DATE: 06/02/2025 23:06 INDICATION: Altered mental status. TECHNIQUE: Computed tomographic angiography (CTA) of the head was performed with 100 mL Omnipaque-350 intravenous contrast. CTA of the neck was performed with intravenous contrast. Automated exposure control and iterative reconstruction technique were employed. The dose-length product was 1042.93 mGy-cm. Maximum intensity projection and volume rendered 3D-reconstructions were created by the technologist on a separate workstation. COMPARISON: Head CT 06/02/2025 FINDINGS: HEAD CTA: There are scattered areas of low attenuation in the cerebral white matter. There is no intracranial hemorrhage, acute infarction, or abnormal intracranial mass lesion. The ventricles are normal in size. There are likely changes of ocular lens replacement surgeries. There is mild mucosal thickening in the paranasal sinuses. The mastoid air cells are normal. Left vertebral artery is dominant. There is no significant stenosis of basilar artery or the posterior cerebral arteries. The posterior communicating arteries are normal. There is no significant stenosis of the intracranial internal carotid arteries or anterior or middle cerebral arteries. Anterior communicating artery is normal. There is no aneurysm. NECK CTA: There is a 4 mm nodule in right lung lower lobe, likely benign. There is a 4 mm nodule in the thyroid, likely not clinically significant. There are no pathologically enlarged lymph nodes. There is no significant stenosis of the vertebral arteries. There is plaque in the proximal internal carotid arteries. There is 31% stenosis of the proximal right internal carotid artery relative to normal distal artery lumen diameter (NASCET criteria). There is 0% stenosis of the proximal left internal carotid artery relative to normal distal artery lumen diameter. There is moderate cervical spondylosis. IMPRESSION: 1. Moderate nonspecific cerebral white matter disease, which likely represents chronic small vessel ischemic disease. 2. No aneurysm or significant intracranial arterial stenosis. 3. 31% stenosis of the proximal right internal carotid artery relative to normal distal artery lumen diameter (NASCET criteria). 4. 0% stenosis of the proximal left internal carotid artery relative to normal distal artery lumen diameter. Reviewed, dictated and finalized at location E. DIRECTOR IMPRESSION: 1. Moderate nonspecific cerebral white matter disease, which likely represents chronic small vessel ischemic disease. 2. No aneurysm or significant intracranial arterial stenosis. 3. 31% stenosis of the proximal right internal carotid artery relative to al l distal artery lumen diameter (NASCET criteria). 4. 0% stenosis of the proximal left internal carotid artery relative to normal distal artery lumen diameter.
--- NOTE | ~2025-06-02 | XR_ITS ---
Examination: XR chest 1V portable Clinical History: ams Comparison: 05/31/2025 Technique: Portable AP Findings: Heart size normal. Lungs clear. No acute bony abnormality. Chronic right rib fractures. IMPRESSION: 1. No acute cardiopulmonary findings given portable technique. Reviewed, dictated and finalized at location R. NURSE SPEC
--- NOTE | ~2025-06-02 | MR_ITS ---
EXAMINATION: MR brain/brain stem wo/w con DATE: 06/03/2025 16:52 INDICATION: Confusion TECHNIQUE: Magnetic resonance imaging (MRI) of the brain and brainstem was performed without and with 17 mL Multihance intravenous contrast. Sequences included sagittal and axial T1-weighted SE, axial diffusion-weighted FS SE, axial 3D SWAN, axial T2-weighted FLAIR, and axial T2-weighted FSE. Postcontrast axial, sagittal and coronal T1-weighted SE was obtained. Apparent diffusion coefficient (ADC) maps were created. COMPARISON: Head CT and CT angiogram dated 06/02/2025 FINDINGS: There are no areas of restricted diffusion to suggest acute infarction. No intracranial hemorrhage or abnormal intracranial mass lesion. There are scattered areas of nonspecific increased T2-weighted signal intensity in the cerebral white matter, predominantly involving the deep and periventricular whi te matter. There are no intraparenchymal signal abnormalities seen on the other pulse sequences. The ventricles are symmetric and normal in size. There are no abnormal extra-axial fluid collections. Flow voids are seen in the cerebral arteries on the T2-weighted sequences consistent with their expected patency. Changes of bilateral intraocular lens replacement. Visualized orbits and soft tissues are unremarkable. There are no areas of abnormal enhancement on the post contrast images. IMPRESSION: 1. No acute intracranial process or abnormally enhancing brain lesions. 2. Moderate scattered nonspecific white matter T2 hyperintensity consistent with chronic small vessel ischemic disease. Reviewed, dictated and finalized at location A. OL TREASURER IMPRESSION: 1. No acute intracranial process or abnormally enhancing brain lesions. 2. Moderate scattered nonspecific white matter T2 hyperintensity consistent wit h chronic small vessel ischemic disease.
--- NOTE | ~2025-06-02 | CT_ITS ---
EXAMINATION: CT brain wo con DATE: 06/02/2025 23:04 INDICATION: Anisocoria. Altered mental status. TECHNIQUE: Computed tomography (CT) of the head was performed without intravenous contrast. The mA was adjusted according to patient size. Iterative reconstruction technique was employed. The dose-length product was 605.33 mGy-cm. COMPARISON: Head CT 05/30/2025 FINDINGS: There are scattered areas of low attenuation in the cerebral white matter. There is no intracranial hemorrhage, acute infarction, or abnormal intracranial mass lesion. The ventricles are normal in size. There are likely changes of ocular lens replacement surgeries. There is mild mucosal thickening in the paranasal sinuses. The mastoid air cells are normal. IMPRESSION: 1. Moderate nonspecific cerebral white matter disease, which likely represents chronic small vessel ischemic disease. Reviewed, dictated and finalized at location E. H FILLER HAND
[2025-06-02 22:54] VITALS: PULSE 82; RESP 20; TEMP 36.6; O2SAT 100
--- NOTE | 2025-06-02 22:54 | ECG_ITS ---
Test Date: 2025-06-02 23:17:45 Measurements Intervals [place] Rate: 82 P: 35 MN: 141 QRS: -20 QRSD: 98 T: -12 QT: 383 QTc: 450 Interpretive Statements SINUS RHYTHM Poor R wave progression Electronically Signed On 06-03-2025 06:37:46 [employer]OGHURT MAKER by Alexia Ballard M.D.
--- NOTE | 2025-06-02 23:01 | ED.AMS ---
HPI - Altered Mental Status General Chief Complaint: Altered Mental Status Stated Complaint: AMS/HTN; Unequal pupils History of Present Illness HPI narrative: 64-year-old female with history of intellectual delay, hyperlipidemia. Patient presents to the emergency department today with increased confusion. Patient was seen and evaluated by myself 4 days ago and then by another provider in the ER afterwards 3 days ago. Patient presents as she was having increased confusing and wandering. Supposedly per EMS report patient was wandering into a public bathroom and thought she was in her own bathroom at home. Recently diagnosed with a urinary tract infection and on and the biotics. She was seen here on the 1st with dizziness and possible syncopal episode and discharged after cerumen disimpaction in both ears. She was seen 4 days ago with unremarkable lab CT scan and workup is showing UTI. Today she is not any acute distress and otherwise appears well. She has no lateralizing deficits and a stroke scale is 0 on the bedside assessment by EMS and myself. Given concerns for increasing confusion she was sent for CT head and CT angiography of the head neck to rule out other potential intracranial causes. Patient denies any symptoms such as headache or vision changes presently. Noted back pain, abdominal pain, fever, chills. She is not sure if she has been taking her antibiotic but also has baseline altered mental status for intellectual disability so will have to wait for her caregiver to arrive for collateral formation. Related Data Home Medications ?Medication ?Instructions ?Recorded ?Confirmed ?Last Taken ?Type atorvastatin 20 mg tablet 20 mg PO DAILY 06/03/25 06/03/25 06/02/25 History brimonidine 0.2 % eye drops 1 drp EACH EYE DAILY 06/03/25 06/03/25 06/02/25 History celecoxib 200 mg capsule 200 mg PO DAILY 06/03/25 06/03/25 06/02/25 History dorzolamide 2 % eye drops 1 drp EACH EYE DAILY 06/03/25 06/03/25 06/02/25 History escitalopram oxalate 10 mg tablet 10 mg PO DAILY 06/03/25 06/03/25 06/02/25 History fenofibrate nanocrystallized 48 mg 48 mg PO DAILY 06/03/25 06/03/25 06/02/25 History tablet ferrous sulfate 325 mg (65 mg 325 mg PO DAILY 06/03/25 06/03/25 06/02/25 History iron) tablet (FeroSul) latanoprost 0.005 % eye drops 1 drp EACH EYE QAM 06/03/25 06/03/25 06/02/25 History losartan 25 mg tablet 25 mg PO DAILY 06/03/25 06/03/25 06/02/25 History metformin 500 mg tablet,extended 500 mg PO DAILY 06/03/25 06/03/25 06/02/25 History release 24 hr omeprazole 20 mg capsule,delayed 20 mg PO DAILY 06/03/25 06/03/25 06/02/25 History release timolol maleate 0.5 % eye drops 1 drp EACH EYE DAILY 06/03/25 06/03/25 06/02/25 History Allergies Allergy/AdvReac Type Severity Reaction Status Date / Time No Known Allergies Allergy Verified 06/03/25 06:08 Review of Systems Review of Systems: As reviewed above in [facility] Past Medical History Medical History Diabetes Hyperlipidemia Hypertension Social History Social History Smoking status: Never smoker Alcohol intake: never Substance use: never Spiritual care concerns: No Exam Narrative: GENERAL: [Well-appearing, well-nourished, and in no acute distress.] HEAD: [Normocephalic, atraumatic.] EYES: Pupils are 4 mm and reactive to light, right pupil appears to have been previously operated on on closer inspection, extraocular movements are intact. ENT: Nares clear, no rhinorrhea or epistaxis. Mucous membranes moist. NECK: Supple. CHEST: [Clear to auscultation. No respiratory distress.] HEART: [Regular rate and rhythm]. No murmur heard. [Normal peripheral pulses.] ABDOMEN: [Soft, nondistended], [nontender], [No rigidity or guarding] EXTREMITIES: Normal range of motion. [No edema.] SKIN: Warm, dry, no rash. NEURO: No focal deficits. Moving all extremities. Symmetric strength and no weakness in the arms or legs. No slurring speech or facial asymmetries. No ataxia. Answering all questions appropriately. Alert oriented x3 presently. PSYCH: Pleasant affect Course Vital Signs Vital signs: Vital Signs Temperature 36.6 C 06/02/25 22:54 Pulse Rate 82 06/02/25 22:54 Respiratory Rate 20 06/02/25 22:54 Pulse Oximetry 100 06/02/25 22:54 Temperature 36.6 C 06/02/25 22:54 Pulse Rate 89 06/03/25 05:49 Respiratory Rate 16 06/03/25 05:49 Blood Pressure 115/75 06/03/25 05:49 Pulse Oximetry 94 06/03/25 05:49 MDM - Altered Mental Status MDM Narrative Medical decision making narrative: 64-year-old female with history of intellectual delay, hyperlipidemia. Patient presents to the emergency department today with increased confusion. Patient was seen and evaluated by myself 4 days ago and then by another provider in the ER afterwards 3 days ago. Patient presents as she was having increased confusing and wandering. Supposedly per EMS report patient was wandering into a public bathroom and thought she was in her own bathroom at home. Recently diagnosed with a urinary tract infection and on and the biotics. She was seen here on the 1st with dizziness and possible syncopal episode and discharged after cerumen disimpaction in both ears. She was seen 4 days ago with unremarkable lab CT scan and workup is showing UTI. Today she is not any acute distress and otherwise appears well. She has no lateralizing deficits and a stroke scale is 0 on the bedside assessment by EMS and myself. Given concerns for increasing confusion she was sent for CT head and CT angiography of the head neck to rule out other potential intracranial causes. Patient denies any symptoms such as headache or vision changes presently. Noted back pain, abdominal pain, fever, chills. She is not sure if she has been taking her antibiotic but also has baseline altered mental status for intellectual disability so will have to wait for her caregiver to arrive for collateral formation. No focal deficits. Moving all extremities. Symmetric strength and no weakness in the arms or legs. No slurring speech or facial asymmetries. No ataxia. Answering all questions appropriately. Alert oriented x3 presently. Patient does have 4 mm pupils bilaterally in the right pupil appears to have been previously operated on confirmed by EMS report. Patient likely just has cognitive decline and delirium from urinary tract infection but will have to rule out other potential causes as this is a repeat evaluation for same complaint. CT head and CT angiography ordered. Laboratory studies and repeat urinalysis ordered. Point of care glucose unremarkable. Patient placed on ekg monitor. CT scans were unremarkable. No signs of hemorrhage aneurysm dissection or clot. No interval change compared to prior CTs. Patient re-evaluated and doing well. No acute complaints but family arrived to bedside states she is altered and confused acting inappropriately wandering around the house and leaving the facility. She is not aware of her surroundings and hallucinating things. They are requesting further workup. Broad workup and laboratory studies were largely unrevealing. She recently did have a UTI which can cause some acute delirium so she was again treated with Rocephin. Will discuss with hospitalist for admission for continued inpatient workup. Hospitalist accepted the patient to the med surge unit at this time for further evaluation and treatment of her mental status changes. Did recommend a CT scan abdomen pelvis for potential GI bleeding as she has had some dark stools lately. This was obtained and unremarkable. Patient transported upstairs. Medical Records Attestation: I reviewed the patient's medical records. Lab Data Attestation: I reviewed the patient's lab results. 06/02/25 23:08 06/02/25 23:09 Labs: Lab Results 06/02/25 06/02/25 06/03/25 Range/Units 23:08 23:09 02:21 WBC 8.7 (4.5-10.0) K/mm3 RBC 4.01 L (4.2-5.4) M/mm3 Hgb 11.8 L (12.0-15.0) g/dL Hct 36.1 L (37.0-47.0) % MCV 90.0 (80-100) fl MCH 29.4 (26-34) pg MCHC 32.7 (32-36) g/dl RDW 13.2 (11.5-14.5) % Plt Count 292 (150-375) k/mm3 MPV 10.1 (7.4-10.4) fl Immature Gran % (Auto) 0.5 (0-0.5) % Neut % (Auto) 54.4 (45.5-73.1) % Lymph % (Auto) 33.1 (18.3-44.2) % Coke % (Auto) 10.7 H (2.6-8.5) % Eos % (Auto) 0.8 (0-4.4) % Baso % (Auto) 0.5 (0.2-1.2) % Lymph # (Auto) 2.89 (0.9-3.2) K/mm3 Coke # (Auto) 0.9 H (0.1-0.6) K/mm3 Eos # (Auto) 0.1 (0-0.3) K/mm3 Baso # (Auto) 0.0 (0.0-0.1) K/mm3 Abs Immat Gran (auto) 0.04 H (0.00-0.031) K/mm3 Absolute Neuts (auto) 4.8 (1.3-6.7) K/mm3 Absolute Nucleated RBC 0.000 (0.0-0.012) K/mm3 Nucleated RBC % 0.0 (0.0-0.2) % PT 12.7 (11.1-14.7) Seconds INR 0.9 APTT 28.2 (22.3-36.8) Seconds Sodium 131 L (137-145) mmol/L Potassium 3.8 (3.4-5.0) mmol/L Chloride 99 (98-107) mmol/L Carbon Dioxide 24 (22-30) mmol/L Anion Gap 8 (4-12) mmol/L BUN 5 L D (7-17) mg/dL Creatinine 0.69 L (0.7-1.0) mg/dL Estim Creat Clear Calc 72 ml/min Estimated GFR > 60 (59 - ) Glucose 106 (65-110) mg/dL Calcium 9.1 (8.4-10.2) mg/dL Total Bilirubin 0.6 (0.2-1.3) mg/dL AST 35 (14-36) U/L ALT 18 (6-35) U/L Alkaline Phosphatase 63 (38-126) U/L Troponin I < 0.012 (0.000-0.034) ng/mL Total Protein 7.0 (6.3-8.2) g/dL Albumin 4.2 (3.5-5.1) g/dL Urine Color Yellow (Yellow) Urine Appearance Clear (Clear) Urine pH 7.0 (5.0-9.0) Ur Specific [place] 1.013 (1.001-1.035) Urine Protein Negative (Negative) mg/dL Urine Glucose (UA) Negative (Negative) mg/dL Urine Ketones Negative (Negative) mg/dL Ur Blood (Man) Negative (Negative) Urine Nitrate Negative (Negative) Urine Bilirubin Negative (Negative) Urine Urobilinogen 0.2 (<2.0) mg/dL Leukocyte Esterase Rfl Negative (Negative) DIANNA/UL Imaging Data Attestation: I personally reviewed and interpreted this imaging study as follows: My impression: Negative CT head and CT angiography. Discharge Plan Discharge Clinical Impression: Confusion, Delirium due to general medical condition, Intellectual delay Patient Disposition: Still a Patient Condition: Stable Time of Disposition: 06:36
[2025-06-02 23:14] VITALS: BP 174/82
[2025-06-02 23:24] LABS: Hematocrit 36.1 % (37.0-47.0); Hemoglobin 11.8 g/dL (12.0-15.0); Immature Granulocyte Percent A 0.5 % (0-0.5); Lymphocytes Absolute Auto 2.89 K/mm3 (0.9-3.2); Mean Corpuscular HGB Conc 32.7 g/dl (32-36); Mean Corpuscular Hemoglobin 29.4 pg (26-34); Mean Corpuscular Volume 90.0 fl (80-100); Nucleated Red Blood Cells Absolute Auto 0.000 K/mm3 (0.0-0.012); Nucleated Red Blood Cells Perc 0.0 % (0.0-0.2); Platelet Count Result 292 k/mm3 (150-375); Red Blood Count 4.01 M/mm3 (4.2-5.4); White Blood Count 8.7 K/mm3 (4.5-10.0)
[2025-06-02 23:29] LABS: INR 0.9; Prothrombin Time 12.7 Seconds (11.1-14.7)
[2025-06-02 23:30] LABS: Partial Thromboplastin Time 28.2 Seconds (22.3-36.8)
[2025-06-02 23:33] LABS: Alanine Aminotransferase 18 U/L (6-35); Albumin Level 4.2 g/dL (3.5-5.1); Alkaline Phosphatase 63 U/L (38-126); Anion Gap 8 mmol/L (4-12); Aspartate Amino Transferase 35 U/L (14-36); Bilirubin,Total 0.6 mg/dL (0.2-1.3); Blood Urea Nitrogen 5 mg/dL (7-17); Calcium 9.1 mg/dL (8.4-10.2); Carbon Dioxide 24 mmol/L (22-30); Chloride 99 mmol/L (98-107); Estimated CRCL calculation 72 ml/min; Estimated Glomerular Filt Rate > 60; Glucose 106 mg/dL (65-110); Potassium 3.8 mmol/L (3.4-5.0); Sodium 131 mmol/L (137-145); Total Protein 7.0 g/dL (6.3-8.2)
[2025-06-02 23:40] LABS: Troponin I < 0.012 ng/mL (0.000-0.034)
[2025-06-03] VITALS (7 sets, daily range): BP systolic 115–146; BP diastolic 72–81; PULSE 89–108; RESP 16–20; TEMP 36.2–36.6; O2SAT 94–97; BMI 32.1; BMI 32.8
[2025-06-03 02:27] LABS: Add Urine Microscopic? NO; Appearance Urine Clear (Clear); Glucose Urine UA Negative (Negative); Leukocyte Esterase Ur Negative LEU/UL (Negative); Nitrate Urine Negative (Negative); Specific Grav Ur 1.013 (1.001-1.035)
[2025-06-03] MEDS: LACTATED RINGERS 1,000 ML 999 ML IV CONT (05:43)
[2025-06-03] MEDS: cefTRIAXone 1 GM in SODIUM CHLORIDE 0.9% IV 50 ML 100 ML IVPB (05:44)
--- NOTE | 2025-06-03 06:04 | ADMGEN ---
This patient, Supriya Lauren, was admitted to [facility] Surg Room 305-02. Patient/family oriented to hospital policies and general routines including ID bracelet, bed and alarms, visiting hours, pain management, procedures, bathroom and other care routines, personal items, smoking policy, room service/diet, and visiting hours. Information on how to activate the Rapid Response Team has been discussed. Patient/Family are encouraged to report perceived risks to care and to ask questions if they do not understand what they are told or what they should do.
--- NOTE | 2025-06-03 06:25 | PM.IMHP ---
H&P: HPI History of Present Illness Date/Time: 06/03/25 06:25 Chief Complaint: Confusion Narrative: 64-year-old female with cognitive delay, hypertension, hyperlipidemia, diabetes mellitus without current long-term use of insulin. She lives in apartment, her son lives nearby, she is semi-independent. She has a case sealer team. She is brought in with 7 days of confusion. 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 She has only ever for gotten some people's names very rarely. Seven days prior to admission she began to not know where she is, again to wander off. She did this multiple times. Three days prior to admission it was noted she had multiple loose black bowel movements. Otherwise she had no symptoms, no fever, no chest pain, no shortness of breath, denied nausea or vomiting. Patient reports only some left upper quadrant abdominal pain but is very nonspecific about it. She has been eating usual which is very little. She takes scheduled medications every day which include celecoxib 200 mg p.o. q.day, atorvastatin, escitalopram, losartan, metformin, ferrous sulfate, omeprazole. She has not taken any additional aspirin or NSAIDs, no Pepto-Bismol or laxatives otherwise. She had presented to [facility] ER a few days prior as well and she had a contaminated urinalysis but diagnosed with UTI and sent home with p.o. antibiotics. She may for gotten to take some of these doses but repeat urinalysis on admission on 06/03/2025 is unremarkable. Quad viral screen 5 days ago negative. A chest x-ray does not demonstrate any acute findings, abdomen pelvis CT with contrast has no acute findings. Head and neck CTA without acute findings. The family is adamant this is not her baseline and she is confused. They think she has hallucinated some as well hearing dogs that are not therapy. They requested admission for further workup and monitoring. Review of Systems Review of Systems: All systems reviewed & are unremarkable except as noted in HPI and below PMFSH Past Medical History Medical History Diabetes Hyperlipidemia Hypertension Social History Social History Smoking status: Never smoker Meds Home Medications and Allergies Home Medications ?Medication ?Instructions ?Recorded ?Confirmed ?Type cephalexin 500 mg capsule 500 mg PO Q12H 7 days #14 caps 05/31/25 06/03/25 Rx atorvastatin 20 mg tablet 20 mg PO DAILY 06/03/25 06/03/25 History brimonidine 0.2 % eye drops 1 drp EACH EYE DAILY 06/03/25 06/03/25 History celecoxib 200 mg capsule 200 mg PO DAILY 06/03/25 06/03/25 History dorzolamide 2 % eye drops 1 drp EACH EYE DAILY 06/03/25 06/03/25 History escitalopram oxalate 10 mg tablet 10 mg PO DAILY 06/03/25 06/03/25 History fenofibrate nanocrystallized 48 mg 48 mg PO DAILY 06/03/25 06/03/25 History tablet ferrous sulfate 325 mg (65 mg 325 mg PO DAILY 06/03/25 06/03/25 History iron) tablet (FeroSul) latanoprost 0.005 % eye drops 1 drp EACH EYE QAM 06/03/25 06/03/25 History losartan 25 mg tablet 25 mg PO DAILY 06/03/25 06/03/25 History metformin 500 mg tablet,extended 500 mg PO DAILY 06/03/25 06/03/25 History release 24 hr omeprazole 20 mg capsule,delayed 20 mg PO DAILY 06/03/25 06/03/25 History release timolol maleate 0.5 % eye drops 1 drp EACH EYE DAILY 06/03/25 06/03/25 History Allergies Allergy/AdvReac Type Severity Reaction Status Date / Time No Known Allergies Allergy Verified 06/03/25 06:08 Vital Signs Vital Signs - 24 hr 06/02/25 22:54 06/02/25 23:14 06/03/25 04:29 Temperature 97.8 F Pulse Rate 82 89 Respiratory Rate 20 16 Blood Pressure 174/82 H 115/75 Pulse Oximetry 100 94 06/03/25 05:31 06/03/25 05:49 Temperature Pulse Rate 94 89 Respiratory Rate 16 Blood Pressure 115/75 Pulse Oximetry 94 Exam Const: General: comfortable and no acute distress Other: A&O x3, very pleasant HENMT: Mouth: Yes moist mucous membranes Eyes: Pupils: Equal, round and reactive pupils present Neck: Neck: supple Resp: Effort & Inspection: normal respiratory effort Auscultation: clear to auscultation bilaterally Cardio: Rate: regular rate Rhythm: regular rhythm GI: GI Palp: Yes Soft to palpation and No Guarding due to palpation present (GI) Auscultation: normal bowel sounds Other: Questionable tenderness to deep palpation of left upper quadrant : General: Yes bladder normal to palpation Neuro: Motor exam (neuro): 5/5 motor strength present throughout Extrem: General: no edema H&P: Results Labs Labs: Short CBC 06/02/25 Range/Units 23:08 WBC 8.7 (4.5-10.0) K/mm3 Hgb 11.8 L (12.0-15.0) g/dL Hct 36.1 L (37.0-47.0) % Plt Count 292 (150-375) k/mm3 BMP 06/02/25 23:09 Sodium 131 L Potassium 3.8 Chloride 99 Carbon Dioxide 24 BUN 5 L D Creatinine 0.69 L Glucose 106 Calcium 9.1 Cardiac Enzymes 06/02/25 Range/Units 23:09 Troponin I < 0.012 (0.000-0.034) ng/mL Liver Function 06/02/25 Range/Units 23:09 Total Bilirubin 0.6 (0.2-1.3) mg/dL AST 35 (14-36) U/L ALT 18 (6-35) U/L Alkaline Phosphatase 63 (38-126) U/L Albumin 4.2 (3.5-5.1) g/dL Urine 06/03/25 Range/Units 02:21 Urine Color Yellow (Yellow) Urine Appearance Clear (Clear) Urine pH 7.0 (5.0-9.0) Ur Specific [place] 1.013 (1.001-1.035) Urine Protein Negative (Negative) mg/dL Urine Glucose (UA) Negative (Negative) mg/dL Assessment and Plan Assessment and plan (1) Confusion: Code(s): R41.0 - Disorientation, unspecified Status: Acute Plan History has been taken by the son and case sealer present in the ER. Check stool for occult blood. Patient given ceftriaxone however at this time no evidence of infectious etiology. No discernible cause for the patient's confusion starting on 05/27. MRI brain brainstem without and with contrast ordered, neurology consultation for assistance. Check vitamin B12, TSH, vitamin-D level, drugs of abuse screen, salicylates, acetaminophen levels. Full code. Saline lock IV. Heart healthy diet. Hospitalist [facility] Advance Care Plan I have confirmed that the patient's Advanced Care Plan is present, code status is documented, or surrogate decision maker is listed in patient medical record.: Yes Medication Reconciliation I have utilized all available resources to obtain, update and review the patients current medications (includes all prescriptions, OTC, herbals, cannabis, and nutritional supplements).: Yes
[2025-06-03 06:58] LABS: Hematocrit 36.2 % (37.0-47.0); Hemoglobin 11.8 g/dL (12.0-15.0); Immature Granulocyte Percent A 0.4 % (0-0.5); Lymphocytes Absolute Auto 1.79 K/mm3 (0.9-3.2); Mean Corpuscular HGB Conc 32.6 g/dl (32-36); Mean Corpuscular Hemoglobin 29.4 pg (26-34); Mean Corpuscular Volume 90.3 fl (80-100); Nucleated Red Blood Cells Absolute Auto 0.000 K/mm3 (0.0-0.012); Nucleated Red Blood Cells Perc 0.0 % (0.0-0.2); Platelet Count Result 271 k/mm3 (150-375); Red Blood Count 4.01 M/mm3 (4.2-5.4); White Blood Count 7.6 K/mm3 (4.5-10.0)
[2025-06-03 07:08] LABS: Acetaminophen < 10 ug/mL (10-30); Salicylate < 1.0 mg/dL (2-20)
[2025-06-03 07:18] LABS: Alanine Aminotransferase 18 U/L (6-35); Albumin Level 4.0 g/dL (3.5-5.1); Alkaline Phosphatase 76 U/L (38-126); Anion Gap 8 mmol/L (4-12); Aspartate Amino Transferase 39 U/L (14-36); Bilirubin,Total 0.4 mg/dL (0.2-1.3); Blood Urea Nitrogen 5 mg/dL (7-17); Calcium 9.2 mg/dL (8.4-10.2); Carbon Dioxide 25 mmol/L (22-30); Chloride 104 mmol/L (98-107); Estimated CRCL calculation 64 ml/min; Estimated Glomerular Filt Rate > 60; Glucose 112 mg/dL (65-110); Magnesium 2.0 mg/dL (1.6-2.3); Potassium 4.0 mmol/L (3.4-5.0); Sodium 137 mmol/L (137-145); Total Protein 6.8 g/dL (6.3-8.2)
[2025-06-03 07:25] LABS: Procalcitonin 0.1 ng/mL
[2025-06-03 08:07] LABS: Vitamin B12 243.0 pg/mL (239-931)
--- NOTE | 2025-06-03 09:31 | PC.NURSE ---
Attempted to call Jose Solis, son, to complete the MRI screening form. No answer received.
[2025-06-03 10:03] LABS: Cannabinoid Screen Urine Negative (Negative)
[2025-06-03 10:09] LABS: IFOB Positive Control Positive; Immunochemical Fecal Occult Bl Negative (N)
[2025-06-03 10:25] LABS: Thyroid Stimulating Hormone Reflex 2.760 uIU/mL (0.465-4.68)
--- NOTE | 2025-06-03 15:50 | PM.IMPN ---
Progress Note: A&P Assessment and Plan (1) Confusion: Code(s): R41.0 - Disorientation, unspecified Status: Acute Plan 1. Altered mental status Resolved BMP reviewed and no electrolyte abnormality UA was unremarkable MRIs pending Time Spent With Patient Time: 35 minutes Subjective Date/time seen: 06/03/25 15:50 Interval history: Patient is back to baseline. She has intellectual disability. Review of Systems Review of Systems: All systems reviewed & are unremarkable except as noted in HPI and below Exam Narrative: APPEARANCE: No acute distress, awake EYES: EOMI HEENT: Normocephalic, atraumatic, OMM RESPIRATORY: No respiratory distress Clear to auscultation bilaterally with no rhonchi wheezing or rales. CARDIOVASCULAR: RRR, S1 and S2 without murmurs rubs or gallops. ABDOMINAL: Soft, nontender, nondistended, no rebound or guarding MSK: 5/5 motor strength throughout her extremities NEURO: Awake and alert. Following commands, speech normal, no focal deficits SKIN:: Warm, dry. No rashes lesions or abrasions PSYCHIATRIC: Normal affect/moo Objective Data Vital Signs Vital Signs: Vital Signs - 24 hr 06/02/25 22:54 06/02/25 23:14 06/03/25 04:29 Temperature 36.6 C Pulse Rate 82 89 Respiratory Rate 20 16 Blood Pressure 174/82 H 115/75 Pulse Oximetry 100 94 Oxygen Delivery 06/03/25 05:31 06/03/25 05:49 06/03/25 07:39 Temperature 36.6 C Pulse Rate 94 89 92 Respiratory Rate 16 18 Blood Pressure 115/75 137/76 Pulse Oximetry 94 96 Oxygen Delivery 06/03/25 08:58 06/03/25 14:00 06/03/25 14:27 Temperature 36.2 C L Pulse Rate 108 H Respiratory Rate 20 Blood Pressure 146/72 H Pulse Oximetry 97 Oxygen Delivery Room Air Intake/Output Intake/Output: Intake & Output 05/31/25 06/01/25 06/02/25 06/03/25 23:59 22:59 23:59 23:59 Intake Total 594 Output Total 1300 Balance -706 Meds/Results Medications: Active Medications Generic Name Dose Route Start Last Admin Trade Name Freq PRN Reason Stop Dose Admin Acetaminophen 650 mg 06/03/25 04:29 Acetaminophen 325 Mg Tablet PO Q4H PRN Mild Pain (1-3) or Fever Ondansetron HCl 4 mg 06/03/25 04:29 Ondansetron Inj 4 Mg/2 Ml Vial IV PUSH Q4H PRN Nausea Radiology Results: ITS Impressions Abdomen/Pelvis CT 06/03/25 06:15 IMPRESSION: 1. No acute findings. Chest X-Ray 06/03/25 06:19 IMPRESSION: 1. No acute cardiopulmonary findings given portable technique. Head/Neck CTA 06/03/25 07:23 IMPRESSION: 1. Moderate nonspecific cerebral white matter disease, which likely represents chronic small vessel ischemic disease. 2. No aneurysm or significant intracranial arterial stenosis. 3. 31% stenosis of the proximal right internal carotid artery relative to normal distal artery lumen diameter (NASCET criteria). 4. 0% stenosis of the proximal left internal carotid artery relative to normal distal artery lumen diameter. Head CT 06/03/25 08:03 IMPRESSION: 1. Moderate nonspecific cerebral white matter disease, which likely represents chronic small vessel ischemic disease. Labs Labs: Laboratory Results - last 24 hr 06/02/25 06/02/25 06/03/25 23:08 23:09 02:21 WBC 8.7 RBC 4.01 L Hgb 11.8 L Hct 36.1 L MCV 90.0 MCH 29.4 MCHC 32.7 RDW 13.2 Plt Count 292 MPV 10.1 Immature Gran % (Auto) 0.5 Neut % (Auto) 54.4 Lymph % (Auto) 33.1 [place] % (Auto) 10.7 H Eos % (Auto) 0.8 Baso % (Auto) 0.5 Lymph # (Auto) 2.89 [place] # (Auto) 0.9 H Eos # (Auto) 0.1 Baso # (Auto) 0.0 Abs Immat Gran (auto) 0.04 H Absolute Neuts (auto) 4.8 Absolute Nucleated RBC 0.000 Nucleated RBC % 0.0 PT 12.7 INR 0.9 APTT 28.2 Sodium 131 L Potassium 3.8 Chloride 99 Carbon Dioxide 24 Anion Gap 8 BUN 5 L D Creatinine 0.69 L Estim Creat Clear Calc 72 Estimated GFR > 60 Glucose 106 Calcium 9.1 Phosphorus Magnesium Total Bilirubin 0.6 AST 35 ALT 18 Alkaline Phosphatase 63 Troponin I < 0.012 Total Protein 7.0 Albumin 4.2 Vitamin B12 Vitamin D 25-Hydroxy Procalcitonin TSH (Reflex) Urine Color Yellow Urine Appearance Clear Urine pH 7.0 Ur Specific [place] 1.013 Urine Protein Negative Urine Glucose (UA) Negative Urine Ketones Negative Ur Blood (Man) Negative Urine Nitrate Negative Urine Bilirubin Negative Urine Urobilinogen 0.2 Leukocyte Esterase Rfl Negative Stl Occult Blood (IFOB) Salicylates Urine Opiates Screen Urine Methadone Screen Acetaminophen Ur Barbiturates Screen Ur Phencyclidine Scrn Ur Amphetamine Screen U Benzodiazepines Scrn Urine Cocaine Screen U Cannabinoids Screen 06/03/25 06/03/25 06:52 09:36 WBC 7.6 RBC 4.01 L Hgb 11.8 L Hct 36.2 L MCV 90.3 MCH 29.4 MCHC 32.6 RDW 13.2 Plt Count 271 MPV 9.5 Immature Gran % (Auto) 0.4 Neut % (Auto) 66.2 Lymph % (Auto) 23.5 [place] % (Auto) 8.7 H Eos % (Auto) 0.7 Baso % (Auto) 0.5 Lymph # (Auto) 1.79 [place] # (Auto) 0.7 H Eos # (Auto) 0.1 Baso # (Auto) 0.0 Abs Immat Gran (auto) 0.03 Absolute Neuts (auto) 5.0 Absolute Nucleated RBC 0.000 Nucleated RBC % 0.0 PT INR APTT Sodium 137 Potassium 4.0 Chloride 104 Carbon Dioxide 25 Anion Gap 8 BUN 5 L Creatinine 0.68 L Estim Creat Clear Calc 64 Estimated GFR > 60 Glucose 112 H Calcium 9.2 Phosphorus 3.9 Magnesium 2.0 Total Bilirubin 0.4 AST 39 H ALT 18 Alkaline Phosphatase 76 Troponin I Total Protein 6.8 Albumin 4.0 Vitamin B12 243.0 Vitamin D 25-Hydroxy 63.0 Procalcitonin 0.1 TSH (Reflex) 2.760 Urine Color Urine Appearance Urine pH Ur Specific [place] Urine Protein Urine Glucose (UA) Urine Ketones Ur Blood (Man) Urine Nitrate Urine Bilirubin Urine Urobilinogen Leukocyte Esterase Rfl Stl Occult Blood (IFOB) Negative Salicylates < 1.0 L Urine Opiates Screen Negative Urine Methadone Screen Negative Acetaminophen < 10 L Ur Barbiturates Screen Negative Ur Phencyclidine Scrn Negative Ur Amphetamine Screen Negative U Benzodiazepines Scrn Negative Urine Cocaine Screen Negative U Cannabinoids Screen Negative
[2025-06-04 06:00] VITALS: BP 135/70; PULSE 89; RESP 16; TEMP 36.4; O2SAT 96
[2025-06-04] MEDS: FERROUS SULFATE 325 MG TABLET BY MOUTH (09:11)
[2025-06-04] MEDS: LOSARTAN POTASSIUM 25 MG TABLET PO (09:11)
[2025-06-04] MEDS: ATORVASTATIN 20 MG TABLET PO (09:11)
[2025-06-04] MEDS: FENOFIBRATE 48 MG TABLET PO (09:11)
[2025-06-04] MEDS: ESCITALOPRAM OXALATE 10 MG TABLET PO (09:11)
[2025-06-04] MEDS: TIMOLOL MALEATE 0.5% OP SOLN 5 ML BOTTLE 1 DROP EACH EYE (09:12)
[2025-06-04] MEDS: LATANOPROST 0.005% OP SOLN 2.5 ML BTL 1 DROP EACH EYE (09:14)
[2025-06-04] MEDS: ACETAMINOPHEN 325 MG TABLET 650 MG PO ×2 (09:17→19:59)
[2025-06-04 14:00] VITALS: BP 121/51; PULSE 83; RESP 19; TEMP 36.1; O2SAT 98
--- NOTE | 2025-06-04 14:26 | WPDNEURCNPN ---
Assessment and Plan Assessment and plan (1) Neurocognitive disorder: Code(s): R41.9 - Unspecified symptoms and signs involving cognitive functions and awareness Status: Acute (2) Seizure disorder: Code(s): G40.909 - Epilepsy, unspecified, not intractable, without status epilepticus Status: Acute Plan 1. Confusion episodic rule out the possibility of seizure while ruling out the underlying etiologies for the confusion such as B12 folate level TSH T4 and drug screen, CT scan of the head does not reveal any hydrocephalus an MRI of the brain is also negative for any facial lesion. Consult date: 06/04/25 HPI: Supriya Lauren is a 64 year old female Admitted to the hospital for the complaints of increasing confusion seen in the emergency room x2 and with the information that she was wandering into a public bathroom as reviewing that she was in her own bathroom at home. Recently she has been treated for the UTI her initial visit in the ER was for the complaints of dizziness with subsequent possible syncopal episode her CT scan of the head was negative and she has no other associated neurological symptomatology she has been taking the multiple medications which include atorvastatin 20mg daily, Celebrex 200mg daily, E subtle a prime 10mg daily, losartan 25mg daily, metformin 500mg daily, and she is reportedly not allergic to any medications PE she has never smoker never alcohol intake or initial exam in the emergency room was grossly nonfocal , her MRI of the brain revealed no significant abnormalities except the moderate scattered nonspecific white matter hyperintensities 2nd to his small vessel ischemic disease, initial CT scan of the head in the emergency room was negative for the bleed, and CT of the head and neck revealed no aneurysm and no extra or intracranial stenotic lesions. Review of Systems Review of Systems: All systems reviewed & are unremarkable except as noted in HPI and below [facility] Past Medical History Medical History Diabetes Hyperlipidemia Hypertension Social History Social History Smoking status: Never smoker Alcohol intake: never Substance use: never Spiritual care concerns: No Meds Home Medications and Allergies Home Medications ?Medication ?Instructions ?Recorded ?Confirmed ?Type cephalexin 500 mg capsule 500 mg PO Q12H 7 days #14 caps 05/31/25 06/03/25 Rx atorvastatin 20 mg tablet 20 mg PO DAILY 06/03/25 06/03/25 History brimonidine 0.2 % eye drops 1 drp EACH EYE DAILY 06/03/25 06/03/25 History celecoxib 200 mg capsule 200 mg PO DAILY 06/03/25 06/03/25 History dorzolamide 2 % eye drops 1 drp EACH EYE DAILY 06/03/25 06/03/25 History escitalopram oxalate 10 mg tablet 10 mg PO DAILY 06/03/25 06/03/25 History fenofibrate nanocrystallized 48 mg 48 mg PO DAILY 06/03/25 06/03/25 History tablet ferrous sulfate 325 mg (65 mg 325 mg PO DAILY 06/03/25 06/03/25 History iron) tablet (FeroSul) latanoprost 0.005 % eye drops 1 drp EACH EYE QAM 06/03/25 06/03/25 History losartan 25 mg tablet 25 mg PO DAILY 06/03/25 06/03/25 History metformin 500 mg tablet,extended 500 mg PO DAILY 06/03/25 06/03/25 History release 24 hr omeprazole 20 mg capsule,delayed 20 mg PO DAILY 06/03/25 06/03/25 History release timolol maleate 0.5 % eye drops 1 drp EACH EYE DAILY 06/03/25 06/03/25 History Allergies Allergy/AdvReac Type Severity Reaction Status Date / Time No Known Allergies Allergy Verified 06/03/25 06:08 Vital Signs Vital Signs - 24 hr 06/03/25 14:27 06/03/25 20:16 06/04/25 06:00 Temperature 36.4 C L 36.4 C Pulse Rate 96 89 Respiratory Rate 18 16 Blood Pressure 146/72 H 141/81 H 135/70 Pulse Oximetry 97 96 Exam Narrative: Exam revealed her to be awake alert cooperative in no obvious acute distress, she was aware of being in the hospital she was aware of right and left, his speech was hesitant slow but not dysarthric, head was without any cranial bruit, neck was supple without any meningeal signs, without any cervical bruit, heart was regular with no murmur, lungs were clear to auscultation, abdomen is soft nontender, and neurologically she was awake alert was aware of being in the hospital with normal fluent speech pupils are round regular feels the vision was full extraocular moves are full spontaneously there was no nystagmus facial sensation were intact, face was symmetrical tongue was in midline motor examination revealed her to have ability to move both upper and lower extremities without any drift and deep tendon flexor symmetrical plantars were downgoing. There was no evidence of gross cerebellar dysfunction. Results Labs 06/03/25 06:52 06/03/25 06:52
--- NOTE | 2025-06-04 14:28 | PM.DS ---
DS: Admitting Diagnosis Discharge Date 06/04/2025 Admitting Diagnosis Wondering DS: Discharge Diagnosis Discharge Diagnosis (1) Intellectual delay: Code(s): F81.9 - Developmental disorder of scholastic skills, unspecified Status: Acute (2) Neurocognitive disorder: Code(s): R41.9 - Unspecified symptoms and signs involving cognitive functions and awareness Status: Acute DS: Summary Hospital Course Hospital Course: 64-year-old female with cognitive delay, hypertension, hyperlipidemia, diabetes mellitus without current long-term use of insulin. She lives in apartment, her son lives nearby, she is semi-independent. She has a case work aide team. She is brought in with 7 days of confusion. 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 She has only ever for gotten some people's names very rarely. Seven days prior to admission she began to not know where she is, again to wander off. She did this multiple times. Three days prior to admission it was noted she had multiple loose black bowel movements. Otherwise she had no symptoms, no fever, no chest pain, no shortness of breath, denied nausea or vomiting. Patient reports only some left upper quadrant abdominal pain but is very nonspecific about it. She has been eating usual which is very little. She takes scheduled medications every day which include celecoxib 200 mg p.o. q.day, atorvastatin, escitalopram, losartan, metformin, ferrous sulfate, omeprazole. She has not taken any additional aspirin or NSAIDs, no Pepto-Bismol or laxatives otherwise. She had presented to [facility] ER a few days prior as well and she had a contaminated urinalysis but diagnosed with UTI and sent home with p.o. antibiotics. She may for gotten to take some of these doses but repeat urinalysis on admission on 06/03/2025 is unremarkable. Quad viral screen 5 days ago negative. A chest x-ray does not demonstrate any acute findings, abdomen pelvis CT with contrast has no acute findings. Head and neck CTA without acute findings. The family is adamant this is not her baseline and she is confused. They think she has hallucinated some as well hearing dogs that are not therapy. They requested admission for further workup and monitoring. ----- Patient has no observed confusion while inpatient. She is eager to return home, feeling at her baseline. Advised to follow with PCP for dementia workup and management. Vitamin B12 243 Time Spent with Patient Time attestation: Total time spent providing and/or coordinating discharge services: Discharge Plan Discharge Attending physician on discharge: Jenny Pires Consulting providers: Jayla Morales; Aurelio Feliciano Discharging Clinician: Jenny Pires Patient Disposition: Home Activity: may shower Diet: as tolerated Patient Instructions: Antibiotic Form Patient Language: Japanese Stand Alone Forms: General Discharge Information Follow-up/Referrals: Sg,Bart Bertrand MD [Primary Care Provider, Unknown] - 1 Week Referral Note: Follow-up on intermittent confusion, dementia workup Discharge Medications: Continued cephalexin 500 mg capsule 500 mg PO Q12H 7 Days Qty: 14 0RF atorvastatin 20 mg tablet 20 mg PO DAILY brimonidine 0.2 % drops 1 drp EACH EYE DAILY celecoxib 200 mg capsule 200 mg PO DAILY dorzolamide 2 % drops 1 drp EACH EYE DAILY escitalopram oxalate 10 mg tablet 10 mg PO DAILY fenofibrate nanocrystallized 48 mg tablet 48 mg PO DAILY ferrous sulfate [FeroSul] 325 mg (65 mg iron) tablet 325 mg PO DAILY latanoprost 0.005 % drops 1 drp EACH EYE QAM losartan 25 mg tablet 25 mg PO DAILY metformin 500 mg tablet extended release 24 hr 500 mg PO DAILY omeprazole 20 mg capsule,delayed release(DR/EC) 20 mg PO DAILY timolol maleate 0.5 % drops 1 drp EACH EYE DAILY Date of admission: 06/03/25 04:29 Primary Care Provider: SgBart Admitting Provider: Jenny Pires Attending physician on admission: Jenny Pires Condition: Stable
--- NOTE | 2025-06-04 14:57 | PC.NURSE ---
Called Dr. Cantrell at [phone]. No answer.
--- NOTE | 2025-06-04 18:12 | P.PNIM_ITS ---
Progress Note: A&P Assessment and Plan (1) Neurocognitive disorder: Code(s): R41.9 - Unspecified symptoms and signs involving cognitive functions and awareness Status: Acute Plan B12 level low normal. Pending methylmalonic acid and homocystine levels to help delineate true vitamin B12 deficiency or not. Would be prudent to treat this due to the patient's likely dementia. Nonspecific white matter/chronic small- vessel disease evident on brain MRI. Patient reports resolution of dark stools. Stool occult negative. Full code. SCDs. Time Spent With Patient Time with patient: 15 - 25 minutes Subjective Date/time seen: 06/04/25 18:12 Interval history: No major acute overnight events. Patient has no complaints, she is able to tell me where she is, struggles with the year but eventually gets her right. Review of Systems Review of Systems: All systems reviewed & are unremarkable except as noted in HPI and below (Subjective) Exam Const: General: comfortable and no acute distress HENMT: Mouth: Yes moist mucous membranes Eyes: Pupils: Equal, round and reactive pupils present Neck: Neck: supple Resp: Effort & Inspection: normal respiratory effort Auscultation: clear to auscultation bilaterally Cardio: Rate: regular rate Rhythm: regular rhythm GI: Inspection: non-distended GI Palp: Yes Soft to palpation Extrem: General: no edema Objective Data Vital Signs Vital Signs: Vital Signs - 24 hr 06/03/25 20:16 06/04/25 06:00 06/04/25 14:00 Temperature 97.5 F L 97.6 F 96.9 F L Pulse Rate 96 89 83 Respiratory Rate 18 16 19 Blood Pressure 141/81 H 135/70 121/51 L Pulse Oximetry 97 96 98 Intake/Output Intake/Output: Intake & Output 06/01/25 06/02/25 06/03/25 06/04/25 22:59 23:59 23:59 23:59 Intake Total 834 4210 Output Total 1300 1 Balance -466 4209 Meds/Results Medications: Active Medications Generic Name Dose Route Start Last Admin Trade Name Freq PRN Reason Stop Dose Admin Acetaminophen 650 mg 06/03/25 04:29 06/04/25 09:17 Acetaminophen 325 Mg Tablet PO 650 mg Q4H PRN Administration Mild Pain (1-3) or Fever Atorvastatin Calcium 20 mg 06/04/25 09:00 06/04/25 09:11 Atorvastatin 20 Mg Tablet PO 20 mg DAILY AD Administration Escitalopram Oxalate 10 mg 06/04/25 09:00 06/04/25 09:11 Escitalopram Oxalate 10 Mg Tablet PO 10 mg DAILY AD Administration Fenofibrate 48 mg 06/04/25 09:00 06/04/25 09:11 Fenofibrate 48 Mg Tablet PO 48 mg DAILY AD Administration Ferrous Sulfate 325 mg 06/04/25 09:00 06/04/25 09:11 Ferrous Sulfate 325 Mg Tablet BY MOUTH 325 mg DAILY AD Administration Latanoprost 1 drop 06/04/25 09:00 06/04/25 09:14 Latanoprost 0.005% Op Soln 2.5 Ml Btl EACH EYE 1 drop QAM AD Administration Losartan Potassium 25 mg 06/04/25 09:00 06/04/25 09:11 Losartan Potassium 25 Mg Tablet PO 25 mg DAILY AD Administration Ondansetron HCl 4 mg 06/03/25 04:29 Ondansetron Inj 4 Mg/2 Ml Vial IV PUSH Q4H PRN Nausea Timolol Maleate 1 drop 06/04/25 09:00 06/04/25 09:12 Timolol Maleate 0.5% Op Soln 5 Ml Bottle EACH EYE 1 drop DAILY AD Administration Radiology Results: ITS Impressions Abdomen/Pelvis CT 06/03/25 06:15 IMPRESSION: 1. No acute findings. Chest X-Ray 06/03/25 06:19 IMPRESSION: 1. No acute cardiopulmonary findings given portable technique. Head/Neck CTA 06/03/25 07:23 IMPRESSION: 1. Moderate nonspecific cerebral white matter disease, which likely represents chronic small vessel ischemic disease. 2. No aneurysm or significant intracranial arterial stenosis. 3. 31% stenosis of the proximal right internal carotid artery relative to normal distal artery lumen diameter (NASCET criteria). 4. 0% stenosis of the proximal left internal carotid artery relative to normal distal artery lumen diameter. Head CT 06/03/25 08:03 IMPRESSION: 1. Moderate nonspecific cerebral white matter disease, which likely represents chronic small vessel ischemic disease. Brain MRI 06/03/25 17:35 IMPRESSION: 1. No acute intracranial process or abnormally enhancing brain lesions. 2. Moderate scattered nonspecific white matter T2 hyperintensity consistent with chronic small vessel ischemic disease. Labs Labs: Laboratory Results - last 24 hr 06/04/25 14:50 Folate 5.3
[2025-06-04 21:26] VITALS: O2SAT 98
[2025-06-04 21:28] VITALS: BP 141/71; PULSE 80; RESP 14; TEMP 36.7; O2SAT 98
[2025-06-05] MEDS: ACETAMINOPHEN 325 MG TABLET 650 MG PO (05:05)
[2025-06-05 06:00] VITALS: BP 146/81; PULSE 82; RESP 16; TEMP 36.8; O2SAT 98
--- NOTE | 2025-06-05 07:48 | P.DS_ITS ---
DS: Admitting Diagnosis Discharge Date 06/05/2025 Admitting Diagnosis Altered mental status DS: Discharge Diagnosis Discharge Diagnosis (1) Confusion: Code(s): R41.0 - Disorientation, unspecified Status: Acute (2) Intellectual delay: Code(s): F81.9 - Developmental disorder of scholastic skills, unspecified Status: Acute Plan 64-year-old female with cognitive delay, hypertension, hyperlipidemia, diabetes mellitus without current long-term use of insulin. She lives in apartment, her son lives nearby, she is semi-independent. She has a hospice case manager team. She is brought in with 7 days of confusion. 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 She has only ever forgotten some people's names very rarely. Seven days prior to admission she began to not know where she is, and began to wonder off multiple times. Three days prior to admission it was noted she had multiple loose black bowel movements. Otherwise she had no symptoms, no fever, no chest pain, no shortness of breath, denied nausea or vomiting. Patient reports only some left upper quadrant abdominal pain but is very nonspecific about it. She has been eating usual which is very little. She takes scheduled medications every day which include celecoxib 200 mg p.o. q.day, atorvastatin, escitalopram, losartan, metformin, ferrous sulfate, omeprazole. She has not taken any additional aspirin or NSAIDs, no Pepto-Bismol or laxatives otherwise. Throughout a few days of monitoring she has not have any observed confusion aside from being A&O x2 and struggling with the year sometimes. She converses normally. No evidence of hallucinations. MRI brain does not reveal acute process but moderate scattered nonspecific white matter disease. This in 1st a higher incidence of dementia. Drugs of abuse, salicylates, acetaminophen all negative. No UTI. Procalcitonin 0.1. TSH 2.76. Her black stools have resolved, stool occult is negative. Vitamin B12 level to 43, folate 5.3, homocystine level 16.6. Laboratory tells me the MMA level is a send out and will return for 3-6 days. I attempted to reach out to both contacts however no answer. The patient was unable to grasp the concept of adverse effects of vitamin B12. At this time, she will be discharged in stable condition with follow-up to PCP within 7 days for follow-up on labs and neuropsychiatric evalua tion/referral. The patient was full code during the admission. DS: Summary Hospital Course Hospital Course: 64-year-old female with cognitive delay, hypertension, hyperlipidemia, diabetes mellitus without current long-term use of insulin. She lives in apartment, her son lives nearby, she is semi-independent. She has a hospice case manager team. She is brought in with 7 days of confusion. 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 She has only ever forgotten some people's names very rarely. Seven days prior to admission she began to not know where she is, and began to wonder off multiple times. Three days prior to admission it was noted she had multiple loose black bowel movements. Otherwise she had no symptoms, no fever, no chest pain, no shortness of breath, denied nausea or vomiting. Patient reports only some left upper quadrant abdominal pain but is very nonspecific about it. She has been eating usual which is very little. She takes scheduled medications every day which include celecoxib 200 mg p.o. q.day, atorvastatin, escitalopram, losartan, metformin, ferrous sulfate, omeprazole. She has not taken any additional aspirin or NSAIDs, no Pepto-Bismol or laxatives otherwise. Throughout a few days of monitoring she has not have any observed confusion aside from being A&O x2 and struggling with the year sometimes. She converses normally. No evidence of hallucinations. MRI brain does not reveal acute process but moderate scattered nonspecific white matter disease. This in 1st a higher incidence of dementia. Drugs of abuse, salicylates, acetaminophen all negative. No UTI. Procalcitonin 0.1. TSH 2.76. Her black stools have resolved, stool occult is negative. Vitamin B12 level to 43, folate 5.3, homocystine level 16.6. Laboratory tells me the MMA level is a send out and will return for 3-6 days. I attempted to reach out to both contacts however no answer. The patient was unable to grasp the concept of adverse effects of vitamin B12. At this time, she will be discharged in stable condition with follow-up to PCP within 7 days for follow-up on labs and neuropsychiatric evaluation/referral. The patient was full code during the admission. Time Spent with Patient Time attestation: Total time spent providing and/or coordinating discharge services: Time spent: Greater than 30 minutes Exam Const: General: comfortable and no acute distress HENMT: Mouth: Yes moist mucous membranes Eyes: Pupils: Equal, round and reactive pupils present Neck: Neck: supple Resp: Effort & Inspection: normal respiratory effort Auscultation: clear to auscultation bilaterally Cardio: Rate: regular rate Rhythm: regular rhythm GI: Inspection: non-distended GI Palp: Yes Soft to palpation Extrem: General: no edema DS: Data Data Completed and Pending Labs on day of discharge: Labs from last 24 hours 06/04/25 14:50 Methylmalonic Acid Pending Folate 5.3 Homocysteine 16.6 Discharge Plan Discharge Attending physician on discharge: Jenny Pires Consulting providers: Cuco Morales Riaz Discharging Clinician: Jenny Pires Patient Disposition: Home Activity: november shower Diet: as tolerated Patient Instructions: Antibiotic Form Patient Language: Tamazight Stand Alone Forms: General Discharge Information Follow-up/Referrals: Sg,Bart Bertrand MD [Primary Care Provider, Unknown] - 1 Week Referral Note: Follow-up on intermittent confusion, dementia workup Discharge Medications: Continued cephalexin 500 mg capsule 500 mg PO Q12H 7 Days Qty: 14 0RF atorvastatin 20 mg tablet 20 mg PO DAILY brimonidine 0.2 % drops 1 drp EACH EYE DAILY celecoxib 200 mg capsule 200 mg PO DAILY dorzolamide 2 % drops 1 drp EACH EYE DAILY escitalopram oxalate 10 mg tablet 10 mg PO DAILY fenofibrate nanocrystallized 48 mg tablet 48 mg PO DAILY ferrous sulfate [FeroSul] 325 mg (65 mg iron) tablet 325 mg PO DAILY latanoprost 0.005 % drops 1 drp EACH EYE QAM losartan 25 mg tablet 25 mg PO DAILY metformin 500 mg tablet extended release 24 hr 500 mg PO DAILY omeprazole 20 mg capsule,delayed release(DR/EC) 20 mg PO DAILY timolol maleate 0.5 % drops 1 drp EACH EYE DAILY Date of admission: 06/03/25 04:29 Primary Care Provider: SgBart Admitting Provider: Jenny Pires Attending physician on admission: Jenny Pires Condition: Stable Hospitalist MIPS Heart Failure (Exclusion) Patient has history of Heart Transplant or Left Ventricular Assistive Device?: No IF YES, STOP HERE Heart Failure (Qualifier) Patient has current or prior documentation of LVEF less than or equal to 40%, or mod/servere depressed LVSF?: No IF NO, STOP HERE
[2025-06-05 08:00] VITALS: O2SAT 98
[2025-06-05] MEDS: FERROUS SULFATE 325 MG TABLET BY MOUTH (08:01)
[2025-06-05] MEDS: ESCITALOPRAM OXALATE 10 MG TABLET PO (08:01)
[2025-06-05] MEDS: ATORVASTATIN 20 MG TABLET PO (08:01)
[2025-06-05] MEDS: LOSARTAN POTASSIUM 25 MG TABLET PO (08:01)
[2025-06-05] MEDS: LATANOPROST 0.005% OP SOLN 2.5 ML BTL 1 DROP EACH EYE (08:01)
[2025-06-05] MEDS: FENOFIBRATE 48 MG TABLET PO (08:01)
[2025-06-05] MEDS: TIMOLOL MALEATE 0.5% OP SOLN 5 ML BOTTLE 1 DROP EACH EYE (08:02)
== END 2025-06-05 13:22 | disposition home or self-care (01) ==
LOC: ANHED 06-03 00:19 → ANH3MEDSUR 06-03 05:35
PROVIDERS: Admitting Provider General Practice; Emergency Provider Student in an Organized Health Care Education/Training Program; PCP Family Medicine; Visit Provider General Practice
DX: R41.0 Disorientation, unspecified (principal); G40.909 Epilepsy, unspecified, not intractable, without status epilepticus; E78.5 Hyperlipidemia, unspecified; F79 Unspecified intellectual disabilities; I10 Essential (primary) hypertension; E11.9 Type 2 diabetes mellitus without complications; Z79.84 Long term (current) use of oral hypoglycemic drugs
CPT/HCPCS: 36415; 70450; 70496; 70498; 70553; 71045; 74177; 80053; 80143; 80179; 80307; 81003; 82274; 82306; 82607; 82746; 83090; 83735; 84100; 84145; 84443; 84484; 85025; 85610; 85730; 93005; 99285; A9270; A9577; G0378; J0696; J7120; Q9967